=== PATIENT | female | born 1945 | race Caucasian/White ===

== ENCOUNTER 2020-02-12 18:37 | Emergency (ER) | payer MEDICARE, SELFPAY ==
--- NOTE | ~2020-02-12 | CT_ITS ---
EXAMINATION: CT lumbar spine wo con DATE: 02/12/2020 20:29 INDICATION: Low back pain. Left leg pain. TECHNIQUE: Computed tomography (CT) of the lumbar spine was performed without intravenous contrast. A utomated exposure control and iterative reconstruction technique were employed. The dose-length produ ct was 1163.61 mGy-cm. COMPARISON: None FINDINGS: There is 12 degrees levoscoliosis of lumbar spine. There is 3 mm retrolisthesis of L1 on L2 and L2 on L3, 5 mm anterolisthesis of L4 on L5, and 8 mm anterolisthesis of L5 on S1. There is mild chronic anterior wedging of T11 and T12 vertebral bodies. There is severely decreased disc height fro m T10-T11 through L2-L3, moderately decreased disc height at L3-L4, mildly decreased disc height at L 4-L5, and severely decreased disc height at L5-S1. There is interbody fusion at L5-S1. There is Baast rup disease at L3-L4 and L4-L5. The following disc levels are specifically discussed: L1-L2: The disc is bulging. There is mild bilateral facet joint osteoarthritis. There is mild bilater al neural foraminal stenosis. There is mild central canal stenosis. L2-L3: The disc is bulging. There is mild bilateral facet joint osteoarthritis. There is mild bilater al neural foraminal stenosis. There is mild central canal stenosis. L3-L4: The disc is bulging. There is severe bilateral facet joint osteoarthritis. There is mild bilat eral neural foraminal stenosis. There is mild central canal stenosis. L4-L5: The disc is bulging. There is severe bilateral facet joint osteoarthritis. There is moderate b ilateral neural foraminal stenosis. There is moderate central canal stenosis. L5-S1: There is severe bilateral facet joint osteoarthritis. There is mild bilateral neural foraminal stenosis. There is no central canal stenosis. IMPRESSION: 1. Severe lumbar spondylosis. 2. Lumbar levoscoliosis. Reviewed, dictated and finalized at location A.
[2020-02-12 18:37] VITALS: BP 143/109; PULSE 74; RESP 18; TEMP 36.7; O2SAT 100
--- NOTE | 2020-02-12 19:00 | PC.NURSE ---
Spouse at bedside upset that patient has not yet been given pain medication. Educated that patient must be seen by provider prior to administering pain medications. Made aware provider we will be in as soon as possible.
--- NOTE | 2020-02-12 19:02 | PC.NURSE ---
Provider at bedside for assessment.
--- NOTE | 2020-02-12 19:10 | ED.BACK ---
HPI - Back Pain/Injury General Chief Complaint: Extremity Problem,Nontraumatic Stated Complaint: L leg pain Time Seen by Provider: 02/12/20 18:40 Source: patient Mode of arrival: EMS Limitations: no limitations History of Present Illness HPI Narrative: This is a 74 year old female that presents to the ER for left sided low back pain. Reports history of chronic back problems. Reports she sees pain management for this. Reports the pain radiates down her left leg. No recent injury or trauma. Reports about one week ago she had spinal injections which gave her some relief the first couple of days, but pain has worsened since. Denies fever, saddle anesthesia, or bowel/bladder incontinence. Related Data Home Medications Medication Instructions Recorded Confirmed calcium carbonate 500 mg (1,250 1 tablet PO DAILY 03/17/19 03/29/19 mg)-vitamin D3 200 unit tablet melatonin 5 mg tablet 5 mg PO .QHS tablet 03/17/19 03/29/19 omega-3 fatty acids-fish oil 300 300 cap PO DAILY cap 03/17/19 03/29/19 mg-500 mg capsule omeprazole 40 mg capsule,delayed 40 mg PO DAILY 03/18/19 03/29/19 release Allergies Allergy/AdvReac Type Severity Reaction Status Date / Time Penicillins Allergy Unknown AIRWAY Verified 02/12/20 18:44 CLOSES Sulfa (Sulfonamide Allergy Unknown UNKNOWN Verified 02/12/20 18:44 Antibiotics) Review of Systems Review of Systems: Narrative: CONSTITUTIONAL: Denies fever SKIN: Denies rash MUSCULOSKELETAL: Reports back pain, joint pain, and myalgia. NEUROLOGIC: Denies numbness, or weakness. All systems reviewed & are unremarkable except as noted in HPI and below PMFSH Past Medical History Medical History (Updated 02/12/20 @ 21:44 by Lexus Beatty PA-C) Chronic low back pain with left-sided sciatica Depression Duodenal ulcer Dyslipidemia Essential (primary) hypertension GERD (gastroesophageal reflux disease) Hx of adenomatous colonic polyps Idiopathic peripheral neuropathy Neuropathy Pre-diabetes RLS (restless legs syndrome) Sciatica Surgical History Surgical History (Updated 03/29/19 @ 12:43 by Cornelia Moore APRN) Hx of colonoscopy Hx of esophagogastroduodenoscopy Hx of parotidectomy Hx of tonsillectomy Family History Family History (Updated 03/29/19 @ 12:45 by Cornelia Moore APRN) Mother Hypertension Acute myocardial infarction Grandparent Acute myocardial infarction Other Acute myocardial infarction Social History Social History (Updated 03/29/19 @ 12:45 by Cornelia Moore APRN) Smoking packs per day: 1 Smoking cigarettes per day: 20.0 Years smoked: 45 Smoking pack-years: 45.00 Smoking status: Former smoker Tobacco type: cigarettes Second hand tobacco smoke exposure: No Alcohol intake: current Drinks per week: 2 Substance use: never Substance use type: does not use Gender identity (if verbalized by the patient): Female Exam Narrative: Exam Narrative: GENERAL: Well-appearing, obese, and in no acute distress. HEAD: Normocephalic, atraumatic. EYES: EOMI. CHEST: Clear to auscultation. No respiratory distress. No wheezes rales or rhonchi HEART: Regular rate and rhythm. No murmur heard. Normal peripheral pulses. BACK: No midline spinal tenderness EXTREMITIES: Normal range of motion. No edema. Strength equal in bilateral lower extremities (5/5) SKIN: Warm, dry, no rash. NEURO: No focal deficits. Alert and oriented x3. PSYCH: Normal mood and affect Course Vital Signs Vital signs: Vital Signs Temperature 98.1 F 02/12/20 18:37 Pulse Rate 74 02/12/20 18:37 Respiratory Rate 18 02/12/20 18:37 Blood Pressure 143/109 H 02/12/20 18:37 Pulse Oximetry 100 02/12/20 18:37 Temperature 98.1 F 02/12/20 18:37 Pulse Rate 74 02/12/20 18:37 Respiratory Rate 18 02/12/20 18:37 Blood Pressure 119/78 02/12/20 19:29 Pulse Oximetry 100 02/12/20 18:37 MDM - Back Pain/Injury MDM Narrative Medical decision making narr
[2020-02-12] MEDS: diazePAM INJ (*CRX) 10 MG/2 ML SYRINGE 5 MG IV PUSH (19:19)
[2020-02-12 19:25] LABS: Basophils Percent Auto 0.4 % (0.2-1.2); Eosinophils Absolute Auto 0.2 K/mm3 (0-0.3); Eosinophils Percent Auto 1.7 % (0-4.4); Hematocrit 38.4 % (37.0-47.0); Hemoglobin 12.7 g/dL (12.0-15.0); Immature Granulocyte Absolute 0.04 K/mm3 (0.00-0.031); Immature Granulocyte Percent A 0.4 % (0-0.5); Lymphocytes Absolute Auto 3.23 K/mm3 (0.9-3.2); Lymphocytes Percent Auto 34.9 % (18.3-44.2); Mean Corpuscular HGB Conc 33.1 g/dl (32-36); Mean Corpuscular Hemoglobin 32.2 pg (26-34); Mean Corpuscular Volume 97.2 fl (80-100); Mean Platelet Volume 9.7 fl (7.4-10.4); Monocytes Absolute Auto 0.8 K/mm3 (0.1-0.6); Monocytes Percent Auto 8.1 % (2.6-8.5); Neutrophils Percent Auto 54.5 % (45.5-73.1); Platelet Count Result 252 k/mm3 (150-375); Red Blood Count 3.95 M/mm3 (4.2-5.4); Red Cell Distribution Width 12.7 % (11.5-14.5); White Blood Count 9.3 K/mm3 (4.5-10.0)
--- NOTE | 2020-02-12 19:25 | PC.NURSE ---
Called pharmacy for I tylenol. They were making it.
[2020-02-12 19:29] VITALS: BP 119/78
[2020-02-12 19:40] LABS: Anion Gap 9 mmol/L (8-16); Blood Urea Nitrogen 38 mg/dL (7-17); CRP 0.5 mg/dL (<1.0); Calcium 9.5 mg/dL (8.4-10.2); Carbon Dioxide 29 mmol/L (22-30); Chloride 99 mmol/L (98-107); Estimated CRCL calculation 49 ml/min; Estimated Glomerular Filt Rate 54; Glucose 95 mg/dL (65-105); Potassium 4.4 mmol/L (3.4-5.0); Sodium 137 mmol/L (137-145)
[2020-02-12 19:55] LABS: Erythrocyte Sedimentation Rate 50 mm/hr (0-20)
[2020-02-12] MEDS: MORPHINE SULFATE (*CRX) 4 MG/ML INJ IV PUSH (20:01)
[2020-02-12] MEDS: ONDANSETRON INJ 4 MG/2 ML VIAL IV PUSH (20:01)
--- NOTE | 2020-02-12 20:06 | PC.NURSE ---
refused CT due to pain. Made ErP aware and she ordered new meds. Pt requested I wait to call CT back until rshe has some releif from morphine
--- NOTE | 2020-02-12 20:23 | PC.NURSE ---
Pt to CT
--- NOTE | 2020-02-12 20:42 | PC.NURSE ---
Helped pt to use bedside commode. Moved around well and she states the pain was much better. Pt disposition was improved as well.
[2020-02-12] MEDS: KETOROLAC 30 MG/ML VIAL (*BKC) IV PUSH (21:46)
[2020-02-12 22:05] VITALS: BP 108/68; PULSE 58; RESP 18; O2SAT 98
[2020-02-12 22:29] VITALS: BP 111/59; PULSE 61; RESP 18; O2SAT 98
== END 2020-02-12 22:31 | disposition home or self-care (01) ==
PROVIDERS: Physician Assistant; Emergency Provider Emergency Medicine; PCP Family Medicine
DX: M54.42 Lumbago with sciatica, left side (principal); E78.5 Hyperlipidemia, unspecified; I10 Essential (primary) hypertension; K21.9 Gastro-esophageal reflux disease without esophagitis; G60.9 Hereditary and idiopathic neuropathy, unspecified; G25.81 Restless legs syndrome; Z87.891 Personal history of nicotine dependence; M47.816 Spondylosis without myelopathy or radiculopathy, lumbar region
CPT/HCPCS: 36415; 72131; 80048; 85025; 85652; 86140; 96374; 96375; 99284; J0131; J1885; J2270; J2405; J3360

== ENCOUNTER 2020-07-06 16:14 | Outpatient (CLI) | payer MEDICARE, SELFPAY | END 2020-07-06 16:15 | disposition home or self-care (01) | LOC: ANHCOVIDVC 16:14 | PROVIDERS: PCP Family Medicine | DX: Z23 Encounter for immunization (principal) | CPT/HCPCS: 0001A; 91300 ==

== ENCOUNTER 2020-07-27 16:19 | Outpatient (CLI) | payer MEDICARE, SELFPAY | END 2020-07-27 16:20 | disposition home or self-care (01) | LOC: ANHCOVIDVC 16:20 | PROVIDERS: PCP Family Medicine | DX: Z23 Encounter for immunization (principal) | CPT/HCPCS: 0002A; 91300 ==

== ENCOUNTER 2021-03-19 16:04 | Outpatient (CLI) | payer MEDICARE, SELFPAY ==
--- NOTE | ~2021-03-19 | XR_ITS ---
XR shoulder RT min 2V 03/19/2021 16:36 Indication: Right shoulder pain Procedure: 4 views right shoulder Comparison: No prior studies for comparison. Findings: There is severe polyarticular osteoarthritis of the right shoulder with superior subluxatio n of the humeral head, suspicious for rotator cuff tear. There are loose bodies superior to the acrom ioclavicular joint. No acute fracture, subluxation or dislocation. Visualized lung parenchyma is unre markable. 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 Reviewed, dictated and finalized at location A. 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
== END 2021-03-19 16:05 | disposition home or self-care (01) ==
LOC: ANHIMG 16:09
PROVIDERS: PCP Family Medicine; Visit Provider Family Medicine
DX: M19.011 Primary osteoarthritis, right shoulder (principal)
CPT/HCPCS: 73030

== ENCOUNTER 2021-08-30 00:30 | Day surgery (SDC) | payer MEDICARE, SELFPAY ==
[2021-08-23 12:51] VITALS: BMI 38.5
[2021-08-30 11:10] VITALS: BP 141/79; PULSE 77; RESP 18; TEMP 37.2; O2SAT 100
[2021-08-30] MEDS: LACTATED RINGERS 1,000 ML 150 ML IV CONT (11:12)
--- NOTE | 2021-08-30 11:20 | PM.HPGS ---
History of Present Illness History of Present Illness Consent: Risks, benefits, and alternatives have been discussed and questions answered. Patient agrees to proceed with procedure. Chief complaint: melena Narrative: Desirae José is a 75 year old female Who has been found to be markedly anemic. About 5 weeks ago she had black tarry stools for about a 2 week. She does not have a bowel movement every day because she is chronically on opioids. She has not seen any red blood her stools. She was having some nausea with that but not having abdominal pain. several years ago she had a duodenal ulcer that was healed on follow-up EGD a few months later. She has been using aspirin recently. Review of Systems Review of Systems: All systems reviewed & are unremarkable except as noted in HPI and below PMFSH Past Medical History Medical History Chronic low back pain with left-sided sciatica CKD (chronic kidney disease) stage 3, GFR 30-59 ml/min Depression Duodenal ulcer Dyslipidemia Essential (primary) hypertension GERD (gastroesophageal reflux disease) Hx of adenomatous colonic polyps Idiopathic peripheral neuropathy Neuropathy Pre-diabetes RLS (restless legs syndrome) Sciatica Surgical History Surgical History Hx of colonoscopy (~2019) Hx of esophagogastroduodenoscopy (~2019) Hx of parotidectomy (~2004) 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story Smoking packs per day: 1 Smoking cigarettes per day: 20.0 Years smoked: 2 Smoking pack-years: 2.00 Smoking status: Former smoker Tobacco type: cigarettes Second hand tobacco smoke exposure: No Alcohol intake: current Drinks per week: 2 Alcohol use details: rarely Substance use: never Substance use type: does not use Living arrangements: with family Gender identity (if verbalized by the patient): Female Spiritual care concerns: No Meds Home Medications and Allergies Home Medications Medication Instructions Recorded Confirmed Type calcium carbonate 500 mg-vitamin 1 tablet PO DAILY 03/17/19 08/30/21 History D3 5 mcg (200 unit) tablet omega-3 fatty acids-fish oil 300 300 cap PO DAILY cap 03/17/19 08/30/21 History mg-500 mg capsule hydrocodone 10 mg-acetaminophen 1 tablet PO QID PRN tablet 11/30/20 08/30/21 History 325 mg tablet topiramate 25 mg tablet 25 mg PO DAILY 03/19/21 08/30/21 History ropinirole 1 mg tablet 2 mg PO QHS #180 tablet 07/05/21 08/30/21 Rx duloxetine 60 mg capsule,delayed 60 mg PO DAILY #90 cap 08/13/21 08/30/21 Rx release lisinopril 20 1 tablet PO DAILY #90 tablet 08/13/21 08/30/21 Rx mg-hydrochlorothiazide 12.5 mg tablet magnesium 250 mg tablet 250 mg PO DAILY 08/21/21 08/30/21 History multivitamin with minerals-folic 1 tablet PO DAILY 08/21/21 08/30/21 History acid 120 mcg chewable tablet naloxegol 25 mg tablet 25 mg PO DAILY tablet 08/21/21 08/30/21 History omeprazole 40 mg capsule,delayed 40 mg PO DAILY 08/21/21 08/30/21 History release atorvastatin 40 mg tablet 40 mg PO QHS #90 tablet 08/27/21 08/30/21 Rx Allergies Allergy/AdvReac Type Severity Reaction Status Date / Time Penicillins Allergy Unknown AIRWAY Verified 08/30/21 11:08 CLOSES Sulfa (Sulfonamide Allergy Unknown UNKNOWN Verified 08/30/21 11:08 Antibiotics) Vital Signs Vital Signs - 24 hr 08/30/21 11:10 Temperature 37.2 C Pulse Rate 77 Respiratory Rate 18 Blood Pressure 141/79 H Pulse Oximetry 100 Exam Const: General: alert Orientation/consciousness: patient oriented x3 Re
--- NOTE | 2021-08-30 11:28 | WPDANESEPPF ---
Anes - Initial Pre Proc Eval Procedure: Operation Date: 08/30/21 13:00 Proposed Procedures p Esophagogastroduodenoscopy - Peter Melissa MD Date/Time: 08/30/21 11:28 Surgeon: Peter Melissa MD Pre Op Diagnosis: melena Patient Data Age: 75 Gender: F Height: 1.57 m Weight: 97.1 kg Last Vital Signs Temp 37.2 C 08/30/21 11:10 Pulse 77 08/30/21 11:10 Resp 18 08/30/21 11:10 BP 141/79 H 08/30/21 11:10 Pulse Ox 100 08/30/21 11:10 Allergies Allergy/AdvReac Type Severity Reaction Status Date / Time Penicillins Allergy Unknown AIRWAY Verified 08/30/21 11:08 CLOSES Sulfa (Sulfonamide Allergy Unknown UNKNOWN Verified 08/30/21 11:08 Antibiotics) Home Medications Medication Instructions Recorded Confirmed Type calcium carbonate 500 mg-vitamin 1 tablet PO DAILY 03/17/19 08/30/21 History D3 5 mcg (200 unit) tablet omega-3 fatty acids-fish oil 300 300 cap PO DAILY cap 03/17/19 08/30/21 History mg-500 mg capsule hydrocodone 10 mg-acetaminophen 1 tablet PO QID PRN tablet 11/30/20 08/30/21 History 325 mg tablet topiramate 25 mg tablet 25 mg PO DAILY 03/19/21 08/30/21 History ropinirole 1 mg tablet 2 mg PO QHS #180 tablet 07/05/21 08/30/21 Rx duloxetine 60 mg capsule,delayed 60 mg PO DAILY #90 cap 08/13/21 08/30/21 Rx release lisinopril 20 1 tablet PO DAILY #90 tablet 08/13/21 08/30/21 Rx mg-hydrochlorothiazide 12.5 mg tablet magnesium 250 mg tablet 250 mg PO DAILY 08/21/21 08/30/21 History multivitamin with minerals-folic 1 tablet PO DAILY 08/21/21 08/30/21 History acid 120 mcg chewable tablet naloxegol 25 mg tablet 25 mg PO DAILY tablet 08/21/21 08/30/21 History omeprazole 40 mg capsule,delayed 40 mg PO DAILY 08/21/21 08/30/21 History release atorvastatin 40 mg tablet 40 mg PO QHS #90 tablet 08/27/21 08/30/21 Rx Patient hx anesthesia problems: none Family hx anesthesia problems: none Results Review: All pre-operative results and documents have been reviewed as part of the pre-operative evaluation. [facility] Past Medical History Medical History Chronic low back pain with left-sided sciatica CKD (chronic kidney disease) stage 3, GFR 30-59 ml/min Depression Duodenal ulcer Dyslipidemia Essential (primary) hypertension GERD (gastroesophageal reflux disease) Hx of adenomatous colonic polyps Idiopathic peripheral neuropathy Neuropathy Pre-diabetes RLS (restless legs syndrome) Sciatica Surgical History Surgical History Hx of colonoscopy (~2018) Hx of esophagogastroduodenoscopy (~2018) Hx of parotidectomy (~2004) 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story Smoking packs per day: 1 Smoking cigarettes per day: 20.0 Years smoked: 2 Smoking pack-years: 2.00 Smoking status: Former smoker Tobacco type: cigarettes Second hand tobacco smoke exposure: No Alcohol intake: current Drinks per week: 2 Alcohol use details: rarely Substance use: never Substance use type: does not use Living arrangements: with family Gender identity (if verbalized by the patient): Female Spiritual care concerns: No Anes - Eval Final PreProcedure Day of Procedure 08/30/21 11:28 Patient weight: obese Heart: regular rate and rhythm Lungs: clear to auscultation Airway: Mallampati scale class II Neurological: alert and oriented Last oral intake: >/= 8 hours ASA classification: III Emergent: no Anesthetic plan: proceed Anesthesia type and monitoring: general GIVS and standard monitoring Results Review: All pre-op
[2021-08-30 11:59] VITALS: BP 115/70; PULSE 59; RESP 23; O2SAT 100
[2021-08-30 12:09] VITALS: BP 132/81; PULSE 61; RESP 16; O2SAT 100
[2021-08-30 12:19] VITALS: BP 124/72; PULSE 60; RESP 28; O2SAT 100
== END 2021-08-30 12:30 | disposition home or self-care (01) ==
PROVIDERS: PCP Family Medicine; Visit Provider Internal Medicine Gastroenterology
PROC: 0DJ08ZZ Inspection of Upper Intestinal Tract, Via Natural or Artificial Opening Endoscopic (ICD-10-PCS; CPT 43235; principal; 2021-08-30 13:00)
DX: K92.1 Melena (principal); K29.71 Gastritis, unspecified, with bleeding; K21.9 Gastro-esophageal reflux disease without esophagitis; K29.80 Duodenitis without bleeding; I12.9 Hypertensive chronic kidney disease with stage 1 through stage 4 chronic kidney disease, or unspecified chronic kidney disease; N18.30 Chronic kidney disease, stage 3 unspecified; E78.5 Hyperlipidemia, unspecified; R73.03 Prediabetes; M54.42 Lumbago with sciatica, left side; G60.9 Hereditary and idiopathic neuropathy, unspecified; G25.81 Restless legs syndrome; F32.A Depression, unspecified; Z87.11 Personal history of peptic ulcer disease; Z87.891 Personal history of nicotine dependence; Z86.010 Personal history of colon polyps; Z79.891 Long term (current) use of opiate analgesic
CPT/HCPCS: 43239; 87081; J2704; J7120

== ENCOUNTER 2021-09-11 15:48 | Outpatient (CLI) | payer MEDICARE, SELFPAY ==
--- NOTE | ~2021-09-11 | MM_ITS ---
EXAMINATION: MM screening abby BI w kerri HISTORY: Screening mammogram TECHNIQUE: Craniocaudal and mediolateral oblique 3-D tomosynthesis images were obtained and synthetic 2-D images were generated. CAD analysis was submitted and interpreted. COMPARISON: None BREAST PARENCHYMAL COMPOSITION: The breasts are almost entirely fatty. FINDINGS: There is no suspicious mass, calcification, or architectural distortion to suggest malignan cy in either breast. IMPRESSION: 1. No mammographic evidence of malignancy. 2. Recommend routine screening mammography in one year. BI-RADS Category 1: Negative Reviewed, dictated and finalized at location A.
== END 2021-09-11 15:49 | disposition home or self-care (01) ==
PROVIDERS: PCP Family Medicine; Visit Provider Family Medicine
DX: Z12.31 Encounter for screening mammogram for malignant neoplasm of breast (principal)
CPT/HCPCS: 77063; 77067

== ENCOUNTER 2021-09-21 08:57 | Outpatient (CLI) | payer MEDICARE, SELFPAY ==
--- NOTE | ~2021-09-21 | NM_ITS ---
EXAMINATION: NM thor stress w perfusion DATE: 09/21/2021 14:56 INDICATION: Other chest pain. TECHNIQUE: Rest images were obtained following intravenous administration of 9.3 mCi Tc99m tetrofosmi n (Myoview). The patient was infused intravenously with Lexiscan (regadenoson). Then, 29.6 mCi Tc99m tetrofosmin (Myoview) was administered intravenously, and stress images were obtained. Data was recon structed into short axis and horizontal and vertical long axis SPECT images. Gated SPECT images were also obtained. COMPARISON: None. FINDINGS: There is a moderate-sized, mild, reversible perfusion defect involving left ventricular ape x, apical septal segment, and apical anterior segment, consistent with ischemia. There is a small, mi ld, fixed perfusion defect involving mid inferolateral segment of left ventricle, consistent with inf arct. There is no segmental wall motion abnormality. Left ventricular ejection fraction measures 64% . IMPRESSION: 1. Moderate-sized area of mild ischemia involving left ventricular apex, apical septal segment, and a pical anterior segment. I discussed this result with Selene De La Cruz. 2. 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 3. Normal left ventricular ejection fraction measuring 64%. Reviewed, dictated and finalized at location A. IMPRESSION: 1. Moderate-sized area of mild ischemia involving left ventricular apex, apical septal segment, and apical anterior segment. I discussed this result with Christine De La Cruz. 2. Small area of mild infarct involving mid inferolateral segment of left ventr icle. 3. Normal left ventricular ejection fraction measuring 64%.
--- NOTE | 2021-09-21 09:08 | EST_ITS ---
Patient Info Name: Desirae José Age: 75 years : 1945 Gender: Female Ht: 62 in Wt: 216 lbs BSA: 2.12 m2 HR: 65 bpm BP: 121 / 79 mmHg Heart Rhythm: Sinus Rhythm Exam Date: 09/21/2021 10:08 AM Exam Location: [facility] Stress Patient Status: Outpatient Admit Date: 09/21/2021 Staff Ordering Physician: Kalpana Hardy MD Attending Provider: Kalpana Hardy MD Exercise Technologist: Joanne Ibrahim CT Exercise Physician: Lopez Conti DO Exam Type: CA stress thor w NM Study Info Indications R06.00 - Dyspnea, unspecified R07.9 - Chest pain, unspecified A regadenoson stress test was performed. Summary 1. 1. Negative lexiscan stress test for ischemic ST changes by ECG criteria. 2. 2. Stable hemodynamics throughout the test. 3. 3. Nuclear scan to follow and will be reported separately. Please correlate with it. 4. 4. Patient informed of the above results. Protocol: Lexiscan Stress ECG Details Stage: REST Duration (min): 11 min : 34 sec HR (bpm): 62 SBP (mmHg): 121 DBP (mmHg): 79 Stage: STAGE 1 Duration (min): 0 min : 59 sec HR (bpm): 77 SBP (mmHg): 121 DBP (mmHg): 79 Stage: RECOVERY Duration (min): 1 min : 0 sec HR (bpm): 76 SBP (mmHg): 121 DBP (mmHg): 79 Stage: RECOVERY Duration (min): 2 min : 0 sec HR (bpm): 75 SBP (mmHg): 110 DBP (mmHg): 88 Stage: RECOVERY Duration (min): 3 min : 0 sec HR (bpm): 70 SBP (mmHg): 108 DBP (mmHg): 83 Stage: RECOVERY Duration (min): 3 min : 3 sec HR (bpm): 70 SBP (mmHg): 108 DBP (mmHg): 83 Rest HR: 62 bpm Peak HR: 77 bpm Rest Sys BP: 121 mmHg Peak Sys BP: 110 mmHg Max Pred HR: 145 bpm % Max Pred HR: 53 % Target HR: 123 bpm Max RPP: 8,470 bpm*mmHg Termination Reason: Completed protocol Cardiac Symptoms: None Total Time: 1 min : 0 sec Rest Roberts BP: 79 mmHg Peak Roberts BP: 88 mmHg Total Dose: 0.4 mg Resting ECG Sinus rhythm, low voltage in diffuse leads, IVCD, PRWP. Stress ECG No ST changes. Arrhythmias None. Report Signatures
== END 2021-09-21 08:58 | disposition home or self-care (01) ==
PROVIDERS: PCP Family Medicine; Visit Provider Family Medicine
DX: R06.00 Dyspnea, unspecified (principal); R07.89 Other chest pain; R94.39 Abnormal result of other cardiovascular function study
CPT/HCPCS: 78452; 93017; A9502; J0280; J2785

== ENCOUNTER 2021-10-15 12:59 | Outpatient (CLI) | payer MEDICARE, SELFPAY ==
--- NOTE | ~2021-10-15 | US_ITS ---
EXAMINATION: US venous doppler [facility] DATE: 10/15/2021 14:02 INDICATION: Lower limb swelling TECHNIQUE: Grayscale ultrasound images without and with compression and Doppler ultrasound images of the bilateral lower extremity veins were obtained. COMPARISON: None. FINDINGS: The visualized portions of right common femoral vein, profunda (deep) femoral vein, femoral vein, pop liteal vein, posterior tibial veins, peroneal veins, gastrocnemius vein and greater saphenous vein ou tflow are patent. The visualized portions of left common femoral vein, profunda femoral vein, femoral vein, popliteal v ein, posterior tibial veins, peroneal veins, gastrocnemius vein and greater saphenous vein outflow ar e patent. IMPRESSION: 1. No deep venous thrombosis in either lower limb. Reviewed, dictated and finalized at location B.
== END 2021-10-15 13:00 | disposition home or self-care (01) ==
PROVIDERS: PCP Family Medicine; Visit Provider Internal Medicine Cardiovascular Disease
DX: R60.0 Localized edema (principal)
CPT/HCPCS: 93970

== ENCOUNTER 2022-01-24 11:00 | Outpatient (RCR) | payer MEDICARE, SELFPAY | END 2022-01-28 16:29 | disposition home or self-care (01) | LOC: ANHCPREHAB 11:00 | PROVIDERS: PCP Family Medicine; Visit Provider Internal Medicine Cardiovascular Disease | DX: Z95.5 Presence of coronary angioplasty implant and graft (principal) | CPT/HCPCS: 93798 ==

== ENCOUNTER 2022-05-09 12:35 | Outpatient (RCR) | payer MEDICARE, SELFPAY ==
--- NOTE | 2022-05-09 13:46 | PTOPEVAL1 ---
Assessment and note entered by Renae Otero, PT, CLT Evaluation Information Assessment Status Evaluation Diagnosis B LE lymphedema Onset October 2021 Subjective Information have had swelling in legs off/on for long time; L always bigger than R; since heart surgery in October, legs have gotten bigger and problems getting shoes on; have been wearing compression leggings and they have helped; furosemide has been increased under pain management care for back and R shoulder pain Reported Pain Level Pain Score 2/10 Self Report Additional Pain Score Comments both legs heavy and uncomfortable; chronic pain in tail bone, sciatica--into posterior legs; take opioids for it; Assessment PT Clinical Summary Desirae Anderson has the diagnosis of B LE lymphedema. She reports chronic problems with legs swelling that increased after her heart surgery this summer. Her legs are heavy and tight, and shoes no longer fit. She has been working on weight loss. 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 Skilled PT for lymphedema treatment- including multilayer compression wraps, manual lymph drainage, intermittent compression pump, education to manage her lymphedema, compression garment for her to obtain. Plan of Care Interventions Intermittent Compression,Lymphedema Compression Pump Manual Lymph Drainage,Manual Therapy,Therapeutic Exercise PT Services Indicated Yes Treatment Frequency and 3x/wk for 5 weeks Duration These treatments will address the objective and functional deficits as defined above. The patient will be advanced safely and appropriately in order for the patient to progress towards his/her prior level of function. Additional exercises will be introduced and as well as a comprehensive home exercise program upon discharge, if needed, ?to ensure carryover of functional gains achieved in the clinic. This treatment plan has been reviewed and agreement upon by the patient.
--- NOTE | 2022-05-20 13:46 | PCPTNOTE ---
pt called and canceled all appointments; I called her back, she stated she is going to pursue other options and did not want therapy at this time. Discussed with her she would need a new dr order if want to come back. She did not have any questions.
--- NOTE | 2022-05-20 13:48 | PCPTNOTE ---
PHYSICAL THERAPY DISCHARGE 05-20-22 Attending Provider: Skinny Hardy MD Patient:Desirae José Date of :1945 Mrs. José had the PT evaluation on May 09 for the diagnosis of B LE lymphedema. She called last week and canceled all of her appointments, stated she was going to pursue other options. And did not want therapy at this time. Therefore, she will be discharged from PT services. The goals were not met. Thank you for referring this patient to [facility].
== END 2022-05-20 17:06 | disposition home or self-care (01) ==
LOC: ANHPT 12:35
PROVIDERS: PCP Family Medicine; Visit Provider Family Medicine
DX: I89.0 Lymphedema, not elsewhere classified (principal)
CPT/HCPCS: 97161

== ENCOUNTER 2022-07-19 12:56 | Emergency (ER) | payer MEDICARE, SELFPAY ==
--- NOTE | ~2022-07-19 | XR_ITS ---
Left Knee Technique: AP, lateral, and oblique views were obtained. Clinical History: Pain Findings: No fracture or dislocation is seen. There is severe tricompartmental osteoarthritis, with l arge tricompartmental osteophytes and joint space narrowing. Diffuse subcutaneous soft tissue edema n oted. No joint effusion is seen. Impression: No fracture or dislocation. Severe tricompartmental osteoarthritis. Diffuse subcutaneous soft tissue edema, nonspecific. Reviewed, dictated and finalized at location [facility]. Impression: No fracture or dislocation. Severe tricompartmental osteoarthritis. Diffuse subcutaneous soft tissue edema, nonspecific.
[2022-07-19 13:06] VITALS: BP 131/61; PULSE 70; RESP 12; TEMP 36.6; O2SAT 100
--- NOTE | 2022-07-19 13:30 | ED.LOWEXIN ---
HPI - Extremity Injury (Lower) General Chief Complaint: Extremity Injury, Lower Stated Complaint: lt knee injury Source: patient Mode of arrival: ambulatory Limitations: no limitations History of Present Illness HPI Narrative: 76 y/o female presented for c/o left knee pain and left lower extremity swelling worsening after fall about 2-3 weeks ago. States she tripped on the carpet and 'was airborne' and landed on the left knee. Patient reports the swelling has increased since the fall, now from thigh to foot, and the lower leg skin feels tight. Patient reports chronic bilateral lymphedema, for which she wears compression stockings and uses sequential machine, however immediately after the injury the knee was bruised and swollen so she did not wear the compression stockings, and she has been unable to wear the stocking due to the increase in swelling. Endorses pain to the leg intermittently, the hydrocodone she takes for chronic arthritis helps. Denies numbness, tingling or weakness. Uses a cane at baseline. Hx CAD s/p PTCI (09/2021), CKD, pre DM, peripheral neuropathy. Taking antiplatelet as directed. Related Data Home Medications Medication Instructions Recorded Confirmed calcium carbonate 500 mg-vitamin 1 tablet PO DAILY 03/17/19 07/19/22 D3 5 mcg (200 unit) tablet (Calcium 500 + D) omega-3 fatty acids-fish oil 300 300 cap PO DAILY 03/17/19 07/19/22 mg-500 mg capsule (Fish Oil) hydrocodone 10 mg-acetaminophen 1 tablet PO QID PRN Pain 11/30/20 07/19/22 325 mg tablet magnesium 250 mg tablet 250 mg PO DAILY 08/21/21 07/19/22 multivitamin with minerals-folic 1 tablet PO DAILY 08/21/21 07/19/22 acid 120 mcg chewable tablet (Centrum Adult 50 Plus Fresh-Fruity) naloxegol 25 mg tablet (Movantik) 50 mg PO DAILY 08/21/21 07/19/22 topiramate 50 mg tablet 50 mg PO DAILY 10/16/21 07/19/22 acetaminophen 500 mg tablet 500 mg PO Q6H PRN Pain 12/25/21 07/19/22 aspirin 81 mg tablet 81 mg PO DAILY 12/25/21 07/19/22 coenzyme Q10 100 mg capsule (Co 200 mg PO DAILY 12/25/21 07/19/22 Q-10) docusate sodium 100 mg capsule 100 mg PO BID 12/25/21 07/19/22 (Colace) furosemide 20 mg tablet 20 mg PO DAILY 12/26/21 07/19/22 metoprolol succinate 25 mg 12.5 mg PO DAILY 12/26/21 07/19/22 tablet,extended release 24 hr sacubitril 24 mg-valsartan 26 mg 1 tablet PO BID 12/26/21 07/19/22 tablet (Entresto) ticagrelor 90 mg tablet (Brilinta) 90 mg PO Q12H 12/26/21 07/19/22 Neuropaquell 800 mg PO DAILY 04/02/22 07/19/22 Allergies Allergy/AdvReac Type Severity Reaction Status Date / Time Penicillins Allergy Unknown AIRWAY Verified 04/02/22 14:17 CLOSES Sulfa (Sulfonamide Allergy Unknown UNKNOWN Verified 04/02/22 14:17 Antibiotics) Review of Systems Review of Systems: CONSTITUTIONAL: Denies body aches, fever, chills EYES: Denies visual changes ENT: Denies rhinorrhea, congestion CARDIOVASCULAR: Denies chest pain, palpitations, or edema. RESPIRATORY: Denies cough or dyspnea. GASTROINTESTINAL: Denies abdominal pain, nausea, vomiting, or diarrhea. SKIN: Denies rash, itching, or wounds. MUSCULOSKELETAL: per HPI NEUROLOGIC: Denies headache, numbness, tingling, or weakness. All systems reviewed & are unremarkable except as noted in HPI and below PMFSH Past Medical History Medical History CAD in [place] artery Chronic low back pain with left-sided sciatica CKD (chronic kidney disease) stage 3, GFR 30-59 ml/min Depression Duodenal ulcer Dyslipidemia Essential (primary) hypertension GERD (gastroesophageal reflux disease) Hx of adenomatous colonic polyps Idiopathic peripheral neuropathy Lymphedema of both lower extremities Neuropathy Pre-diabetes RLS (restless legs syndrome) Sciatica Surgical History Surgical History Hx of colonoscopy (~2018) Hx of esophagogastroduodenoscopy (~2018) Hx of parotidectomy (~2004)
== END 2022-07-19 14:05 | disposition home or self-care (01) ==
PROVIDERS: Emergency Provider Nurse Practitioner Family; PCP Family Medicine
DX: M79.89 Other specified soft tissue disorders (principal); I12.9 Hypertensive chronic kidney disease with stage 1 through stage 4 chronic kidney disease, or unspecified chronic kidney disease; N18.30 Chronic kidney disease, stage 3 unspecified; E78.5 Hyperlipidemia, unspecified; I25.10 Atherosclerotic heart disease of native coronary artery without angina pectoris; Z79.82 Long term (current) use of aspirin; Z79.891 Long term (current) use of opiate analgesic; Z87.891 Personal history of nicotine dependence; W01.0XXA Fall on same level from slipping, tripping and stumbling without subsequent striking against object, initial encounter
CPT/HCPCS: 73564; 99213; G0463

== ENCOUNTER 2022-07-19 14:28 | Emergency (ER) | payer MEDICARE, SELFPAY ==
--- NOTE | ~2022-07-19 | US_ITS ---
Left lower extremity US venous doppler LE DATE: 07/19/2022 15:10 INDICATION: Erythema, swelling, pain of left lower extremity TECHNIQUE: Real-time and color flow imaging and Doppler analysis of the veins of the left lower extre mity COMPARISON: None FINDINGS: The left greater saphenous vein is patent. There is spontaneous and phasic flow and normal augmentation and color flow signal and normal compression of the left common femoral, femoral poplite al veins. The posterior tibial and peroneal veins are not visualized, likely due to edema. IMPRESSION: Posterior tibial and peroneal veins are not visualized, likely due to edema No evidence of deep venous thrombosis of left common femoral, femoral popliteal veins Reviewed, dictated and finalized at [facility]. Reviewed, dictated and finalized at location [facility].
[2022-07-19 14:32] VITALS: BP 132/68; PULSE 63; RESP 15; TEMP 36.4; O2SAT 100
--- NOTE | 2022-07-19 16:22 | ED.LOWEXIN ---
HPI - Extremity Injury (Lower) General Chief Complaint: Extremity Injury, Lower Stated Complaint: left leg pain and swelling-sent from Time Seen by Provider: 07/19/22 16:03 History of Present Illness HPI Narrative: Patient is a 76-year-old female with a history of chronic lymphedema here for evaluation of left lower extremity swelling x1 week. Patient states that she had a mechanical fall about a week ago landing on her left knee, since then she has had pain in the knee and swelling to the left lower extremity. Patient states that her pain has prevented her from wearing her compression stockings for her lymphedema and therefore her leg has become very swollen. She was sent from urgent care to rule out DVT. She denies any fevers, chills, nausea, vomiting, weakness, chest pain or shortness of breath. Related Data Home Medications Medication Instructions Recorded Confirmed calcium carbonate 500 mg-vitamin 1 tablet PO DAILY 03/17/19 07/19/22 D3 5 mcg (200 unit) tablet (Calcium 500 + D) omega-3 fatty acids-fish oil 300 300 cap PO DAILY 03/17/19 07/19/22 mg-500 mg capsule (Fish Oil) hydrocodone 10 mg-acetaminophen 1 tablet PO QID PRN Pain 11/30/20 07/19/22 325 mg tablet magnesium 250 mg tablet 250 mg PO DAILY 08/21/21 07/19/22 multivitamin with minerals-folic 1 tablet PO DAILY 08/21/21 07/19/22 acid 120 mcg chewable tablet (Centrum Adult 50 Plus Fresh-Fruity) naloxegol 25 mg tablet (Movantik) 50 mg PO DAILY 08/21/21 07/19/22 topiramate 50 mg tablet 50 mg PO DAILY 10/16/21 07/19/22 acetaminophen 500 mg tablet 500 mg PO Q6H PRN Pain 12/25/21 07/19/22 aspirin 81 mg tablet 81 mg PO DAILY 12/25/21 07/19/22 coenzyme Q10 100 mg capsule (Co 200 mg PO DAILY 12/25/21 07/19/22 Q-10) docusate sodium 100 mg capsule 100 mg PO BID 12/25/21 07/19/22 (Colace) furosemide 20 mg tablet 20 mg PO DAILY 12/26/21 07/19/22 metoprolol succinate 25 mg 12.5 mg PO DAILY 12/26/21 07/19/22 tablet,extended release 24 hr sacubitril 24 mg-valsartan 26 mg 1 tablet PO BID 12/26/21 07/19/22 tablet (Entresto) ticagrelor 90 mg tablet (Brilinta) 90 mg PO Q12H 12/26/21 07/19/22 Neuropaquell 800 mg PO DAILY 04/02/22 07/19/22 Allergies Allergy/AdvReac Type Severity Reaction Status Date / Time Penicillins Allergy Unknown AIRWAY Verified 04/02/22 14:17 CLOSES Sulfa (Sulfonamide Allergy Unknown UNKNOWN Verified 04/02/22 14:17 Antibiotics) Review of Systems Review of Systems: Gen.: Denies fevers or chills Eyes: Denies eye pain or visual change ENT: Denies congestion Respiratory: Denies shortness of breath or cough CV: Denies chest pain or palpitations GI: Denies abdominal pain nausea, emesis or diarrhea denies burning, urgency, frequency or hematuria Musculoskeletal: Reports left leg pain Neuro: Denies numbness, tingling, weakness or focal weakness Skin: Denies rash Except as documented, all other systems reviewed and negative [facility] Past Medical History Medical History CAD in [place] artery Chronic low back pain with left-sided sciatica CKD (chronic kidney disease) stage 3, GFR 30-59 ml/min Depression Duodenal ulcer Dyslipidemia Essential (primary) hypertension GERD (gastroesophageal reflux disease) Hx of adenomatous colonic polyps Idiopathic peripheral neuropathy Lymphedema of both lower extremities Neuropathy Pre-diabetes RLS (restless legs syndrome) Sciatica Surgical History Surgical History Hx of colonoscopy (~2018) Hx of esophagogastroduodenoscopy (~2019) Hx of parotidectomy (~2004) 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
[2022-07-19 16:33] VITALS: BP 103/71; PULSE 60; RESP 14; O2SAT 100
== END 2022-07-19 16:35 | disposition home or self-care (01) ==
PROVIDERS: Emergency Provider Physician Assistant; PCP Family Medicine
DX: M79.89 Other specified soft tissue disorders (principal); I12.9 Hypertensive chronic kidney disease with stage 1 through stage 4 chronic kidney disease, or unspecified chronic kidney disease; N18.30 Chronic kidney disease, stage 3 unspecified; G62.9 Polyneuropathy, unspecified; I25.10 Atherosclerotic heart disease of native coronary artery without angina pectoris; E78.5 Hyperlipidemia, unspecified; K21.9 Gastro-esophageal reflux disease without esophagitis; F32.A Depression, unspecified; G25.81 Restless legs syndrome; Z87.891 Personal history of nicotine dependence; Z79.891 Long term (current) use of opiate analgesic; Z79.82 Long term (current) use of aspirin; Z79.01 Long term (current) use of anticoagulants
CPT/HCPCS: 73564; 93971; 99284

== ENCOUNTER 2022-11-06 16:02 | Outpatient (CLI) | payer MEDICARE, SELFPAY ==
[2022-11-06 18:28] LABS: Alanine Aminotransferase 21 U/L (6-35); Albumin Level 4.3 g/dL (3.5-5.1); Alkaline Phosphatase 65 U/L (38-126); Anion Gap 0 mmol/L (8-16); Aspartate Amino Transferase 72 U/L (14-36); Bilirubin,Total 0.4 mg/dL (0.2-1.3); Blood Urea Nitrogen 42 mg/dL (7-17); Calcium 9.1 mg/dL (8.4-10.2); Carbon Dioxide 36 mmol/L (22-30); Chloride 98 mmol/L (98-107); Estimated Glomerular Filt Rate 54; Glucose 85 mg/dL (65-110); Potassium 4.2 mmol/L (3.4-5.0); Sodium 134 mmol/L (137-145)
[2022-11-06 18:57] LABS: Hemoglobin A1C 5.6 % (<5.7)
== END 2022-11-06 16:03 | disposition home or self-care (01) ==
LOC: ANHGOSHLAB 16:03
PROVIDERS: PCP Family Medicine; Visit Provider Family Medicine
DX: E78.5 Hyperlipidemia, unspecified (principal); I10 Essential (primary) hypertension; R73.03 Prediabetes
CPT/HCPCS: 36415; 80053; 83036

== ENCOUNTER → 2022-11-07 15:16 | Outpatient (CLI) | payer MEDICARE, SELFPAY ==
--- NOTE | ~2022-11-07 | XR_ITS ---
EXAMINATION: XR hip RT min 3V w AP pelvis DATE: 11/07/2022 15:53 INDICATION: Chronic right hip pain TECHNIQUE: Anteroposterior view of the pelvis and anteroposterior, frog leg and cross-table lateral v iews of the right hip were obtained. COMPARISON: None. FINDINGS: Alignment is normal. No fracture or suspected avascular necrosis. Mild bilateral hip and mild to mode rate bilateral sacroiliac osteoarthritis. Moderate to severe lower lumbar spondylosis. IMPRESSION: 1. Mild bilateral hip and mild to moderate bilateral sacroiliac osteoarthritis. 2. Moderate to severe lower lumbar spondylosis. Reviewed, dictated and finalized at location [facility].
== END ==
PROVIDERS: PCP Family Medicine; Visit Provider Family Medicine
DX: M16.0 Bilateral primary osteoarthritis of hip (principal); M47.896 Other spondylosis, lumbar region
CPT/HCPCS: 73502

== ENCOUNTER 2022-11-29 14:30 | Emergency (ER) | payer MEDICARE, SELFPAY ==
[2022-11-29 14:45] VITALS: BP 97/63; PULSE 63; RESP 16; TEMP 36.9; O2SAT 99
--- NOTE | 2022-11-29 14:56 | ED.BACK ---
HPI - Back Pain/Injury General Chief Complaint: Back Pain/Injury Stated Complaint: BACK PAIN Time Seen by Provider: 11/29/22 14:45 Source: patient Mode of arrival: ambulatory Limitations: no limitations History of Present Illness HPI Narrative: 76-year-old male presents with her with complaint of left-sided sciatica radiating down into her left hip, buttock down to her left ankle. Reports symptoms for approximately 3 days. Reports history of sciatica. Last flare was 1 year ago. Reports that she went to the ER at that time and was given a morphine shot. She has a prescription from her primary care physician for hydrocortisone that she has been taking 3 times a day. She is in addition taking Tylenol 3 to 4 times a day. Ambulatory with steady gait using cane. No weakness to lower extremities. No loss of bowel or bladder. In the past patient has gone to physical therapy to help her pain. She has not called her primary care physician regarding her symptoms. She came to [facility] hoping to get relief of her pain with morphine. All systems reviewed and negative except as noted above. Related Data Home Medications Medication Instructions Recorded Confirmed calcium carbonate 500 mg-vitamin 1 tablet PO DAILY 03/17/19 11/29/22 D3 5 mcg (200 unit) tablet (Calcium 500 + D) omega-3 fatty acids-fish oil 300 300 cap PO DAILY 03/17/19 11/06/22 mg-500 mg capsule (Fish Oil) hydrocodone 10 mg-acetaminophen 1 tablet PO QID PRN Pain 11/30/20 11/29/22 325 mg tablet magnesium 250 mg tablet 250 mg PO DAILY 08/21/21 11/29/22 multivitamin with minerals-folic 1 tablet PO DAILY 08/21/21 11/29/22 acid 120 mcg chewable tablet (Centrum Adult 50 Plus Fresh-Fruity) naloxegol 25 mg tablet (Movantik) 50 mg PO DAILY 08/21/21 11/29/22 topiramate 50 mg tablet 50 mg PO DAILY 10/16/21 11/29/22 acetaminophen 500 mg tablet 500 mg PO Q6H PRN Pain 12/25/21 11/29/22 aspirin 81 mg tablet 81 mg PO DAILY 12/25/21 11/29/22 docusate sodium 100 mg capsule 100 mg PO BID 12/25/21 11/29/22 (Colace) furosemide 20 mg tablet 20 mg PO DAILY 12/26/21 11/29/22 metoprolol succinate 25 mg 12.5 mg PO DAILY 12/26/21 11/29/22 tablet,extended release 24 hr sacubitril 24 mg-valsartan 26 mg 1 tablet PO BID 12/26/21 11/29/22 tablet (Entresto) ticagrelor 90 mg tablet (Brilinta) 90 mg PO Q12H 12/26/21 11/06/22 Neuropaquell 800 mg PO DAILY 04/02/22 11/29/22 Allergies Allergy/AdvReac Type Severity Reaction Status Date / Time Penicillins Allergy Unknown AIRWAY Verified 11/29/22 14:38 CLOSES Sulfa (Sulfonamide Allergy Unknown UNKNOWN Verified 11/29/22 14:38 Antibiotics) Review of Systems Review of Systems: CONSTITUTIONAL: Denies fever, chills, or sweats. EYES: Denies visual changes, redness, or discharge. ENT: Denies rhinorrhea, congestion, sore throat, or otalgia. CARDIOVASCULAR: Denies chest pain, palpitations, or edema. RESPIRATORY: Denies cough or dyspnea. GASTROINTESTINAL: Denies abdominal pain, nausea, vomiting, or diarrhea. GENITOURINARY: Denies dysuria or hematuria. SKIN: Denies rash or itching. MUSCULOSKELETAL: Reports left-sided low back pain. Denies joint pain, or myalgia. NEUROLOGIC: Denies headache, numbness, or weakness. PSYCHIATRIC: Denies anxiety or depression. All other systems reviewed are negative, except as documented in HPI. [facility] Past Medical History Medical History (Updated 11/29/22 @ 14:55 by Christina Garza NP) CAD in [place] artery Chronic low back pain with left-sided sciatica Chronic pain of left knee Chronic right hip pain CKD (chronic kidney disease) stage 3, GFR 30-59 ml/min Depression Duodenal ulcer Dyslipidemia Essential (primary) hypertension GERD (gastroesophageal reflux disease) Hx of adenomatous colonic polyps Idiopathic peripheral neuropathy Lymphedema of both lower extremities Neuropathy Pre-diabetes RLS (restless legs syndrome) Sciatica Tricompartment osteoarthritis of left knee
== END 2022-11-29 14:58 | disposition home or self-care (01) ==
PROVIDERS: Emergency Provider Nurse Practitioner Family; PCP Family Medicine
DX: M54.42 Lumbago with sciatica, left side (principal); Z87.891 Personal history of nicotine dependence; I25.10 Atherosclerotic heart disease of native coronary artery without angina pectoris; I13.10 Hypertensive heart and chronic kidney disease without heart failure, with stage 1 through stage 4 chronic kidney disease, or unspecified chronic kidney disease; N18.30 Chronic kidney disease, stage 3 unspecified; E78.5 Hyperlipidemia, unspecified; K21.9 Gastro-esophageal reflux disease without esophagitis; R73.03 Prediabetes; G25.81 Restless legs syndrome; G60.9 Hereditary and idiopathic neuropathy, unspecified; Z95.5 Presence of coronary angioplasty implant and graft
CPT/HCPCS: 99213; G0463

== ENCOUNTER 2023-01-29 15:36 | Outpatient (CLI) | payer MEDICARE, SELFPAY ==
--- NOTE | ~2023-01-29 | US_ITS ---
EXAMINATION: US venous doppler LE RT DATE: 01/29/2023 16:26 INDICATION: M79.661 - Pain in right lower leg, swelling. TECHNIQUE: Grayscale images without and with compression and Doppler images of the right lower extrem ity veins were obtained. COMPARISON: None FINDINGS: The right common femoral vein, profunda (deep) femoral vein, femoral vein, popliteal vein, peroneal v ein, posterior tibial veins, gastrocnemius vein, and greater saphenous vein are patent. IMPRESSION: Patent right lower extremity veins. No evidence of deep venous thrombosis. Reviewed, dictated and finalized at location K.
== END 2023-01-29 15:37 | disposition home or self-care (01) ==
LOC: ANHIMG 15:41
PROVIDERS: PCP Family Medicine; Visit Provider Family Medicine
DX: M79.661 Pain in right lower leg (principal); R22.41 Localized swelling, mass and lump, right lower limb
CPT/HCPCS: 93971

== ENCOUNTER 2024-01-01 13:55 | Outpatient (CLI) | payer MEDICARE, SELFPAY ==
--- NOTE | ~2024-01-01 | XR_ITS ---
XR chest 2V 01/01/2024 14:30 Indication: Dyspnea Procedure: 2 view chest Comparison: No prior studies for comparison. Findings: Heart size normal. No focal air space disease, pulmonary edema, pleural effusion or suspect ed pneumothorax. Mild enlargement of the central pulmonary arteries. There is a right shoulder arthro plasty. Impression: 1: No acute cardiopulmonary disease. Reviewed, dictated and finalized at location B. Impression: 1: No acute cardiopulmonary disease.
--- NOTE | ~2024-01-01 | CT_ITS ---
EXAMINATION: CT thoracic spine wo con DATE: 01/01/2024 14:27 INDICATION: Radiculopathy. TECHNIQUE: Computed tomography (CT) of the thoracic spine was performed without intravenous contrast. Automated exposure control and iterative reconstruction technique were employed. The dose-length pro duct was 785.99 mGy-cm. COMPARISON: None FINDINGS: There is 4 degrees dextrocurvature of thoracic spine. There is mild chronic anterior wedgin g of multiple vertebral bodies. There is interbody fusion at T7-T8 and T9-T10. There is 3 mm retrolis thesis of T12 on L1. There is decreased disc height at most levels, severe from T4-T5 through T12-L1. There is multilevel facet joint osteoarthritis, severe at a few levels. There is mild neural foramin al stenosis at a few levels bilaterally. At T8-T9, there is moderate bilateral neural foraminal steno sis. There is mild central canal stenosis at T10-T11, T11-T12, and T12-L1. IMPRESSION: 1. Severe thoracic spondylosis. Reviewed, dictated and finalized at location A.
[2024-01-01 15:01] LABS: Add Urine Microscopic? NO; Appearance Urine Clear (Clear); Bilirubin Urine Negative (Negative); Blood Urine Negative (Negative); Color Urine Yellow (Yellow); Glucose Urine UA Negative (Negative); Ketones Urine Negative (Negative); Leukocyte Esterase Ur Negative LEU/UL (Negative); Nitrate Urine Negative (Negative); Protein Urine Negative (Negative); Specific Grav Ur 1.013 (1.001-1.035); Urobilinogen Urine 0.2 mg/dL (<2.0)
--- NOTE | 2024-01-01 15:04 | ECG_ITS ---
Test Date: 2024-01-01 15:16:24 Measurements Intervals Hardy Rate: 61 P: 35 MO: 215 QRS: -51 QRSD: 128 T: 63 QT: 423 QTc: 427 Interpretive Statements SINUS RHYTHM WITH FIRST DEGREE AV BLOCK RIGHT BUNDLE BRANCH BLOCK LEFT ANTERIOR FASCICULAR BLOCK BASELINE ARTIFACT- I, II, III ABNORMAL ECG No previous ECG available for comparison Electronically Signed On 01-01-2024 15:24:08 CDT by Lopez Conti D.O.
[2024-01-01 15:23] LABS: Erythrocyte Sedimentation Rate 23 mm/hr (0-20); Partial Thromboplastin Time 36.4 Seconds (22.3-36.8); Prothrombin Time 13.7 Seconds (11.1-14.7)
[2024-01-01 15:24] LABS: Anion Gap 10 mmol/L (4-12); Blood Urea Nitrogen 31 mg/dL (7-17); CRP < 0.5 mg/dL (<1.0); Calcium 9.4 mg/dL (8.4-10.2); Carbon Dioxide 27 mmol/L (22-30); Chloride 101 mmol/L (98-107); Estimated Glomerular Filt Rate 48; Glucose 85 mg/dL (65-110); Potassium 4.5 mmol/L (3.4-5.0); Sodium 138 mmol/L (137-145)
[2024-01-01 15:25] LABS: Basophils Percent Auto 0.5 % (0.2-1.2); Eosinophils Absolute Auto 0.2 K/mm3 (0-0.3); Eosinophils Percent Auto 2.6 % (0-4.4); Hematocrit 38.7 % (37.0-47.0); Hemoglobin 12.4 g/dL (12.0-15.0); Immature Granulocyte Absolute 0.01 K/mm3 (0.00-0.031); Immature Granulocyte Percent A 0.2 % (0-0.5); Lymphocytes Absolute Auto 1.86 K/mm3 (0.9-3.2); Mean Corpuscular Hemoglobin 32.5 pg (26-34); Mean Corpuscular Volume 101.3 fl (80-100); Mean Platelet Volume 9.9 fl (7.4-10.4); Monocytes Absolute Auto 0.6 K/mm3 (0.1-0.6); Monocytes Percent Auto 8.4 % (2.6-8.5); Neutrophils Percent Auto 60.3 % (45.5-73.1); Platelet Count Result 234 k/mm3 (150-375); Red Blood Count 3.82 M/mm3 (4.2-5.4); Red Cell Distribution Width 13.2 % (11.5-14.5); White Blood Count 6.7 K/mm3 (4.5-10.0)
== END 2024-01-01 13:56 | disposition home or self-care (01) ==
LOC: ANHIMG 14:05
PROVIDERS: PCP Family Medicine; Visit Provider Anesthesiology
DX: M43.04 Spondylolysis, thoracic region (principal); I45.10 Unspecified right bundle-branch block; R94.31 Abnormal electrocardiogram [ECG] [EKG]
CPT/HCPCS: 36415; 71046; 72128; 80048; 81003; 85025; 85610; 85652; 85730; 86140; 93005

== ENCOUNTER 2024-10-21 16:03 | Outpatient (CLI) | payer MEDICARE, SELFPAY ==
--- NOTE | ~2024-10-21 | CT_ITS ---
CT brain & sinus wo con Ordering provider: Dong Hardy MD History: 78 years Female with . H02.843 - Edema of right eye, unspecified eyelid . Comparison: None. Technique: CT of the head without contrast. The dose-length product was 674.51 mGy-cm. FINDINGS: BRAIN PARENCHYMA AND CSF SPACES: Mild leukoaraiosis and diffuse cortical atrophy. Mild atheromatous d isease. No midline shift, mass effect or hemorrhage. The brain parenchyma and CSF spaces are otherwi se normal. MASTOIDS: Well aerated. BONES: The bones appear intact. SOFT TISSUES: Visualized nasopharynx is normal. Scalp hematoma is seen in the right frontal scalp ju st above the right orbit. Otherwise, Superficial soft tissues are normal. IMPRESSION: No acute intracranial findings. CT brain & sinus wo con Ordering provider: Kalpana Hardy MD History: . H02.843 - Edema of right eye, unspecified eyelid . Comparison: None. Technique: Thin slice axial CT of the facial bones was performed without contrast. Coronal and sagit kaykay reformatted images were also obtained. . Automated exposure control and iterative reconstruction technique were employed. The dose-length product was 674.51 mGy-cm. FINDINGS: PARANASAL SINUSES: Well aerated. Mild right nasal septal deviation. BONES: No facial fracture including no nasal bone fracture. ORBITS AND SUPERFICIAL SOFT TISSUES: The optic globes and orbits are normal. Right frontal scalp fuad syed with soft tissue swelling anterior to the right orbit. Fat stranding seen in the right anterior to the right maxillary sinus and zygomatic arch Otherwise, The superficial soft tissues are normal. VISUALIZED MASTOIDS: Well aerated. 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 IMPRESSION: No facial fracture. Hematoma in the right scalp with edema anterior to the right orbit and fat stranding anterior to the right maxillary sinus and zygomatic arch. Reviewed, dictated and finalized at location A. IMPRESSION: No acute intracranial findings. CT brain & sinus wo con Ordering provider: Kalpana Hardy MD History: . H02.843 - Edema of right eye, unspecified eyelid . Comparison: None. Technique: Thin slice axial CT of the facial bones was performed without contra st. Coronal and sagittal reformatted images were also obtained. . Automated e xposure control and iterative reconstruction technique were employed. The dose- length product was 674.51 mGy-cm. FINDINGS: PARANASAL SINUSES: Well aerated. Mild right nasal septal deviation. BONES: No facial fracture including no nasal bone fracture. ORBITS AND SUPERFICIAL SOFT TISSUES: The optic globes and orbits are normal. Ri ght frontal scalp hematoma with soft tissue swelling anterior to the right orbi t. Fat stranding seen in the right anterior to the right maxillary sinus and zy gomatic arch Otherwise, The superficial soft tissues are normal. VISUALIZED MASTOIDS: Well aerated. 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 IMPRESSION: No facial fracture. Hematoma in the right scalp with edema anterior to the right orbit and fat stra nding anterior to the right maxillary sinus and zygomatic arch.
== END 2024-10-21 16:04 | disposition home or self-care (01) ==
LOC: MICIMG 16:03
PROVIDERS: PCP Family Medicine; Visit Provider Family Medicine
DX: H02.843 Edema of right eye, unspecified eyelid (principal); S00.83XA Contusion of other part of head, initial encounter; X58.XXXA Exposure to other specified factors, initial encounter; Z91.81 History of falling
CPT/HCPCS: 70450; 70486

== ENCOUNTER 2025-01-14 00:32 | Day surgery (SDC) | payer MEDICARE, SELFPAY ==
[2024-12-31 10:34] VITALS: BMI 38.7
--- OUTSIDE RECORDS SUMMARY | 2025-01-14 00:34 | XMS_ITS | Encounter Summary ---
Author Organization [facility] Healthcare Address [address] [place] [address] Care Team Providers Care Sheet Metal Worker Supervisor Name Role Phone Skinny Hardy MD Primary Care Provider Kang Blackmon MD Unavailable [phone] Skinny Hardy MD Primary Care Provider Reason for Visit * Reason Onset Date Comments Pre-Surgical Call 02/22/2021 Encounter Details Date Type Department Care Team (Late st Contact Info) Description 02/22/2021 Telephone [facility] [place] [facility] [address] [facility] Advanced Medicine [address] [place] [address] Milton Sandoval MD PhD [address] [facility] [address] [email or web address] [address] [place] [address] Pre-Surgical Call Social History Tobacco Use Types Packs/Day Years Used Date Smoking Tobacco: Former Smokeless Tobacco: Never Alcohol Use Standard Drinks/Week Comments Yes 1 (1 standard drink = 0.6 oz pur e alcohol) AUDIT-C Answer Date Recorded Q1: How often do you have a drink containing alc ohol? Monthly or less 02/26/2021 Q2: How many drinks containi ng alcohol do you have on a typical day when you are drinking? 1 or 2 02/26/2021 Q3: How often do you have si x or more drinks on one occasion? 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 Pt confirmed she is not on blood thinners. documented in this encounter Plan of Treatment Not on file documented as of this encounter Goals Goal Patient Goal Type Associated Problems Recent Progress Patient-Stated? Author CCM Chronic Pain Care Plan Chronic Care Management No change(05/17 11:00 AM MOTOR CARRIER INSPECTOR) No Desirae Pearson RN Note: Problem: Chronic Pain Goals: 1. Minimize further functional decline 2. Maximize quality of life 3. Control pain Strategies: - Activity/exercise program recommendation - Conservative stepwise pain medicine strategy with multi-disciplinary approach - Recommend healthy lifestyle strategies and compensatory methods as needed documented as of this encounter Visit Diagnoses Not on filedocumented in this encounter Care Teams Sheet Metal Worker Supervisor Relationship Specialty Start Date End Date Skinny Hardy MD PCP - General Family Practice 12/08/17 06/24/23 Skinny Hardy MD [address] [place] [address] [place] [address] PCP - General Family Practice 06/25/23 Kang Blackmon MD [address] [place] [address] Surgeon Anesthesiology 01/14/20 documented as of this encounter
--- OUTSIDE RECORDS SUMMARY | 2025-01-14 00:34 | XMS_ITS | Encounter Summary ---
Author Organization [facility] Healthcare Address [address] [place] [address] Care Team Providers Care Mixer Operator Vacuum Pan Salt Name Role Phone Skinny Hardy MD Primary Care Provider Kang Blackmon MD Unavailable [phone] Skinny Hardy MD Primary Care Provider Reason for Visit * Reason Onset Date Comments Refill of medication 04/16/2021 [place] Encounter Details Date Type Department Care Team (Late st Contact Info) Description 04/16/2021 Telephone [facility] at the [place] [facility] [address] [facility] Advanced Medicine [address] [place] [address] Milton Sandoval MD PhD [address] [facility] [address] [place] [address] Refill of medication ([place]) Social History Tobacco Use Types Packs/Day Years Used Date Smoking Tobacco: Former Smokeless Tobacco: Never Alcohol Use Standard Drinks/Week Comments Yes 1 (1 standard drink = 0.6 oz pur e alcohol) AUDIT-C Answer Date Recorded Q1: How often do you have a drink containing alc ohol? Monthly or less 03/12/2021 Q2: How many drinks containi ng alcohol do you have on a typical day when you are drinking? 1 or 2 03/12/2021 Q3: How often do you have si x or more drinks on one occasion? Never 03/12/2021 Comments No Sex and Gender Information Value Date Recorded Sex Assigned at Not on file Legal Sex Female 12:59 PM ARRANGING FUNERAL DIRECTOR Gender Identity Female 04/26/2021 1:43 PM ARRANGING FUNERAL DIRECTOR Sexual Orientation Straight 04/26/2021 1: 43 PM ARRANGING FUNERAL DIRECTOR documented as of this encounter Plan of Treatment Not on file documented as of this encounter Goals Goal Patient Goal Type Associated Problems Recent Progress Patient-Stated? Author CCM Chronic Pain Care Plan Chronic Care Management No change(05/17 11:00 AM ARRANGING FUNERAL DIRECTOR) No Desirae Pearson RN Note: Problem: Chronic Pain Goals: 1. Minimize further functional decline 2. Maximize quality of life 3. Control pain Strategies: - Activity/exercise program recommendation - Conservative stepwise pain medicine strategy with multi-disciplinary approach - Recommend healthy lifestyle strategies and compensatory methods as needed documented as of this encounter Visit Diagnoses Not on filedocumented in this encounter Care Teams Mixer Operator Vacuum Pan Salt Relationship Specialty Start Date End Date Skinny Hardy MD PCP - General Family Practice 12/08/17 06/24/23 Skinny Hardy MD [address] [place] [address] [place] [address] PCP - General Family Practice 06/25/23 Kang Blackmon MD [address] [place] [address] Surgeon Anesthesiology 01/14/20 documented as of this encounter
--- OUTSIDE RECORDS SUMMARY | 2025-01-14 00:34 | XMS_ITS | Encounter Summary ---
Author Organization [facility] Healthcare Address [address] [place] [address] Care Team Providers Care Legal Administrator Name Role Phone Skinny Hardy MD Primary Care Provider Kang Blackmon MD Unavailable [phone] Skinny Hardy MD Primary Care Provider Reason for Visit * Reason Onset Date Comments Medications and PT 03/26/2021 Encounter Details Date Type Department Care Team (Late st Contact Info) Description 03/26/2021 Telephone [facility] Center at the [place] [facility] [address] [facility] Advanced Medicine [address] [place] [address] Milton Sandoval MD PhD [address] [facility] [address] [facility] [address] [place] [address] Medications and PT Social History Tobacco Use Types Packs/Day Years [...] on file Legal Sex Female 12:59 PM SOLUTIONS EXECUTIVE SECURITY Gender Identity Female 04/26/2021 1:43 PM SOLUTIONS EXECUTIVE SECURITY Sexual Orientation Straight 04/26/2021 1: 43 PM SOLUTIONS EXECUTIVE SECURITY documented as of this encounter Miscellaneous Notes * Telephone Encounter - Anderas Knowles RN - 03/26/2021 2:24 PM SOLUTIONS EXECUTIVE SECURITY Current Annotated Refill Date: 03.26.2021 Next Refill Date: 04.25.2021 Last Visit: 03.12.2021 Next Visit: n/a ?? Chronic Opioid Therapy (03/12/2021): Current analgesics: 10/325 mg percocet q6hr PRN Daily dose (MME): 40 mg Benzodiazepines: none Other Considerations: She takes the medication sparingly 2-3 times per day Plan: I encourage her to continue to wean as much as possible Urine drug screen running history: consistent and continue with therapy Pt would also like an external PT order for [facility] physical therapy in [place]. TIONS EXECUTIVE SECURITY * Telephone Encounter - Selene Martins - 03/26/2021 2:11 PM CST Patient needs refill of Hydrocodone. Patient also states that [facility] did not receive script for Amitriptyline. Please resend. Also patient wants outside referral for outside PT at [facility] Physical [facility] in [place]. TIONS EXECUTIVE SECURITY documented in this encounter Plan of Treatment Not on file documented as of this encounter Goals Goal Patient Goal Type Associated Problems Recent Progress Patient-Stated? Author CCM Chronic Pain Care Plan Chronic Care Management No change(05/17 11:00 AM SOLUTIONS EXECUTIVE SECURITY) No Desirae Pearson RN Note: Problem: Chronic Pain Goals: 1. Minimize further functional decline 2. Maximize quality of life 3. Control pain Strategies: - Activity/exercise program recommendation - Conservative stepwise pain medicine strategy with multi-disciplinary approach - Recommend healthy lifestyle strategies and compensatory methods as needed documented as of this encounter Visit Diagnoses Not on filedocumented in this encounter Care Teams Legal Administrator Relationship Specialty Start Date End Date Skinny Hardy MD PCP - General Family Practice 12/08/17 06/24/23 Skinny Hardy MD [address] [place] [address] [place] [address] PCP - General Family Practice 06/25/23 Kang Blackmon MD [address] [place] [address] Surgeon Anesthesiology 01/14/20 documented as of this encounter
--- OUTSIDE RECORDS SUMMARY | 2025-01-14 00:34 | XMS_ITS | Encounter Summary ---
Author Organization [facility] Healthcare Address [address] [place] [address] Care Team Providers Care Tube Former Operator Name Role Phone Skinny Hardy MD Primary Care Provider Kang Blackmon MD Unavailable [phone] Skinny Hardy MD Primary Care Provider Reason for Visit * Reason Onset Date Comments pre procedure call 03/08/2021 Encounter Details Date Type Department Care Team (Late st Contact Info) Description 03/08/2021 Telephone [facility] at the [place] for [facility] Medicine [address] [facility] Advanced Medicine [address] [place], [place] [id number] Milton Sandoval MD PhD [address] [facility] 61 [facility] [address] [place] [address] pre procedure call Social History Tobacco Use Types Packs/Day Years [...] on file Legal Sex Female 12:59 PM SUPERVISOR RESEARCH SHOP Gender Identity Female 04/26/2021 1:43 PM SUPERVISOR RESEARCH SHOP Sexual Orientation Straight 04/26/2021 1: 43 PM SUPERVISOR RESEARCH SHOP documented as of this encounter Plan of Treatment Not on file documented as of this encounter Goals Goal Patient Goal Type Associated Problems Recent Progress Patient-Stated? Author CCM Chronic Pain Care Plan Chronic Care Management No change(05/17 11:00 AM SUPERVISOR RESEARCH SHOP) No Desirae Pearson RN Note: Problem: Chronic Pain Goals: 1. Minimize further functional decline 2. Maximize quality of life 3. Control pain Strategies: - Activity/exercise program recommendation - Conservative stepwise pain medicine strategy with multi-disciplinary approach - Recommend healthy lifestyle strategies and compensatory methods as needed documented as of this encounter Visit Diagnoses Not on filedocumented in this encounter Care Teams Tube Former Operator Relationship Specialty Start Date End Date Skinny Hardy MD PCP - General Family Practice 12/08/17 06/24/23 Skinny Hardy MD [address] [facility] [place] [address] PCP - General Family Practice 06/25/23 Kang Blackmon MD [address] [place] [address] Surgeon Anesthesiology 01/14/20 documented as of this encounter
--- OUTSIDE RECORDS SUMMARY | 2025-01-14 00:35 | XMS_ITS | Encounter Summary ---
Author Organization [facility] Healthcare Address [address] [place] [address] Care Team Providers Care Marketing Community Liaison Name Role Phone Skinny Hardy MD Primary Care Provider Kang Blackmon MD Unavailable [phone] Skinny Hardy MD Primary Care Provider Encounter Details Date Type Department Care Team (Late st Contact Info) Description 11/11/2022 Telephone [facility] Pain Center at the [place] for Advanced Medicine [address] [facility] Advanced Medicine [address] [place], [place] [id number] Milton Sandoval MD PhD [address] [place] [address] Social History Tobacco Use Types Packs/Day Years Used Date Smoking Tobacco: Former Cigarettes 0.5 1 Smokeless Tobacco: Never Comments:Smoke for one year at age [age] years old Alcohol Use Standard Drinks/Week Comments Yes 1 (1 standard drink = 0.6 oz pur e alcohol) AUDIT-C Answer Date Recorded Q1: How often do you have a drink containing alc ohol? Monthly or less 09/25/2022 Q2: How many drinks containi ng alcohol do you have on a typical day when you are drinking? 1 or 2 09/25/2022 Q3: How often do you have si x or more drinks on one occasion? Never 09/25/2022 Comments No Sex and Gender Information Value Date Recorded Sex Assigned at Not on file Legal Sex Female 12:59 PM AIR BATTLE MANAGER Gender Identity Female 04/26/2021 1:43 PM AIR BATTLE MANAGER Sexual Orientation Straight 04/26/2021 1: 43 PM AIR BATTLE MANAGER documented as of this encounter Plan of Treatment Not on file documented as of this encounter Goals Goal Patient Goal Type Associated Problems Recent Progress Patient-Stated? Author CCM Chronic Pain Care Plan Chronic Care Management No change(05/17 11:00 AM AIR BATTLE MANAGER) No Desirae Pearson RN Note: Problem: Chronic Pain Goals: 1. Minimize further functional decline 2. Maximize quality of life 3. Control pain Strategies: - Activity/exercise program recommendation - Conservative stepwise pain medicine strategy with multi-disciplinary approach - Recommend healthy lifestyle strategies and compensatory methods as needed documented as of this encounter Visit Diagnoses Not on filedocumented in this encounter Care Teams Marketing Community Liaison Relationship Specialty Start Date End Date Skinny Hardy MD PCP - General Family Practice 12/08/17 06/24/23 Skinny Hardy MD [address] [facility] [place] [address] PCP - General Family Practice 06/25/23 Kang Blackmon MD [address] [place] [id number] Surgeon Anesthesiology 01/14/20 documented as of this encounter
--- OUTSIDE RECORDS SUMMARY | 2025-01-14 00:35 | XMS_ITS | Encounter Summary ---
Author Organization [facility] Healthcare Address [address] [place] [address] Care Team Providers Care Tire Fixer Name Role Phone Skinny Hardy MD Primary Care Provider Kang Blackmon MD Unavailable [phone] Skinny Hardy MD Primary Care Provider Reason for Visit * Reason Onset Date Comments Med Refill 10/04/2021 Encounter Details Date Type Department Care Team (Late st Contact Info) Description 10/04/2021 Telephone [facility] Pain Center at the [place] for Advanced Medicine [address] [facility] Advanced Medicine [address] [place] [address] Milton Sandoval MD PhD [address] [facility] [address] [facility] [address] [place] [address] Med Refill Social History Tobacco Use Types Packs/Day Years Used Date Smoking Tobacco: Former Cigarettes Smokeless Tobacco: Never Alcohol Use Standard Drinks/Week Comments Yes 1 (1 standard drink = 0.6 oz pur e alcohol) AUDIT-C Answer Date Recorded Q1: How often do you have a drink containing alc ohol? Monthly or less 08/31/2021 Q2: How many drinks containi ng alcohol do you have on a typical day when you are drinking? 1 or 2 08/31/2021 Q3: How often do you have si x or more drinks on one occasion? Never 08/31/2021 Comments No Sex and Gender Information Value Date Recorded Sex Assigned at Not on file Legal Sex Female 12:59 PM PRINT BINDING AND FINISHING WORKER Gender Identity Female 04/26/2021 1:43 PM PRINT BINDING AND FINISHING WORKER Sexual Orientation Straight 04/26/2021 1: 43 PM PRINT BINDING AND FINISHING WORKER documented as of this encounter Plan of Treatment Not on file documented as of this encounter Goals Goal Patient Goal Type Associated Problems Recent Progress Patient-Stated? Author CCM Chronic Pain Care Plan Chronic Care Management No change(05/17 11:00 AM PRINT BINDING AND FINISHING WORKER) No Desirae Pearson RN Note: Problem: Chronic Pain Goals: 1. Minimize further functional decline 2. Maximize quality of life 3. Control pain Strategies: - Activity/exercise program recommendation - Conservative stepwise pain medicine strategy with multi-disciplinary approach - Recommend healthy lifestyle strategies and compensatory methods as needed documented as of this encounter Visit Diagnoses Not on filedocumented in this encounter Care Teams Tire Fixer Relationship Specialty Start Date End Date Skinny Hardy MD PCP - General Family Practice 12/08/17 06/24/23 Skinny Hardy MD [address] [facility] [place] [address] PCP - General Family Practice 06/25/23 Kang Blackmon MD [address] [place] [address] Surgeon Anesthesiology 01/14/20 documented as of this encounter
--- OUTSIDE RECORDS SUMMARY | 2025-01-14 00:35 | XMS_ITS | Encounter Summary ---
Author Organization [facility] Healthcare Address [address] [place] [address] Care Team Providers Care Rose Grading Supervisor Name Role Phone Skinny Hardy MD Primary Care Provider Kang Blackmon MD Unavailable [phone] Skinny Hardy MD Primary Care Provider Encounter Details Date Type Department Care Team (Late st Contact Info) Description 09/26/2020 Telephone [facility] at the [place] for Advanced Medicine [address] [facility] Advanced Medicine [address] [place], [place] [id number] Milton Sandoval MD PhD [address] [facility] 61 [facility] [address] [place] [address] Social History Tobacco Use Types Packs/Day Years Used Date Smoking Tobacco: Former Smokeless Tobacco: Never Alcohol Use Standard Drinks/Week Comments Yes 1 (1 standard drink = 0.6 oz pur e alcohol) AUDIT-C Answer Date Recorded Q1: How often do you have a drink containing alc ohol? Never 09/12/2020 Q2: How many drinks containi ng alcohol do you have on a typical day when you are drinking? 1 or 2 09/12/2020 Q3: How often do you have six or more drinks on one occasion? Never 09/12/2020 Comments No Sex and Gender Information Value Date Recorded Sex Assigned at Not on file Legal Sex Female 12:59 PM FILLETER Gender Identity Female 04/26/2021 1:43 PM FILLETER Sexual Orientation Straight 04/26/2021 1: 43 PM FILLETER documented as of this encounter Plan of Treatment Not on file documented as of this encounter Goals Goal Patient Goal Type Associated Problems Recent Progress Patient-Stated? Author CCM Chronic Pain Care Plan Chronic Care Management No change(05/17 11:00 AM FILLETER) Desirae Silverman RN Note: Problem: Chronic Pain Goals: 1. Minimize further functional decline 2. Maximize quality of life 3. Control pain Strategies: - Activity/exercise program recommendation - Conservative stepwise pain medicine strategy with multi-disciplinary approach - Recommend healthy lifestyle strategies and compensatory methods as needed documented as of this encounter Visit Diagnoses Not on filedocumented in this encounter Care Teams Rose Grading Supervisor Relationship Specialty Start Date End Date Skinny Hardy MD PCP - General Family Practice 12/08/17 06/24/23 Skinny Hardy MD [address] [place] [address] [place] [address] PCP - General Family Practice 06/25/23 Kang Blackmon MD [address] [place] [address] Surgeon Anesthesiology 01/14/20 documented as of this encounter
--- OUTSIDE RECORDS SUMMARY | 2025-01-14 00:35 | XMS_ITS | Clinical Summary ---
Author Organization [facility] Address [address] [address] Phone Care Team Providers Care Employee Development Specialist Name Role Phone Skinny Hardy MD Primary Care Provider Allergies Active Allergy Reactions Criticality Noted Date Comments Penicillins Other (see Comments) 10/27/[address] Medications lisinopril-hydr oCHLOROthiazide (PRINZIDE, ZESTORETIC) 20-12.5 MG Tablet Take 1 Tab by mouth daily. Active DULoxetine HCl (CYMBALTA PO) Take 90 mg by mouth daily after breakfast. Active ROPINIROLE HCL PO Take by mouth. Active HYDROcodone-graciela taminophen (NORCO) 10-325 MG Tablet Take 1 Tab by mouth every 6 hours as needed. Active TRAMADOL HCL PO Take by mouth. Active MELOXICAM PO Take by mouth. Active Ascorbic Acid (VITAMIN C PO) Take by mouth. Active B Complex Vitamins (VITAMIN B COMPLEX PO) Take by mouth. Active FOLIC ACID PO Take by mouth. Active IRON PO Take by mouth. Active omeprazole (PriLOSEC) 40 MG CAPSULE DELAYED RELEASE TAKE 1 CAPSULE BY MOUTH EVERY DAY 90 Cap 3 03/07/2020 Active Social History Tobacco Use Types Packs/Day Years Used Date Smoking Tobacco: Former Cigarettes 0.5 2 Smokeless Tobacco: Never Comments:quit 50 years Alcohol Use Standard Drinks/Week Comments Yes 0 (1 standard drink = 0.6 oz pur e alcohol) AUDIT-C Answer Date Recorded Frequency of Alcohol Consumption Monthly or less 10/27/2018 Average Number of Drinks Not on file 019 Frequency of Binge Drinking Not on file 05/2018 Comments Unknown Sex and Gender Information Value Date Recorded Sex Assigned at Not on file Legal Sex Female 1:58 PM CDT Gender Identity Not on file Sexual Orientation Not on file Last Filed Vital Signs Vital Sign Reading Time Taken Comments Blood Pressure 128/78 10/27/2018 3:28 PM CDT Pulse 72 10/27/2018 3:28 PM CDT Temperature - - Respiratory Rate - - Oxygen Saturation 98% 10/27/2018 3:28 PM CDT Inhaled Oxygen Concentration - - Weight 115 kg (253 lb 9.6 oz) 10/27/2018 3:28 PM CDT Height - - Body Mass Index - - Plan of Treatment Health Maintenance Due Date Last Done Comments Hepatitis C Virus (HCV) Screening 1945 TdaP Immunization 1945 Pneumococcal Immunization (5 0+ years) (1 of 1 - PCV) 12/17/1995 Zoster Immunization (1 of 2) 12/17/1995 Respiratory Syncytial Virus (RSV) Immunization (Adult) (1 - 1-dose 75+ series) 2020 SARS-COV-2 Immunization ( - season) 2023 04/17/2021, 07/27/2020, 07/06/2020 Influenza Immunization (#1) 2024 Colonoscopy Discontinued 12/09/2018, 11/05/2018 Colorectal Cancer Screening Discontinued Cologuard Discontinued Hepatitis B Immunization Aged Out No longer eligible based on patient's age to complete this topic Human Papillomavirus (HPV) Immunization Aged Out No longer eligible based on patient's age to complete this topic Immunochemical Fecal Occult Blood Discontinued Meningococcal Immunization (ACWY) Aged Out No longer eligible based on patient's age to complete this topic Rotavirus Immunization Aged Out No lo nger eligible based on patient's age to complete this topic Procedures Procedure Name Priority Date/Time Associated Diagnosis Comments COLONOSCOPY Routine 12/09/2018 from Last 3 Months or Most Recently Relevant to Health Maintenance Results * COLONOSCOPY (12/09/2018) us Deangelo T Kllawrence DO PROCEDURE/MINOR SURGICAL ORDERA BLES Final Result from Last 3 Months or Most Recently Relevant to Health Maintenance Care Teams Employee Development Specialist Relationship Specialty Start Date End Date Skinny Hardy MD PCP - General Family Medicine 10/26/18
--- OUTSIDE RECORDS SUMMARY | 2025-01-14 00:35 | XMS_ITS | Clinical Summary ---
Author Organization [facility] Address [address] [place] [address] Phone Care Team Providers Care Steeple Jack Name Role Phone Kang Blackmon MD Unavailable [phone] Skinny Hardy MD Primary Care Provider Allergies Active Allergy Reactions Criticality Noted Date Comments Penicillins Anaphylaxis High PCN allergy form filled out Sulfa (Sulfonamide Antibiotics) Anaphylaxis High Medications ascorbic acid (VITAMIN C) 500 mg tablet,chewable Indications:sup plement Take 1 tablet/chew tab (500 mg total) by mouth every morning Active calcium carbonate-vitam in D3 (CALTRATE 600 + D) 1500 mg (600 mg elemental) -400 units per tabletIndicatio ns:Prevention of Vitamin D Deficiency Take 1 tablet by mouth every morning Active multivitamin capsuleIndicati ons:Vitamin Deficiency Prevention Take 1 capsule by mouth every morning Active DULoxetine DR (CYMBALTA) 60 mg capsuleIndicati ons:Anxiety with Depression Take 1 capsule (60 mg total) by mouth 2 (two) times a day 8 Active rOPINIRole (REQUIP) 1 mg tabletIndicatio ns:Restless Legs Syndrome Take 2 tablets (2 mg total) by mouth 2 (two) times a day 1 Active nitroglycerin (NITROSTAT) 0.[address] 1 tablet (0.3 mg total) under the tongue every 5 (five) minutes as needed 2 Active ferrous sulfate 325 mg (65 mg of elemental iron) tabletIndicatio ns:Iron Deficiency Anemia Take 1 tablet (325 mg total) by mouth daily as needed Active atorvastatin (LIPITOR) 80 mg tablet 80 MG ORALLY EVERY DAY AT BEDTIME 2 Active topiramate (TOPAMAX) 50 mg tablet TAKE 1/2 TABLET BY MOUTH NIGHTLY 45 tablet 7 3 Active Additional Information Patient not taking.Informant: Self, Reported on 02/25/2024 collagen, hydrolysate, bovine, (collagen, hydr, bovine,, bulk,) 100 % powderIndicatio ns:supplement Take 1 Scoop by mouth surveying technician before breakfast Active acetaminophen 500 mg capsuleIndicati ons:Pain Take 2 capsules (1,000 mg total) by mouth every 6 (six) hours 90 tablet 4 Active furosemide (LASIX) 20 mg tablet TAKE 1 TABLET BY MOUTH TWICE A DAY 180 tablet 4 Active Additional Information Patient taking differently:20 mg oralAs needed, Reported on 02/25/2024 aspirin 81 mg enteric coated tablet Take 1 tablet (81 mg total) by mouth daily Active empagliflozin (JARDIANCE) 10 mg tablet Take 1 tablet (10 mg total) by mouth daily 30 tablet 11 4 Active Entresto 24-26 mg tablet TAKE 1 TABLET BY MOUTH TWICE A DAY 60 tablet 11 5 Active metoprolol XL (TOPROL-XL) 25 mg extended release tablet Take 0.5 tablets (12.5 mg total) by mouth daily 45 tablet 3 5 Active Active Problems Problem Noted Date Diagnosed Date Localized edema 08/01/2023 History of cardiomyopathy 08/01/2023 Right rotator cuff tear arthropathy 07/09/2023 Preoperative cardiovascular examination 05/20/19 24 Rotator cuff tear arthropathy of right shoulder 05/08/2023 Suprascapular mononeuropathy, right 09/25/2022 Chronic pain of both knees 07/23/2022 Shoulder arthritis 06/18/2022 Cluneal neuropathy 05/04/2022 Cardiomyopathy, ischemic 11/01/2021 Chronic heart failure with preserved ejection fr action 11/01/2021 Coronary artery disease invo lving [place] coronary artery of [place] heart without angina pectoris 11/01/2021 S/P coronary artery stent placement 11/01/2021 Exertional angina 09/28/2021 Abnormal stress test 09/28/2021 Mixed hyperlipidemia 09/28/2021 Abnormal ECG 09/28/2021 Morbid (severe) obesity due to excess calories 0 09/28/2021 Chronic midline thoracic back pain 05/12/2021 Chronic right shoulder pain 05/12/2021 DDD (degenerative disc disease), lumbar 09/19/19 Chronic bilateral low back pain 09/12/2020 Hip pain 08/28/2020 Facet arthropathy, lumbosacral 08/28/2020 Spondylosis of lumbar region without myelopathy or radiculopathy 07/11/2020 Lumbar radiculopathy 07/11/2020 Sacroiliitis 07/11/2020 Chronic use of opiate for therapeutic purpose Spinal stenosis of lumbar re gion with neurogenic claudication 11/30/2019 Overview (11/30/2019): Added automatically from request for surgery [id number] Encounter for examination fo r normal comparison or control in clinical research program 11/30/2019 Overview (11/30/2019): Added automatically from request for surgery [id number] Posterior vitreous detachment, left eye 09/24/19 18 Pseudophakia of both eyes 07/02/2017 Resolved Problems Problem Noted Date Diagnosed Date Resolved Date Hypotension due to drugs 01/24/2022 Age-related nuclear cataract of left eye 09/26/2017 10/23/2017 Overview (09/26/2017): Added automatically from request for surgery [id number] Encounters Date Type Department Care Team Description 11/19/2024 Telephone [facility] [address] [place] [address] Tre Reid MD from Last 3 Months Immunizations Immunization Administration Dates Next Due Influenza, Quad, Adjuvantated, Intramuscular 09/2019 Influenza, Trivalent, High D ose, Split, Preservative Free, Intramuscular 03/23/2019 Pneumococcal Conjugate PCV 13 03/23/2019 Surgical History Surgery Date Site/Laterality Comments TONSILLECTOMY PAROTIDECTOMY 04/28/2005 - 04/27/2006 CATARACT EXTRACTION 04/28/2017 - 04/27/2018 Left CATARACT EXTRACTION INTRAOCULAR LENS INSERTION COLONOSCOPY last 2019 ESOPHAGOGASTRODUODENOSCOPY 2021 BALLOON ANGIOPLASTY, ARTERY Left Medical History Medical History Date Comments HTN (hypertension) Morbid obesity (HCC) Chronic pain Sciatica DDD (degenerative disc disease), lumbar Lumbar spinal stenosis Peripheral neuropathy Hyperlipidemia Depression RLS (restless legs syndrome) Asthma Rectal bleeding Low back pain Low back pain Buttock pain Extremity pain SOB (shortness of breath) Throat tightness Abnormal stress test Acute ische stacy changes on lexiscan stress test Urinary incontinence Chronic kidney disease Pre-diabetes Shoulder pain, right Shoulder pain, right Coccyx pain Low back pain Right shoulder pain Left knee pain Bilateral foot pain Right shoulder pain Bilateral knee pain Coccyx pain Right arm pain Bilateral buttock pain Family History Medical History Relation Name Comments Heart attack Maternal Grandfather Heart disease Maternal Grandfather Heart attack Mother Heart disease Mother Heart disease Son Anesthesia problems Neg Hx Relation Name Status Comments Father Maternal Grandfather Mother Son Alive Social History Tobacco Use Types Packs/Day Years Used Date Smoking Tobacco: Former Cigarettes 0.5 1 Smokeless Tobacco: Never Tobacco Cessation:Counseling Given: Not Answered Comments:Smoke for one year at age [age] years old Alcohol Use Standard Drinks/Week Comments Yes 1 (1 standard drink = 0.6 oz pur e alcohol) AUDIT-C Answer Date Recorded Q1: How often do you have a drink containing alc ohol? Monthly or less 07/09/2023 Q2: How many drinks containi ng alcohol do you have on a typical day when you are drinking? 1 or 2 07/09/2023 Q3: How often do you have si x or more drinks on one occasion? Never 07/09/2023 Personal Safety Answer Date Recorded Have you ever been in or are you currently in a harmful physical or emotional relationship or is someone making you feel afraid or unsafe? Denies 07/09/2023 Comments No Sex and Gender Information Value Date Recorded Sex Assigned at Not on file Legal Sex Female 12:59 PM WELFARE ELIGIBILITY INTERVIEWER Gender Identity Female 04/26/2021 1:43 PM WELFARE ELIGIBILITY INTERVIEWER Sexual Orientation Straight 04/26/2021 1: 43 PM WELFARE ELIGIBILITY INTERVIEWER Obstetrics History Last Filed Vital Signs Vital Sign Reading Time Taken Comments Blood Pressure 122/80 02/25/2024 2:13 PM CDT Pulse 62 02/25/2024 2:13 PM CDT Temperature 36.5 C (97.7 F) 07/10/2023 8:10 AM CDT Respiratory Rate 16 08/01/2023 11:26 AM CDT Oxygen Saturation 97% 02/25/2024 2:13 PM CDT Inhaled Oxygen Concentration - - Weight 95.3 kg (210 lb) 02/25/2024 2:13 PM CDT Height 157.5 cm (5' 2) 02/25/2024 2:13 PM CDT Body Mass Index 38.41 02/25/2024 2:13 PM CDT Plan of Treatment Health Maintenance Due Date Last Done Comments Depression Screening 1945 Hepatitis C Screening 1945 Osteoporosis Screening-Bone Density Scan 1945 DTaP/Tdap/Td Vaccine (1 - Tdap) 1956 Hepatitis B Screening 12/17/1963 Well Visit 65+ 2010 Zoster Vaccine (2 of 2) 04/16/2023 02/19/2023 Fall Risk Assessment 07/09/2024 07/10/2023 Covid-19 Vaccine (4 - 2024-2 6 season) 2024 04/17/2021, 07/27/2020, 07/06/2020 Influenza Vaccine (#1) 2024 , 04/12/2020, 01/02/2020, Additional history exists Pneumococcal vaccine 65+ Completed 04/12/2020, 02/27 Goals Goal Patient Goal Type Associated Problems Recent Progress Patient-Stated? Author CCM Chronic Pain Care Plan Chronic Care Management No change(05/17 11:00 AM WELFARE ELIGIBILITY INTERVIEWER) No Desirae Pearson, JAMAL Note: Problem: Chronic Pain Goals: 1. Minimize further functional decline 2. Maximize quality of life 3. Control pain Strategies: - Activity/exercise program recommendation - Conservative stepwise pain medicine strategy with multi-disciplinary approach - Recommend healthy lifestyle strategies and compensatory methods as needed Medical Devices Implanted Type Area Director [employer] Device Identifier Shelf Expiration Date Model / Serial / Lot Deangelo Surgical Acrysof Iq Natural Stableforce Acrysert 6mm 13mm 1 Piece Foldable - [id number] - [id number] Implanted:Qty: 1 on 10/06/2017 by Maciel Alvarez MD at [facility] Right: Eye [employer] 06/25/2022 [id number] 0 5 / [id number] / [employer] Resolute Crawford 3.5mm 2.1-2.7fr 26mm 140cm Rapid Exchange [id number] - [id number] Implanted:Qty: 1 on 10/19/2021 by Tre Reid MD at [facility] [employer] 05/29/2024 MARTY [id number] / / [id number] [employer] Resolute Crawford 4mm 2.1-2.7fr 12mm 140cm Rapid Exchange Radiopaque [id number] - [id number] Implanted:Qty: 1 on 10/19/2021 by Tre Reid MD at [facility] [employer] 11/08/2023 MARTY [id number] / / [id number] Access Closure Inc Mynx Control 6-7fr 2 Mode Balloon Catheter Sealant Lock Syringe [id number] - [id number] Implanted:Qty: 1 on 09/06/2022 by Tre Reid MD at [facility] [employer] 02/26/2024 [id number] / / [id number] Dial[employer] Aequalis 4.5mm 38mm Lock Multidirectional Self Tap Shoulder Screw Latex Free [id number] - [id number] Implanted:Qty: 1 on 07/09/2023 by Enrique Russell MD at [facility] Right: Shoulder [employer] [id number] / / [employer] Insert Perform 10 Deg Ret [id number] - [id number] - [id number] Implanted:Qty: 1 on 07/09/2023 by Enrique Russell MD at [facility] Right: Shoulder [employer] 07/12/2027 [id number] / [id number] / [employer] Stem Perform Sz 2 Plus Humeral Long Dwx2pl - [id number] - [id number] Implanted:Qty: 1 on 07/09/2023 by Enrique Russell MD at [facility] Right: Shoulder [employer] [id number] / [id number] / [employer] Aequalis 25mm Shoulder Long Post Baseplate Glenoid Morejon [id number] - [id number] - [id number] Implanted:Qty: 1 on 07/09/2023 by Enrique Russell MD at [facility] Right: Shoulder [employer] 11/07/2027 [id number] / [id number] / [employer] Aequalis 36mm Reverse Center Shoulder Sphere Glenoid Cocr 25mm [id number] - [id number] - [id number] Implanted:Qty: 1 on 07/09/2023 by Enrique Russell MD at [facility] Right: Shoulder [employer] 08/16/2026 [id number] / [id number] / [employer] Aequalis Reversed 4.5mm 23mm Compression Glenoid Screw Baseplate [id number] - [id number] Implanted:Qty: 1 on 07/09/2023 by Enrique Russell MD at [facility] Right: Shoulder [employer] [id number] / / [employer] Aequalis Reversed 4.5mm 38mm Compression Glenoid Screw Baseplate [id number] - [id number] Implanted:Qty: 1 on 07/09/2023 by Enrique Russell MD at [facility] Right: Shoulder [employer] [id number] / / [employer] Aequalis 4.5mm 35mm Lock Multidirectional Self Tap Shoulder Screw Latex Free [id number] - [id number] Implanted:Qty: 1 on 07/09/2023 by Enrique Russell MD at [facility] Right: Shoulder [employer] [id number] / / Insurance J CARLOS [facility]TRA [facility] Advance Directives For more information, please contact: [phone] * Full Code (Latest Code Status on File) Date Activated Date Inactivated Comments 07/09/2023 1:19 PM 07/10/2023 6:33 PM * Full Code Date Activated Date Inactivated Comments 09/25/2017 2:43 PM 10/06/2017 7:09 AM Care Teams Steeple Jack Relationship Specialty Start Date End Date Skinny Hardy MD [address] [place] [address] PCP - General Family Practice 06/25/23 Kang Blackmon MD [address] [place] [address] Surgeon Anesthesiology 01/14/20
[2025-01-14 11:18] VITALS: BP 127/84; PULSE 56; RESP 18; TEMP 36.3; O2SAT 100
--- NOTE | 2025-01-14 11:19 | WPDANESEPPF ---
Anes - Initial Pre Proc Eval Procedure: Operation Date: 01/11/25 02:30 Proposed Procedures p Screening Colonoscopy - Fabrice Napier MD Operation Date: 01/14/25 12:30 Proposed Procedures p Screening Colonoscopy - Fabrice Napier MD Date/Time: 01/14/25 11:19 Surgeon: Fabrice Napier MD Pre Op Diagnosis: Personal history of colon polyps, unspecified Patient Data Age: 79 Gender: F Height: 1.55 m Weight: 93 kg Allergies Allergy/AdvReac Type Severity Reaction Status Date / Time Penicillins Allergy Unknown AIRWAY Verified 01/14/25 11:17 CLOSES Sulfa (Sulfonamide Allergy Unknown UNKNOWN Verified 01/14/25 11:17 Antibiotics) Home Medications ?Medication ?Instructions ?Recorded ?Confirmed ?Type multivitamin with minerals-folic 1 tablet PO DAILY 08/21/21 01/14/25 History acid 120 mcg chewable tablet (Centrum Adult 50 Plus Fresh-Fruity) aspirin 81 mg tablet 81 mg PO DAILY 12/25/21 01/14/25 History metoprolol succinate 25 mg 12.5 mg PO DAILY 12/26/21 01/14/25 History tablet,extended release 24 hr sacubitril 24 mg-valsartan 26 mg 1 tablet PO BID 12/26/21 01/14/25 History tablet (Entresto) Neuropaquell 800 mg PO DAILY 04/02/22 01/14/25 History ropinirole 1 mg tablet 2 mg (2 x 1 mg) PO BID PRN Pain 08/05/24 12/31/24 Rx #360 tabs acetaminophen 500 mg tablet 1,000 mg PO TID PRN Pain 11/01/24 12/31/24 History atorvastatin 80 mg tablet 80 mg PO QHS 11/01/24 01/14/25 History empagliflozin 10 mg tablet 10 mg PO DAILY 11/01/24 01/14/25 History (Jardiance) meloxicam 15 mg tablet 15 mg PO DAILY #90 tabs 11/01/24 01/14/25 Rx omeprazole 20 mg capsule,delayed 20 mg PO DAILY #90 caps 11/01/24 01/14/25 Rx release duloxetine 60 mg capsule,delayed 60 mg PO BID #180 caps 11/02/24 01/14/25 Rx release Compression Wrap and Lymphedema #1 ea 12/14/24 12/31/24 Rx pump Patient hx anesthesia problems: none Family hx anesthesia problems: none Results Review: All pre-operative results and documents have been reviewed as part of the pre-operative evaluation. [facility] Past Medical History Medical History Chronic venous insufficiency of lower extremity Heart failure with preserved ejection fraction Chronic right hip pain Chronic pain of left knee Tricompartment osteoarthritis of left knee Lymphedema of both lower extremities CAD in [place] artery CKD (chronic kidney disease) stage 3, GFR 30-59 ml/min GERD (gastroesophageal reflux disease) Hx of adenomatous colonic polyps RLS (restless legs syndrome) Duodenal ulcer (~11/2018) Chronic low back pain with left-sided sciatica Idiopathic peripheral neuropathy Essential (primary) hypertension Dyslipidemia Pre-diabetes Depression Sciatica Neuropathy Surgical History Surgical History S/P insertion of spinal cord stimulator (~2023) History of right shoulder replacement (~06/2023) History of coronary angioplasty (~08/2022) History of coronary artery stent placement (~09/2021) 2 stents Hx of tonsillectomy (~1951) Hx of parotidectomy (~2004) 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 Hx of colonoscopy (~2018) Hx of esophagogastroduodenoscopy (~2018) Family History Family History Mother Hypertension Acute myocardial infarction Grandparent Acute myocardial infarction Other Acute myocardial infarction Social History Social History Smoking packs per day: 0.5 Smoking cigarettes per day: 10.0 Years smoked: 1 Smoking pack-years: 0.50 Smoking status: Never smoker Tobacco type: cigarettes Second hand tobacco smoke exposure: No Smoking end date: 04/28/70 Alcohol intake: current Drinks per week: 2 Alcohol use details: rarely Substance use: current Substance use type: does not use Lack of Transportation: No Lack of Food: Never True Current Housing: I Have Housing Concerned About Future Housing: No Difficulty Paying Gas/Electric Bills: No Difficulty Paying for Meds: No Currently Unemployed: No Education: Master's Degree or Higher Difficulty w/ Childcare or Family Care: No Living arrangements: with family Additional living arrangements comments: Gender identity (if verbalized by the patient): Female Spiritual care concerns: No Anes - Eval Final PreProcedure Day of Procedure 01/14/25 11:19 Patient weight: obese Heart: regular rate and rhythm Lungs: clear to auscultation Airway: Mallampati scale class II Neurological: alert and oriented Last oral intake: >/= 8 hours ASA classification: III Emergent: no Anesthetic plan: proceed Anesthesia type and monitoring: general GIVS and standard monitoring Results Review: All pre-operative results and documents have been reviewed as part of the pre-operative evaluation. Informed Consent: The patient's anesthetic plan and its attendant risks and benefits were discussed with the patient/family/POA. Questions were solicited and answers provided to the satisfaction of the patient/family/POA.
[2025-01-14] MEDS: LACTATED RINGERS 1,000 ML 150 ML IV CONT (11:35)
--- NOTE | 2025-01-14 12:10 | PM.HPGS ---
History of Present Illness History of Present Illness Consent: Risks, benefits, and alternatives have been discussed and questions answered. Patient agrees to proceed with procedure. Chief complaint: Personal history of colon polyps, unspecified Narrative: Desirae José is a 79 year old female here for screening colonoscopy, last one about 7 years ago Review of Systems Review of Systems: All systems reviewed & are unremarkable except as noted in HPI and below PMFSH Past Medical History Medical History (Updated 01/14/25 @ 12:11 by Fabrice Napier MD) Colon cancer screening Chronic venous insufficiency of lower extremity Heart failure with preserved ejection fraction Chronic right hip pain Chronic pain of left knee Tricompartment osteoarthritis of left knee Lymphedema of both lower extremities CAD in [place] artery CKD (chronic kidney disease) stage 3, GFR 30-59 ml/min GERD (gastroesophageal reflux disease) Hx of adenomatous colonic polyps RLS (restless legs syndrome) Duodenal ulcer (~11/2018) Chronic low back pain with left-sided sciatica Idiopathic peripheral neuropathy Essential (primary) hypertension Dyslipidemia Pre-diabetes Depression Sciatica Neuropathy Surgical History Surgical History S/P insertion of spinal cord stimulator (~2023) History of right shoulder replacement (~06/2023) History of coronary angioplasty (~08/2022) History of coronary artery stent placement (~09/2021) 2 stents Hx of tonsillectomy (~1951) Hx of parotidectomy (~2004) 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 Hx of colonoscopy (~2018) Hx of esophagogastroduodenoscopy (~2018) Family History Family History Mother Hypertension Acute myocardial infarction Grandparent Acute myocardial infarction Other Acute myocardial infarction Social History Social History Smoking packs per day: 0.5 Smoking cigarettes per day: 10.0 Years smoked: 1 Smoking pack-years: 0.50 Smoking status: Never smoker Tobacco type: cigarettes Second hand tobacco smoke exposure: No Smoking end date: 04/28/70 Alcohol intake: current Drinks per week: 2 Alcohol use details: rarely Substance use: current Substance use type: does not use Lack of Transportation: No Lack of Food: Never True Current Housing: I Have Housing Concerned About Future Housing: No Difficulty Paying Gas/Electric Bills: No Difficulty Paying for Meds: No Currently Unemployed: No Education: Master's Degree or Higher Difficulty w/ Childcare or Family Care: No Living arrangements: with family Additional living arrangements comments: Gender identity (if verbalized by the patient): Female Spiritual care concerns: No Meds Home Medications and Allergies Home Medications ?Medication ?Instructions ?Recorded ?Confirmed ?Type multivitamin with minerals-folic 1 tablet PO DAILY 08/21/21 01/14/25 History acid 120 mcg chewable tablet (Centrum Adult 50 Plus Fresh-Fruity) aspirin 81 mg tablet 81 mg PO DAILY 12/25/21 01/14/25 History metoprolol succinate 25 mg 12.5 mg PO DAILY 12/26/21 01/14/25 History tablet,extended release 24 hr sacubitril 24 mg-valsartan 26 mg 1 tablet PO BID 12/26/21 01/14/25 History tablet (Entresto) Neuropaquell 800 mg PO DAILY 04/02/22 01/14/25 History ropinirole 1 mg tablet 2 mg (2 x 1 mg) PO BID PRN Pain 08/05/24 12/31/24 Rx #360 tabs acetaminophen 500 mg tablet 1,000 mg PO TID PRN Pain 11/01/24 12/31/24 History atorvastatin 80 mg tablet 80 mg PO QHS 11/01/24 01/14/25 History empagliflozin 10 mg tablet 10 mg PO DAILY 11/01/24 01/14/25 History (Jardiance) meloxicam 15 mg tablet 15 mg PO DAILY #90 tabs 11/01/24 01/14/25 Rx omeprazole 20 mg capsule,delayed 20 mg PO DAILY #90 caps 11/01/24 01/14/25 Rx release duloxetine 60 mg capsule,delayed 60 mg PO BID #180 caps 11/02/24 01/14/25 Rx release Compression Wrap and Lymphedema #1 ea 12/14/24 12/31/24 Rx pump Allergies Allergy/AdvReac Type Severity Reaction Status Date / Time Penicillins Allergy Unknown AIRWAY Verified 01/14/25 11:17 CLOSES Sulfa (Sulfonamide Allergy Unknown UNKNOWN Verified 01/14/25 11:17 Antibiotics) Vital Signs Vital Signs - 24 hr 01/14/25 11:18 Temperature 97.4 F L Pulse Rate 56 L Respiratory Rate 18 Blood Pressure 127/84 Pulse Oximetry 100 Oxygen Delivery Room Air Exam Const: General: comfortable and no acute distress HENMT: Face/Nose/Sinus: Normal nares present Eyes: General: appearance normal, both eyes and all related structures Neck: Neck: no JVD Resp: Auscultation: clear to auscultation bilaterally Cardio: Rate: regular rate Rhythm: regular rhythm GI: Inspection: non-distended GI Palp: Yes Soft to palpation Skin: General skin exam: normal color Neuro: Speech: normal speech Extrem: General: normal to inspection Psych: Mental Status: mental status grossly normal Assessment and Plan Assessment and plan (1) Colon cancer screening: Code(s): Z12.11 - Encounter for screening for malignant neoplasm of colon Status: Acute Assessment and Plan: colonoscopy
--- NOTE | 2025-01-14 12:21 | SUR.OPER ---
Patient's heart rate running 20s-40s. Fox Black CRNA & Dr. Madison spoke with patient. Plan of care discussed. Would like patient to see supervisor dyer before having this procedure. Colonoscopy cancelled.
[2025-01-14 12:35] VITALS: BP 117/66; PULSE 47; RESP 16; O2SAT 99
--- NOTE | 2025-01-14 12:56 | SUR.PHASEII ---
Patient and spouse verbalize understanding of needing to follow up with primary doctor and inspector open die as an outpatient as soon as possible. Patient denies any symptoms and vital signs stable- okay to discharge patient to home per Dr Madison. Instructed patient to go to ER if symptoms occurr.
== END 2025-01-14 12:54 | disposition home or self-care (01) ==
PROVIDERS: PCP Family Medicine; Referring Provider Family Medicine; Visit Provider Internal Medicine Gastroenterology
PROC: 0DJD8ZZ Inspection of Lower Intestinal Tract, Via Natural or Artificial Opening Endoscopic (ICD-10-PCS; CPT 45378; principal; 2025-01-14 12:30)
DX: Z12.11 Encounter for screening for malignant neoplasm of colon (principal); R00.1 Bradycardia, unspecified; Z53.09 Procedure and treatment not carried out because of other contraindication; Z86.0100 Personal history of colon polyps, unspecified
CPT/HCPCS: 99213; G0463; J7120

== ENCOUNTER 2025-02-16 02:47 | Day surgery (SDC) | payer MEDICARE, SELFPAY ==
--- OUTSIDE RECORDS SUMMARY | 2024-04-02 06:00 | XMS_ITS ---
Author Organization [facility] Address [address] [place] [id number] Care Team Providers Care Manager Document Control Name Role Phone Skinny Hardy MD Primary Care Provider Unavailable Kevin Galeano Unavailable [phone] REASON FOR VISIT FOLLOW UP - SCS REPROGRAM ([place] AWARE) Encounters Encounter Location Date Provider Diagnosis [facility] [address] [place] [address] [place] [address] 04/02/2024 Kevin Galeano PLAN OF TREATMENT No Information History and Physical Notes * HPI (History of Present Illness) Category Sub-Category Detail Notes Category Not es Pain Management Radiographic Imaging An MRI lumbar spine done on 06/30/20 demonstrates DDD and bilateral facet arthropathy from L1-2 through L5-S1. At L2-3 there is a posterior disc bulge and in combination with facet and ligament hypertrophy there is mild to moderate central canal and bilateral foraminal stenosis. At L3-4 there is a central disc bulge and in combination with facet and ligament hypertrophy this causes moderate central canal and moderate bilateral foraminal stenosis. At L4-5 there is a grade 1 anterolisthesis. In combination with facet and ligament hypertrophy this causes severe central canal and bilateral foraminal stenosis. At L5-S1 there is moderate central canal and severe bilateral foraminal stenosis. An x-ray of the right hip done on 11/07/22 demonstrates mild bilateral hip and moderate bilateral sacroiliac osteoarthritis Assessment and Follow-up: Follow-up Plan documen abram:: Yes MIPS Quality 2020: MIPS Documented:: Compliant
--- OUTSIDE RECORDS SUMMARY | 2024-04-02 06:00 | XMS_ITS ---
Author Organization [facility] Address [address] [place] [address] Bernie Dacosta [place] [address] Care Team Providers Care Solar Sales Ambassador Name Role Phone Skinny Hardy MD Primary Care Provider Unavailable Kevin Galeano Unavailable [phone] ALLERGIES Allergen (clinical drug ingredient) Drug/Non Drug Allergy documented on EMR Reaction Allergy Type Onset Date Status Penicillin anaphylaxis Drug Allergy Acti ve Substance with sulfonamide structure and antibacterial mechanism of action (substance) Sulfa Antibiotics anaphylaxis Drug Allergy Active REASON FOR VISIT Left > Right Low Back Pain, Left > Right Lower Extremity Pain MEDICATIONS Medication SIG (Take, Route, Frequency, Duration) Notes Start Date End Date Status rOPINIRole HCl 1 MG TAKE 2 TABLETS (2MG) BY MOUTH TWICE DAILY NEEDED FOR PAIN WITH RESTLESS LEGS Oral for 90 Active Chlorhexidine Gluconate 4 % as directed Externally prior to surgery for 2 days Active Furosemide 20 MG TAKE 1 TABLET BY MARINO TH TWICE A DAY Oral for 90 Active Metoprolol Succinate ER 25 MG TAKE 1/2 TABLET BY MOUTH DAILY Oral for 90 Active Doxycycline Hyclate 100 MG 1 tablet Oral ly twice a day for 2 days Active Aspirin 81 MG 1 tablet Orally Once a day for 30 day(s) Active DULoxetine HCl 60 MG TAKE 1 CAPSULE BY M OUTH TWICE A DAY Oral for 90 Active Entresto 24-26 MG TAKE 1 TABLET BY MARINO TH TWICE A DAY Oral for 30 Active Acetaminophen 500 MG 1 capsule as needed Orally every 6 hrs Active Atorvastatin Calcium 80 MG TAKE 1 TABLET BY MOUTH EVERYDAY AT BEDTIME Oral for 90 Active traMADol HCl 50 MG 1-2 tablets as neede d Orally every 6 hrs prn severe postoperative pain for 5 days 03/03/2024 Active SOCIAL HISTORY Tobacco Use: Social History Observation Description Date Details (start date - stop date) Former Smoker NA - NA Sex Assigned At : Social History Observation Description Sex Assigned At Unknown Tobacco Use/Smoking Question Answer Notes Are you a former smoker How long has it been since you last smoked? > 10 years Section Notes: The patient is . She is a former smoker. She denies alcohol or illicit drug abuse. VITAL SIGNS Blood pressure systolic 144 mm Hg 04/02/20 Blood pressure diastolic 85 mm Hg 024 Heart Rate 61 /min 04/02/2024 Respiratory Rate 18 /min 04/02/2024 Height 5 ft 2 in in 04/02/2024 Weight 190 lbs 04/02/2024 BMI 34.75 kg/m2 04/02/2024 Post procedure vs=Discharged home ambulatory, in no acute distress. Encounters Encounter Location Date Provider Diagnosis [facility] [address] [place] [id number] 04/02/2024 Kevin Galeano Sacroiliitis, not elsewhere classified M46.1 ASSESSMENTS Encounter Date Diagnosis Assessment Notes Treatment Notes Treatment Clinical Notes Section Notes 04/02/2024 Sacroiliitis, not elsewhere classified (ICD-10 - M46.1) PLAN OF TREATMENT Next Appt Details Follow Up: HAS 04/23/24 F/U SCHEDULED, Reason: Procedure Notes * Category Sub-Category Detail Notes Sacroiliac Joint Injection w ith Arthrogram under Fluoroscopy Location Bilateral Anesthesia Local without IV sed ation Operative Technique After the risks, bob efits, alternative treatments and potential complications related to the procedure were discussed and informed consent was obtained, the patient was placed in the prone position on the fluoroscopy table. Standard ASA monitors were applied. The lower back and buttocks were prepped and draped in the usual sterile fashion with chlorhexidine 2%/IPA 70%. The left, followed by the right, sacroiliac joint was identified under live x-ray. An AP view was obtained superimposing the inferior aspect of the anterior and posterior sacroiliac joint. A 23 gauge 3.5 inch spinal needle was inserted under fluoroscopic guidance towards the inferior aspect of the sacroiliac joint until periosteum was contacted. The subcutaneous structures were anesthetized with 3 mL of 1% Preservative-Free lidocaine during needle placement. The needle tip was advanced into the inferior most aspect of the sacroiliac joint. A lateral view was taken to ensure correct placement within the sacroiliac joint. An AP view was taken and after negative aspiration for blood, air and CSF, 2 mL of Omnipaque 240 contrast dye was injected into each joint under live fluoroscopy for an arthrogram demonstrating normal cephalad spread within the sacroiliac joint (except in cases of contrast allergy). No intravascular or perineural spread noted. There were no abnormalities in articular contour noted on the arthrogram. A solution of 10 mg of Preservative-Free Dexamethasone (10 mg/mL), plus 2 mL of 0.25% PF bupivacaine was mixed and after negative aspiration 1.5 mL of this solution was slowly injected into each (left followed by right) joint space. The needle was removed, the skin was cleaned and band-aids were placed over the puncture site. The patient tolerated the procedure well, was able to ambulate without difficulty and was monitored for 20 minutes. Patient reports an 80% reduction in typical pain immediatey postprocedure. The patient remained hemodynamically and neurologically stable. No apparent complications were observed. Postoperative instructions were reviewed with the patient. The patient was then discharged home in good condition with a driver medic. X-ray time: 19 seconds Progress Notes * Examination Category Sub-Category Detail Notes Category Not es Examination/ Pre-Anesthesia Assessment General: The patient is alert and oriented X 3 in moderate distress secondary to pain HEENT: Normocephalic, atrau matic. PERRL. The oropharynx is clear Neck: There is full range of motion of the cervical spine Heart: Regular rate and rhy thm Chest: Clear to auscultatio n bilaterally Abdomen: Soft, obese and maykel gn with normal bowel sounds throughout Musculoskeletal and Extremities: There i s tenderness to palpation over the bilateral L2-3 through L5-S1 facet joints. Extension and lateral rotation of the lumbar spine reproduces the patient's typical axial low back pain. Domo's, [place]'s and [place]ens[place]'s are positive bilaterally. There is tenderness to palpation over the bilateral sacroiliac joints and greater trochanters. There is tenderness to palpation over the bilateral lumbar paraspinal muscles. There is mild tenderness palpation over the ischial tuberosity bilaterally Neurological: There is positive st raight leg raising bilaterally. There are no focal strength deficits in the bilateral upper and lower extremities Skin: Clean, dry, intact Psychiatric: Mood and affect are normal History and Physical Notes * HPI (History [...] and Follow-up: Follow-up Plan documen abram:: Yes [facility] Quality 2020: MIPS Documented:: Compliant
--- OUTSIDE RECORDS SUMMARY | 2024-04-23 05:15 | XMS_ITS ---
Author Organization [facility] Address [address] [place] [address] [place] [address] Care Team Providers Care Leather Roller Name Role Phone Skinny Hardy MD Primary Care Provider Unavailable Kevin Galeano Unavailable [phone] ALLERGIES Allergen (clinical drug ingredient) Drug/Non Drug Allergy documented on EMR Reaction Allergy Type Onset Date Status Penicillin anaphylaxis Drug Allergy Acti ve Substance with sulfonamide structure and antibacterial mechanism of action (substance) Sulfa Antibiotics anaphylaxis Drug Allergy Active REASON FOR VISIT FOLLOW UP MEDICATIONS Medication SIG (Take, Route, Frequency, Duration) Notes Start Date End Date Status Chlorhexidine Gluconate 4 % as directed Externally prior to surgery for 2 days Active Doxycycline Hyclate 100 MG 1 tablet Oral ly twice a day for 2 days Active traMADol HCl 50 MG 1-2 tablets as neede d Orally every 6 hrs prn severe postoperative pain for 5 days 03/03/2024 Active Metoprolol Succinate ER 25 MG TAKE 1/2 TABLET BY MOUTH DAILY Oral for 90 Active rOPINIRole HCl 1 MG TAKE 2 TABLETS (2MG) BY MOUTH TWICE DAILY NEEDED FOR PAIN WITH RESTLESS LEGS Oral for 90 Active Entresto 24-26 MG TAKE 1 TABLET BY MARINO TH TWICE A DAY Oral for 30 Active Furosemide 20 MG TAKE 1 TABLET BY MARINO TH TWICE A DAY Oral for 90 Active Acetaminophen 500 MG 1 capsule as needed Orally every 6 hrs Active Atorvastatin Calcium 80 MG TAKE 1 TABLET BY MOUTH EVERYDAY AT BEDTIME Oral for 90 Active DULoxetine HCl 60 MG TAKE 1 CAPSULE BY M OUTH TWICE A DAY Oral for 90 Active Aspirin 81 MG 1 tablet Orally Once a day for 30 day(s) Active SOCIAL HISTORY Tobacco Use: Social History [...] She denies alcohol or illicit drug abuse. Encounters Encounter Location Date Provider Diagnosis [facility] [address] [facility] [place] [address] 04/23/2024 Kevin Galeano Sacroiliitis, not elsewhere classified M46.1 ; Radiculopathy, lumbar region M54.16 ; Lumbar radiculopathy M54.16 ; Spinal stenosis, lumbar region with neurogenic claudication M48.062 ; Osseous and subluxation stenosis of intervertebral foramina of lumbar region M99.63 ; Spondylolisthesis, lumbar region M43.16 ; Other intervertebral disc degeneration, lumbar region M51.36 ; Spondylosis without myelopathy or radiculopathy, lumbar region M47.816 ; Spondylosis without myelopathy or radiculopathy, lumbosacral region M47.817 ; jail (current) use of aspirin Z79.82 ; Chronic pain syndrome G89.4 ; Morbid (severe) obesity due to excess calories E66.01 ; jail (current) use of anticoagulants Z79.01 and Drug induced constipation K59.03 ASSESSMENTS Encounter Date Diagnosis Assessment Notes Treatment Notes Treatment Clinical Notes Section Notes 04/23/2024 Sacroiliitis, not elsewhere classified (ICD-10 - M46.1) 04/23/2024 Radiculopathy, lumbar region (ICD-10 - M54.16) 04/23/2024 Lumbar radiculopathy (ICD-10 - M54.16) 04/23/2024 Spinal stenosis, lumbar region with neurogenic claudication (ICD-10 - M48.062) 04/23/2024 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.63) 04/23/2024 Spondylolisthesis, lumbar region (ICD-10 - M43.16) 04/23/2024 Other intervertebral disc degeneration, lumbar region (ICD-10 - M51.36) 04/23/2024 Spondylosis without myelopathy or radiculopathy, lumbar region (ICD-10 - M47.816) 04/23/2024 Spondylosis without myelopathy or radiculopathy, lumbosacral region (ICD-10 - M47.817) 04/23/2024 terminal operations supervisor (current) use of aspirin (ICD-10 - Z79.82) 04/23/2024 Chronic pain syndrome (ICD-10 - G89.4) 04/23/2024 Morbid (severe) obesity due to excess calories (ICD-10 - E66.01) 04/23/2024 terminal operations supervisor (current) use of anticoagulants (ICD-10 - Z79.01) 04/23/2024 Drug induced constipation (ICD-10 - K59.03) PLAN OF TREATMENT No Information Progress Notes * Examination Category Sub-Category Detail [...] patient's typical axial low back pain. Domo's, [place]'s and Gaenslen's are positive bilaterally. There is [...] upper and lower extremities Skin: Clean, dry, intact. Postoperative midline lumbar spine and right buttock incisions are well approximated with wound glue and are healing nicely without signs or symptoms of dehiscence, bleeding or infection Psychiatric: Mood and affect are normal History [...] and Follow-up: Follow-up Plan documen abram:: Yes [facility] Quality 2020: MIPS Documented:: Compliant
--- OUTSIDE RECORDS SUMMARY | 2024-05-07 06:15 | XMS_ITS ---
Author Organization [facility] Address [address] [place] [address] [place] [address] Care Team Providers Care Passenger Representative Name Role Phone Skinny Hardy MD Primary Care Provider Unavailable Kevin Galeano Unavailable [phone] ALLERGIES Allergen (clinical drug ingredient) Drug/Non Drug [...] WITH RESTLESS LEGS Oral for 90 Active Metoprolol Succinate ER 25 MG TAKE 1/2 TABLET BY MOUTH DAILY Oral for 90 Active Acetaminophen 500 MG [...] Date Provider Diagnosis [facility] [address] [facility] [place] [address] 05/07/2024 Kevin Galeano Sacroiliitis, not elsewhere classified M46.1 [...] myelopathy or radiculopathy, lumbosacral region M47.817 ; rodent exterminator (current) use of aspirin Z79.82 ; Chronic pain syndrome G89.4 ; Morbid (severe) obesity due to excess calories E66.01 ; rodent exterminator (current) use of anticoagulants Z79.01 and Drug induced constipation K59.03 ASSESSMENTS Encounter Date Diagnosis Assessment Notes Treatment Notes Treatment Clinical Notes Section Notes 05/07/2024 Sacroiliitis, not elsewhere classified (ICD-10 - M46.1) 05/07/2024 Radiculopathy, lumbar region (ICD-10 - M54.16) 05/07/2024 Lumbar radiculopathy (ICD-10 - M54.16) 05/07/2024 Spinal stenosis, lumbar region with neurogenic claudication (ICD-10 - M48.062) 05/07/2024 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.63) 05/07/2024 Spondylolisthesis, lumbar region (ICD-10 - M43.16) 05/07/2024 Other intervertebral disc degeneration, lumbar region (ICD-10 - M51.36) 05/07/2024 Spondylosis without myelopathy or radiculopathy, lumbar region (ICD-10 - M47.816) 05/07/2024 Spondylosis without myelopathy or radiculopathy, lumbosacral region (ICD-10 - M47.817) 05/07/2024 rodent exterminator (current) use of aspirin (ICD-10 - Z79.82) 05/07/2024 Chronic pain syndrome (ICD-10 - G89.4) 05/07/2024 Morbid (severe) obesity due to excess calories (ICD-10 - E66.01) 05/07/2024 jail (current) use of anticoagulants (ICD-10 - Z79.01) 05/07/2024 Drug induced constipation (ICD-10 - K59.03) PLAN [...] patient's typical axial low back pain. Domo's, [place]'s and Gaenslen's are positive bilaterally. There is [...] and Follow-up: Follow-up Plan documen abram:: Yes [facility] Quality 2020: [facility] Documented:: Compliant
--- OUTSIDE RECORDS SUMMARY | 2024-05-17 06:00 | XMS_ITS ---
Author Organization [facility] Address [address] [place] [address] [place] [address] Care Team Providers Care Housekeeping And Laundry Team Leader Name Role Phone Skinny Hardy MD Primary Care Provider Unavailable Kevin Galeano Unavailable [phone] ALLERGIES Allergen (clinical drug ingredient) Drug/Non Drug Allergy documented on EMR Reaction Allergy Type Onset Date Status Penicillin anaphylaxis Drug Allergy Acti ve Substance with sulfonamide structure and antibacterial mechanism of action (substance) Sulfa Antibiotics anaphylaxis Drug Allergy Active REASON FOR VISIT Follow Up, Right > Left Low Back Pain, Right = Left Lower Extremity Pain MEDICATIONS Medication SIG (Take, [...] BY MOUTH DAILY Oral for 90 Active DULoxetine HCl 60 MG TAKE 1 CAPSULE BY M OUTH TWICE A DAY Oral for 90 Active Aspirin 81 MG 1 tablet Orally Once a day for 30 day(s) Active Acetaminophen 500 MG 1 capsule as needed Orally every 6 hrs Active Atorvastatin Calcium 80 MG TAKE 1 TABLET BY MOUTH EVERYDAY AT BEDTIME Oral for 90 Active SOCIAL HISTORY Tobacco Use: Social History [...] drug abuse. VITAL SIGNS Blood pressure systolic 138 mm Hg 05/17/19 25 Blood pressure diastolic 84 mm Hg 025 Heart Rate 70 /min 05/17/2024 Respiratory Rate 18 /min 05/17/2024 Height 5 ft 2 in in 05/17/2024 Weight 190 lbs 05/17/2024 BMI 34.75 kg/m2 05/17/2024 Encounters Encounter Location Date Provider Diagnosis [facility] [address] [place] [address] [place] [address] 05/17/2024 Kevin Galeano Sacroiliitis, not elsewhere classified M46.1 [...] myelopathy or radiculopathy, lumbosacral region M47.817 ; isotope hydrologist (current) use of aspirin Z79.82 ; Chronic pain syndrome G89.4 ; Morbid (severe) obesity due to excess calories E66.01 ; custodial (current) use of anticoagulants Z79.01 and Drug induced constipation K59.03 ASSESSMENTS Encounter Date Diagnosis Assessment Notes Treatment Notes Treatment Clinical Notes Section Notes 05/17/2024 Sacroiliitis, not elsewhere classified (ICD-10 - M46.1) schedule a bilateral sacroiliac joint injection. The risks of this procedure including pain, bleeding, infection, insomnia, hyperglycemia, hair loss, muscle atrophy, skin depigmentation, weight gain, fluid retention, adrenal suppression, immunosuppressio n, osteoporosis resulting in fractures, avascular necrosis of the hip, cataracts, bleeding gastric ulcer, worsening pain and failure to relieve pain were discussed and the patient is agreeable to proceeding at this time. 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) 05/17/2024 Spondylosis without myelopathy or radiculopathy, lumbar region (ICD-10 - M47.816) 05/17/2024 Spondylosis without myelopathy or radiculopathy, lumbosacral region (ICD-10 - M47.817) 05/17/2024 isotope hydrologist (current) use of aspirin (ICD-10 - Z79.82) 05/17/2024 Chronic pain syndrome (ICD-10 - G89.4) 05/17/2024 Morbid (severe) obesity due to excess calories (ICD-10 - E66.01) 05/17/2024 isotope hydrologist (current) use of anticoagulants (ICD-10 - Z79.01) 05/17/2024 Drug induced constipation (ICD-10 - K59.03) 05/17/2024 Other The above-named patient was evaluated in conjunction with Dr. Galeano. I have discussed and reviewed all of the pertinent history, physical examination findings and diagnostic imaging results with him. As a result of our discussion, Dr. Galeano has determined the above assessment and directed the treatment plan. This note was dictated using voice recognition software and therefore inadvertent errors may have occurred. This note was dictated by NIKKI Self. Total Time Spent with Patient and Medical Decision Makin minutes PLAN OF TREATMENT Treatment Notes Assessment Notes Sacroiliitis, not elsewhere classified s chedule a bilateral sacroiliac joint injection. The risks of this procedure including pain, bleeding, infection, insomnia, hyperglycemia, hair loss, muscle atrophy, skin depigmentation, weight gain, fluid retention, adrenal suppression, immunosuppression, osteoporosis resulting in fractures, avascular necrosis of the hip, cataracts, bleeding gastric ulcer, worsening pain and failure to relieve pain were discussed and the patient is agreeable to proceeding at this time. Other The above-named patient was evaluated in conjunction with Dr. Galeano. I have discussed and reviewed all of the pertinent history, physical examination findings and diagnostic imaging results with him. As a result of our discussion, Dr. Galeano has determined the above assessment and directed the treatment plan. This note was dictated using voice recognition software and therefore inadvertent errors may have occurred. This note was dictated by NIKKI Self. Total Time Spent with Patient and Medical Decision Makin minutes Next Appt Details Follow Up: bilateral SIJ berny roid injection, Reason: Progress Notes * Examination Category Sub-Category Detail [...] patient's typical axial low back pain. Domo's, [place]'s and Gaenslen's are positive bilaterally. There is [...]
--- OUTSIDE RECORDS SUMMARY | 2024-07-16 05:00 | XMS_ITS ---
Author Organization [facility] Address [address] [place] [phone] Care Team Providers Care Military Pay Technician Name Role Phone Skinny Hardy MD Primary Care Provider Unavailable Kevin Galeano Unavailable [phone] ALLERGIES Allergen (clinical drug ingredient) Drug/Non Drug Allergy documented on EMR Reaction Allergy Type Onset Date Status Penicillin anaphylaxis Drug Allergy Acti ve Substance with sulfonamide structure and antibacterial mechanism of action (substance) Sulfa Antibiotics anaphylaxis Drug Allergy Active REASON FOR VISIT BILAT SACROILIAC JOINT INJECTION MEDICATIONS Medication SIG (Take, Route, Frequency, Duration) Notes Start Date End Date Status Metoprolol Succinate ER 25 MG TAKE 1/2 TABLET BY MOUTH DAILY Oral for 90 Active Atorvastatin Calcium 80 MG TAKE 1 TABLET BY MOUTH EVERYDAY AT BEDTIME Oral for 90 Active Entresto 24-26 MG TAKE 1 TABLET BY MARINO TH TWICE A DAY Oral for 30 Active DULoxetine HCl 60 MG TAKE 1 CAPSULE BY M OUTH TWICE A DAY Oral for 90 Active Furosemide 20 MG TAKE 1 TABLET BY MARINO TH TWICE A DAY Oral for 90 Active rOPINIRole HCl 1 MG TAKE 2 TABLETS (2MG) BY MOUTH TWICE DAILY NEEDED FOR PAIN WITH RESTLESS LEGS Oral for 90 Active Aspirin 81 MG 1 tablet Orally Once a day for 30 day(s) Active Acetaminophen 500 MG 1 capsule as needed Orally every 6 hrs Active Encounters Encounter Location Date Provider Diagnosis [facility] [address] [facility] [address] 07/16/2024 Kevin Galeano Sacroiliitis, not elsewhere classified M46.1 ASSESSMENTS Encounter Date Diagnosis Assessment Notes Treatment Notes Treatment Clinical Notes Section Notes 07/16/2024 Sacroiliitis, not elsewhere classified (ICD-10 - M46.1) PLAN OF TREATMENT No Information Procedure Notes * Category Sub-Category Detail Notes [...] difficulty and was monitored for 20 minutes. The patient remained hemodynamically and neurologically stable. No apparent complications were observed. Postoperative instructions were reviewed with the patient. The patient was then discharged home in good condition with a regional flatbed truck driver. X-ray time: 8 seconds Progress Notes * Examination Category Sub-Category [...] patient's typical axial low back pain. Domo's, [place]'s and Gaenslen's are positive bilaterally. There is [...]
--- OUTSIDE RECORDS SUMMARY | 2024-07-23 05:00 | XMS_ITS ---
Author Organization [facility] Address [address] [place] [address] [place] [address] Care Team Providers Care Mud Grinder Name Role Phone Skinny Hardy MD Primary Care Provider Unavailable Kevin Galeano Unavailable [phone] ALLERGIES Allergen (clinical drug ingredient) Drug/Non Drug Allergy documented on EMR Reaction Allergy Type Onset Date Status Penicillin anaphylaxis Drug Allergy Acti ve Substance with sulfonamide structure and antibacterial mechanism of action (substance) Sulfa Antibiotics anaphylaxis Drug Allergy Active REASON FOR VISIT Left > Right Low Back Pain MEDICATIONS Medication SIG (Take, Route, Frequency, Duration) Notes Start Date End Date Status Aspirin 81 MG 1 tablet Orally Once a day for 30 day(s) Active Metoprolol Succinate ER 25 MG TAKE 1/2 TABLET BY MOUTH DAILY Oral for 90 Active rOPINIRole HCl 1 MG TAKE 2 TABLETS (2MG) BY MOUTH TWICE DAILY NEEDED FOR PAIN WITH RESTLESS LEGS Oral for 90 Active Atorvastatin Calcium 80 MG TAKE 1 TABLET BY MOUTH EVERYDAY AT BEDTIME Oral for 90 Active Acetaminophen 500 MG 1 capsule as needed Orally every 6 hrs Active Entresto 24-26 MG TAKE 1 TABLET BY MARINO TH TWICE A DAY Oral for 30 Active Furosemide 20 MG TAKE 1 TABLET BY MARINO TH TWICE A DAY Oral for 90 Active DULoxetine HCl 60 MG TAKE 1 CAPSULE BY M OUTH TWICE A DAY Oral for 90 Active VITAL SIGNS Blood pressure systolic 141 mm Hg 07/24/19 25 Blood pressure diastolic 80 mm Hg 025 Heart Rate 81 /min 07/23/2024 Respiratory Rate 18 /min 07/23/2024 Height 5 ft 2 in in 07/23/2024 Weight 190 lbs 07/23/2024 BMI 34.75 kg/m2 07/23/2024 Encounters Encounter Location Date Provider Diagnosis [facility] [address] [facility] [place] [address] [place] [address] 07/23/2024 Kevin Galeano Sacroiliitis, not elsewhere classified M46.1 ASSESSMENTS Encounter Date Diagnosis Assessment Notes Treatment Notes Treatment Clinical Notes Section Notes 07/23/2024 Sacroiliitis, not elsewhere classified (ICD-10 - M46.1) PLAN OF TREATMENT Next Appt Details Follow Up: HAS F/U ON 5 SCHEDULED, Reason: Procedure Notes * Category Sub-Category [...] was monitored for 20 minutes. Patient reports a 90% reduction in typical pain immediately postprocedure. The patient remained hemodynamically and neurologically stable. No apparent complications were observed. Postoperative instructions were reviewed with the patient. The patient was then discharged home in good condition with a dray driver. X-ray time: 10 seconds Progress Notes * Examination Category Sub-Category [...] patient's typical axial low back pain. Domo's, [place]'s and Gaenslen's are positive bilaterally. There is [...] and Follow-up: Follow-up Plan documen abram:: Yes [facility] Quality 2020: MIPS Documented:: Compliant
--- OUTSIDE RECORDS SUMMARY | 2024-08-06 04:15 | XMS_ITS ---
Author Organization [facility] Address [address] [place] [address] [place] [address] Care Team Providers Care Barrel Raiser Name Role Phone Skinny Hardy MD Primary Care Provider Unavailable Kevin Galeano Unavailable [phone] ALLERGIES Allergen (clinical drug ingredient) Drug/Non Drug Allergy documented on EMR Reaction Allergy Type Onset Date Status Penicillin anaphylaxis Drug Allergy Acti ve Substance with sulfonamide structure and antibacterial mechanism of action (substance) Sulfa Antibiotics anaphylaxis Drug Allergy Active REASON FOR VISIT follow up MEDICATIONS Medication SIG (Take, Route, Frequency, Duration) Notes Start Date End Date Status Furosemide 20 MG TAKE 1 TABLET BY [...] TWICE A DAY Oral for 30 Active rOPINIRole HCl 1 MG TAKE 2 TABLETS (2MG) BY MOUTH TWICE DAILY NEEDED FOR PAIN WITH RESTLESS LEGS Oral for 90 Active Jardiance 10 MG TAKE 1 TABLET BY MARINO TH EVERY DAY Oral for 30 Active Aspirin 81 MG 1 tablet Orally Once a day for 30 day(s) Active Acetaminophen 500 MG 1 capsule as needed Orally every 6 hrs Active SOCIAL HISTORY Tobacco Use: Social History [...] Date Provider Diagnosis [facility] [address] [facility] [address] [place] [address] 08/06/2024 Kevin Galeano Sacroiliitis, not elsewhere classified M46.1 [...] myelopathy or radiculopathy, lumbosacral region M47.817 ; 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 ; Chronic pain syndrome G89.4 ; Morbid (severe) obesity due to excess calories E66.01 ; MCFP (current) use of anticoagulants Z79.01 and Drug induced constipation K59.03 ASSESSMENTS Encounter Date Diagnosis Assessment Notes Treatment Notes Treatment Clinical Notes Section Notes 08/06/2024 Sacroiliitis, not elsewhere classified (ICD-10 - M46.1) 08/06/2024 Radiculopathy, lumbar region (ICD-10 - M54.16) 08/06/2024 Lumbar radiculopathy (ICD-10 - M54.16) 08/06/2024 Spinal stenosis, lumbar region with neurogenic claudication (ICD-10 - M48.062) 08/06/2024 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.63) 08/06/2024 Spondylolisthesis, lumbar region (ICD-10 - M43.16) 08/06/2024 Other intervertebral disc degeneration, 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 Domo's, [place]'s and Gaenslen's are positive bilaterally. There is [...] and Follow-up: Follow-up Plan documen abram:: Yes [facility] Quality 2020: MIPS Documented:: Compliant
--- OUTSIDE RECORDS SUMMARY | 2024-08-13 06:15 | XMS_ITS ---
Author Organization [facility] Address [address] [place] [address] [place] [address] Care Team Providers Care Setter [employer]aging [employer]ines Name Role Phone Skinny Hardy MD Primary Care Provider Unavailable Kevin Galeano Unavailable [phone] ALLERGIES Allergen (clinical drug ingredient) Drug/Non Drug Allergy documented on EMR Reaction Allergy Type Onset Date Status Penicillin anaphylaxis Drug Allergy Acti ve Substance with sulfonamide structure and antibacterial mechanism of action (substance) Sulfa Antibiotics anaphylaxis Drug Allergy Active REASON FOR VISIT Follow Up, Right = Left Low Back Pain, Right = Left Lower Extremity Pain MEDICATIONS Medication SIG (Take, Route, Frequency, Duration) Notes Start Date End Date Status Jardiance 10 MG TAKE 1 TABLET BY MARINO TH EVERY DAY Oral for 30 Active rOPINIRole HCl 1 MG TAKE 2 TABLETS (2MG) BY MOUTH TWICE DAILY NEEDED FOR PAIN WITH RESTLESS LEGS Oral for 90 Active Metoprolol Succinate ER 25 MG TAKE 1/2 TABLET BY MOUTH DAILY Oral for 90 Active Furosemide 20 MG TAKE 1 TABLET BY MARINO TH TWICE A DAY Oral for 90 Active Entresto 24-26 MG TAKE 1 TABLET BY MARINO TH TWICE A DAY Oral for 30 Active DULoxetine HCl 60 MG TAKE 1 CAPSULE BY M OUTH TWICE A DAY Oral for 90 Active Atorvastatin Calcium 80 MG TAKE 1 TABLET BY MOUTH EVERYDAY AT BEDTIME Oral for 90 Active Acetaminophen 500 MG 1 capsule as needed Orally every 6 hrs Active Aspirin 81 MG 1 tablet Orally [...] drug abuse. VITAL SIGNS Blood pressure systolic 126 mm Hg 08/14/19 25 Blood pressure diastolic 82 mm Hg 025 Heart Rate 72 /min 08/13/2024 Respiratory Rate 16 /min 08/13/2024 Height 5 ft 2 in in 08/13/2024 Weight 188 lbs 08/13/2024 BMI 34.38 kg/m2 08/13/2024 Encounters Encounter Location Date Provider Diagnosis [facility] [address] [place] [id number] 08/13/2024 Kevin Galeano Sacroiliitis, not elsewhere classified M46.1 ; Radiculopathy, lumbosacral region M54.17 ; Radiculopathy, lumbar region M54.16 ; Lumbar radiculopathy M54.16 ; Spinal stenosis, lumbar region with neurogenic claudication M48.062 ; Osseous and subluxation stenosis of intervertebral foramina of lumbar region M99.63 ; Spondylolisthesis, lumbar region M43.16 ; Other intervertebral disc degeneration, lumbar region M51.36 ; Spondylosis without myelopathy or radiculopathy, lumbar region M47.816 ; Spondylosis without myelopathy or radiculopathy, lumbosacral region M47.817 ; half-way (current) use of aspirin Z79.82 ; Chronic pain syndrome G89.4 ; Morbid (severe) obesity due to excess calories E66.01 ; 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 The risks of this procedure including pain, bleeding, infection, spinal headache, persistent spinal fluid leak, epidural hematoma, nerve damage, spinal cord injury, paralysis, total spinal anesthesia resulting in cardiopulmonary arrest/, respiratory distress requiring intubation, insomnia, hyperglycemia, hair loss, muscle atrophy, skin depigmentation, weight gain, fluid retention, adrenal suppression, immunosuppression, osteoporosis resulting in fractures, avascular necrosis of the hip, cataracts, bleeding gastric ulcer, worsening pain and failure to relieve pain were discussed and the patient is agreeable to proceeding at this time. 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 I made the patient aware that they will be at an increased risk for a thromboembolic event during this time and they are willing to accept this risk. The patient was instructed to notify their primary care physician and/or fire protection fabricator to obtain clearance prior to discontinuing this medication. 08/13/2024 Drug induced constipation (ICD-10 - K59.03) 08/13/2024 Other The above-named patient was evaluated in [...] PLAN OF TREATMENT Treatment Notes Assessment Notes Radiculopathy, lumbosacral region [place] a bilateral L5-S1 transforaminal epidural steroid injection. The risks of this procedure including pain, bleeding, infection, spinal headache, persistent spinal fluid leak, epidural hematoma, nerve damage, spinal cord injury, paralysis, total spinal anesthesia resulting in cardiopulmonary arrest/, respiratory distress requiring intubation, insomnia, hyperglycemia, hair loss, muscle atrophy, skin depigmentation, weight gain, fluid retention, adrenal suppression, immunosuppression, osteoporosis resulting in fractures, avascular necrosis of the hip, cataracts, bleeding gastric ulcer, worsening pain and failure to relieve pain were discussed and the patient is agreeable to proceeding at this time. half-way (current) use of anticoagulant s The patient was instructed to discontinue aspirin for 6 days prior to the procedure. I made the patient aware that they will be at an increased risk for a thromboembolic event during this time and they are willing to accept this risk. The patient was instructed to notify their primary care physician and/or fire protection fabricator to obtain clearance prior to discontinuing this medication. Other The above-named patient was evaluated in [...] minutes Next Appt Details Follow Up: bilateral L5-S1 T FE, Reason: Progress Notes * Examination Category Sub-Category [...] patient's typical axial low back pain. Domo's, [place]'s and Gaenslen's are positive bilaterally. There is [...] sacroiliac osteoarthritis Assessment and Follow-up: Follow-up Plan docroby abram:: Yes [facility] Quality 2020: MIPS Documented:: Compliant
--- OUTSIDE RECORDS SUMMARY | 2024-09-03 04:45 | XMS_ITS ---
Author Organization [facility] Address [address] [place] [phone] Care Team Providers Care Rolloff Driver Name Role Phone Skinny Hardy MD Primary Care Provider Unavailable Kevin Galeano Unavailable [phone] ALLERGIES Allergen (clinical drug ingredient) Drug/Non Drug Allergy documented on EMR Reaction Allergy Type Onset Date Status Penicillin anaphylaxis Drug Allergy Acti ve Substance with sulfonamide structure and antibacterial mechanism of action (substance) Sulfa Antibiotics anaphylaxis Drug Allergy Active REASON FOR VISIT BILAT L5-S1 TFE (HOLD ASA FOR 6 DAYS) MEDICATIONS Medication SIG (Take, Route, Frequency, Duration) Notes Start Date End Date Status Atorvastatin Calcium 80 MG TAKE 1 TABLET BY MOUTH EVERYDAY AT BEDTIME Oral for 90 Active Acetaminophen 500 MG 1 capsule as needed Orally every 6 hrs Active Aspirin 81 MG 1 tablet Orally Once a day for 30 day(s) Active Jardiance 10 MG TAKE 1 TABLET BY MARINO TH EVERY DAY Oral for 30 Active rOPINIRole HCl 1 MG TAKE 2 TABLETS (2MG) BY MOUTH TWICE DAILY NEEDED FOR PAIN WITH RESTLESS LEGS Oral for 90 Active Furosemide 20 MG [...] BY MOUTH DAILY Oral for 90 Active Encounters Encounter Location Date Provider Diagnosis [facility] [address] [facility] [place] [address] [place] [address] 09/03/2024 Kevin Galeano Radiculopathy, lumbar region M54.16 ASSESSMENTS Encounter Date Diagnosis Assessment Notes Treatment Notes Treatment Clinical Notes Section Notes 09/03/2024 Radiculopathy, lumbar region (ICD-10 - M54.16) PLAN OF TREATMENT No Information Procedure Notes * Category Sub-Category Detail Notes Transforaminal Epidural Steroid Injection Locati on Bilateral Levels L5-S1 Anesthesia Local without IV sed ation Operative Technique After the risks, bob efits, alternative treatment options and potential complications related to the procedure were discussed, informed consent was obtained. The specific risks of this procedure including pain, bleeding, [...] is agreeable to proceeding at this time. The patient was placed in the prone position on the fluoroscopy table and standard ASA monitors were applied. The back was prepped and draped in the usual sterile fashion with chlorhexidine 2%/IPA 70%. The c-arm was obliqued and tilted to identify the left L5-S1 neural foramen and a 23 gauge 3.5 inch spinal needle was inserted under fluoroscopic guidance towards the junction of the inferior endplate and superior articular process until the superior articular process was contacted. A lateral view was taken and the needle tip was advanced into the posterior aspect of the neuroforamen. The subcutaneous structures were anesthetized with 3 mL of 1% Preservative-Free lidocaine during needle placement. An AP view was taken and after negative aspiration for blood, air or CSF, 2 mLs of Omnipaque 240 contrast dye was injected under live fluoroscopy for an epidurogram showing good spread within the epidural space and along the selected nerve root (except in cases of contrast allergy). No intravascular or intrathecal spread was noted. A solution of 10 mg of Preservative-Free Dexamethasone (10 mg/mL), plus 3 mL of 0.25% Preservative-Free bupivacaine was mixed and after negative aspiration 2 mL of this solution was slowly injected into the epidural space. The c-arm was obliqued and tilted to identify the right L5-S1 neural foramen and a 23 gauge 3.5 inch spinal needle was inserted under fluoroscopic guidance towards the junction of the inferior endplate and superior articular process until the superior articular process was contacted. A lateral view was taken and the needle tip was advanced into the posterior aspect of the neuroforamen. The subcutaneous structures were anesthetized with 3 mL of 1% Preservative-Free lidocaine during needle placement. An AP view was taken and after negative aspiration for blood, air or CSF, 2 mLs of Omnipaque 240 contrast dye was injected under live fluoroscopy for an epidurogram showing good spread within the epidural space and along the selected nerve root (except in cases of contrast allergy). No intravascular or intrathecal spread was noted. From the solution of 10 mg of Preservative-Free Dexamethasone (10 mg/mL), plus 3 mL of 0.25% Preservative-Free bupivacaine, 2 mL of this solution was slowly injected into the epidural space. The needles were removed, the skin was cleaned and band-aids were placed over the puncture sites. The patient tolerated the procedure well, was able to ambulate without difficulty and was monitored for 20 minutes. Patient reports a 90% reduction in typical pain immediately postprocedure. The patient remained hemodynamically and neurologically stable. No apparent complications were observed. Postoperative instructions were reviewed with the patient. 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 X-ray time: 25 seconds Progress Notes * Examination Category Sub-Category [...] patient's typical axial low back pain. Domo's, [place]'s and Gaenslen's are positive bilaterally. There is [...] sacroiliac osteoarthritis Assessment and Follow-up: Follow-up Plan documemarcos abram:: Yes [facility] Quality 2020: MIPS Documented:: Compliant
[2025-02-15 14:58] VITALS: BMI 40.1
[2025-02-16] VITALS (16 sets, daily range): BP systolic 95–153; BP diastolic 64–89; PULSE 60–79; RESP 14–19; TEMP 36.1–36.9; O2SAT 95–100; BMI 39.9
--- NOTE | ~2025-02-16 | XR_ITS ---
EXAMINATION: XR chest 2V, 02/17/2025 9:52 CDT HISTORY: 24 hours post pacemaker insertion COMPARISON: No comparisons available. Technique: 2 views obtained. Findings: The lungs are clear, no effusion. No pneumothorax. Heart is normal size. Mediastinal and hilar contours are within normal limits. Bony thorax no acute abnormality. Left pacemaker. Impression: No pneumothorax Reviewed, dictated and finalized at location P. Impression: No pneumothorax
--- NOTE | ~2025-02-16 | XR_ITS ---
Examination: XR chest 1V portable Clinical History: pacemaker insertion Comparison: X-rays 01/01/2024 Technique: Portable AP Findings: Left pacemaker. Spinal stimulator leads Heart size normal. Lungs clear. No pneumothorax. Small chronic linear scar left midlung. No acute bony abnormality. IMPRESSION: 1. No acute cardiopulmonary findings given portable technique. Reviewed, dictated and finalized at location R.
--- OUTSIDE RECORDS SUMMARY | 2025-02-16 02:50 | XMS_ITS | Clinical Summary ---
Author Organization [facility] Address [address] [address] Phone Care Team Providers Care Business Support Manager Name Role Phone Skinny Hardy MD Primary [...] (Adult) (1 - 1-dose 75+ series) 2020 Influenza Immunization (#1) 2024 SARS-COV-2 Immunization (2024- season) 2024 04/17/2021, 07/27/2020, 07/06/2020 Colonoscopy Discontinued 12/09/2018, 11/05/2018 Colorectal Cancer Screening [...] Recently Relevant to Health Maintenance Care Teams Business Support Manager Relationship Specialty Start Date End Date Skinny Hardy MD PCP - General Family Medicine 10/26/18
--- OUTSIDE RECORDS SUMMARY | 2025-02-16 02:50 | XMS_ITS | Encounter Summary ---
Author Organization [facility] Healthcare Address [address] [place] [address] Care Team Providers Care Journeyman Press Operator Name Role Phone Skinny Hardy MD Primary Care Provider Kang Blackmon MD Unavailable [phone] Skinny Hardy MD Primary Care Provider Reason for Visit * Reason Onset Date Comments Pre-Surgical Call 02/22/2021 Encounter Details Date Type Department Care Team (Late st Contact Info) Description 02/22/2021 Telephone [facility] at the [place] [facility] [address] [facility] Advanced [address] [place] [address] Milton Sandoval MD PhD [address] [facility] [address] [facility] [address] [place] [address] Pre-Surgical Call Social History Tobacco Use Types [...] on file Legal Sex Female 12:59 PM OTHER SPORTS OFFICIAL Gender Identity Female 04/26/2021 1:43 PM OTHER SPORTS OFFICIAL Sexual Orientation Straight 04/26/2021 1: 43 PM OTHER SPORTS OFFICIAL documented as of this encounter Miscellaneous Notes [...] Chronic Care Management No change(05/17 11:00 AM OTHER SPORTS OFFICIAL) No Desirae Pearson RN Note: Problem: Chronic Pain Goals: 1. Minimize further functional decline 2. Maximize quality of life 3. Control pain Strategies: - Activity/exercise program recommendation - Conservative stepwise pain medicine strategy with multi-disciplinary approach - Recommend healthy lifestyle strategies and compensatory methods as needed documented as of this encounter Visit Diagnoses Not on filedocumented in this encounter Care Teams Journeyman Press Operator Relationship Specialty Start Date End Date Skinny Hardy MD PCP - General Family Practice 12/08/17 06/24/23 Skinny Hardy MD [address] [place] [address] [place] [address] PCP - General Family Practice 06/25/23 Kang Blackmon MD [address] [address] Surgeon Anesthesiology 01/14/20 documented as of this encounter
--- OUTSIDE RECORDS SUMMARY | 2025-02-16 02:50 | XMS_ITS | Encounter Summary ---
Author Organization [facility] Healthcare Address [address] [place] [address] Care Team Providers Care Alcoholism Worker Name Role Phone Skinny Hardy MD Primary Care Provider Kang Blackmon MD Unavailable [phone] Skinny Hardy MD Primary Care Provider Reason for Visit * Reason Onset Date Comments Prior Auth 03/01/2021 Movantik 25mg Encounter Details Date Type Department Care Team (Late st Contact Info) Description 03/01/2021 Telephone [facility] [place] [facility] [address] [facility] Advanced Medicine [address] [place], [place] [id number] Milton Sandoval MD PhD [address] [facility] [address] [facility] [address] [place] [address] Prior Auth (Movantik 25mg) Social History Tobacco Use Types Packs/Day Years [...] on file Legal Sex Female 12:59 PM CRAB STEAMER Gender Identity Female 04/26/2021 1:43 PM CRAB STEAMER Sexual Orientation Straight 04/26/2021 1: 43 PM CRAB STEAMER documented as of this encounter Plan of Treatment Not on file documented as of this encounter Goals Goal Patient Goal Type Associated Problems Recent Progress Patient-Stated? Author CCM Chronic Pain Care Plan Chronic Care Management No change(05/17 11:00 AM CRAB STEAMER) No Desirae Pearson RN Note: Problem: Chronic Pain Goals: 1. Minimize further functional decline 2. Maximize quality of life 3. Control pain Strategies: - Activity/exercise program recommendation - Conservative stepwise pain medicine strategy with multi-disciplinary approach - Recommend healthy lifestyle strategies and compensatory methods as needed documented as of this encounter Visit Diagnoses Not on filedocumented in this encounter Care Teams Alcoholism Worker Relationship Specialty Start Date End Date Skinny Hardy MD PCP - General Family Practice 12/08/17 06/24/23 Skinny Hardy MD [address] [place] [address] [place] [address] PCP - General Family Practice 06/25/23 Kang Blackmon MD [address] [place] [address] Surgeon Anesthesiology 01/14/20 documented as of this encounter
--- OUTSIDE RECORDS SUMMARY | 2025-02-16 02:50 | XMS_ITS | Encounter Summary ---
Author Organization [facility] Healthcare Address [address] [place] [address] Care Team Providers Care Muck Operator Name Role Phone Skinny Hardy MD Primary Care Provider Kang Blackmon MD Unavailable [phone] Skinny Hardy MD Primary Care Provider Reason for Visit * Reason Onset Date Comments Refill of medication 04/16/2021 [place] Encounter Details Date Type Department Care Team (Late st Contact Info) Description 04/16/2021 Telephone [facility] at the [place] [facility] [address] [facility] Advanced Medicine [address] [place] [address] Milton Sandoval MD PhD [address] [facility] [address] [facility] [address] [place] [address] Refill of medication ([place]) Social History Tobacco Use Types Packs/Day Years [...] on file Legal Sex Female 12:59 PM CHEF CONCIERGE Gender Identity Female 04/26/2021 1:43 PM CHEF CONCIERGE Sexual Orientation Straight 04/26/2021 1: 43 PM CHEF CONCIERGE documented as of this encounter Plan of Treatment Not on file documented as of this encounter Goals Goal Patient Goal Type Associated Problems Recent Progress Patient-Stated? Author CCM Chronic Pain Care Plan Chronic Care Management No change(05/17 11:00 AM CHEF CONCIERGE) No Desirae Pearson RN Note: Problem: Chronic Pain Goals: 1. Minimize further functional decline 2. Maximize quality of life 3. Control pain Strategies: - Activity/exercise program recommendation - Conservative stepwise pain medicine strategy with multi-disciplinary approach - Recommend healthy lifestyle strategies and compensatory methods as needed documented as of this encounter Visit Diagnoses Not on filedocumented in this encounter Care Teams Muck Operator Relationship Specialty Start Date End Date Skinny Hardy MD PCP - General Family Practice 12/08/17 06/24/23 Skinny Hardy MD [address] [place] [address] [place] [address] PCP - General Family Practice 06/25/23 Kang Blackmon MD [address] [place] [address] Surgeon Anesthesiology 01/14/20 documented as of this encounter
--- OUTSIDE RECORDS SUMMARY | 2025-02-16 02:50 | XMS_ITS | Encounter Summary ---
Author Organization [facility] Healthcare Address [address] [place] [address] Care Team Providers Care Air Export Coordinator Name Role Phone Skinny Hardy MD Primary Care Provider Kang Blackmon MD Unavailable [phone] Skinny Hardy MD Primary Care Provider Reason for Visit * Reason Onset Date Comments pre procedure call 03/08/2021 Encounter Details Date Type Department Care Team (Late st Contact Info) Description 03/08/2021 Telephone [facility] at the [place] [facility] [address] [facility] Advanced Medicine [address] [place], [place] [id number] Milton Sandoval MD PhD [address] [facility] [address] [facility] [address] [place] [address] pre procedure call Social History Tobacco Use [...] on file Legal Sex Female 12:59 PM CLINIC NURSE Gender Identity Female 04/26/2021 1:43 PM CLINIC NURSE Sexual Orientation Straight 04/26/2021 1: 43 PM CLINIC NURSE documented as of this encounter Plan of Treatment Not on file documented as of this encounter Goals Goal Patient Goal Type Associated Problems Recent Progress Patient-Stated? Author CCM Chronic Pain Care Plan Chronic Care Management No change(05/17 11:00 AM CLINIC NURSE) No Desirae Pearson RN Note: Problem: Chronic Pain Goals: 1. Minimize further functional decline 2. Maximize quality of life 3. Control pain Strategies: - Activity/exercise program recommendation - Conservative stepwise pain medicine strategy with multi-disciplinary approach - Recommend healthy lifestyle strategies and compensatory methods as needed documented as of this encounter Visit Diagnoses Not on filedocumented in this encounter Care Teams Air Export Coordinator Relationship Specialty Start Date End Date Skinny Hardy MD PCP - General Family Practice 12/08/17 06/24/23 Skinny Hardy MD [address] [facility] [place] [address] PCP - General Family Practice 06/25/23 Kang Blackmon MD [address] [place] [address] Surgeon Anesthesiology 01/14/20 documented as of this encounter
--- OUTSIDE RECORDS SUMMARY | 2025-02-16 02:50 | XMS_ITS | Encounter Summary ---
Author Organization [facility] Healthcare Address [address] [place] [address] Care Team Providers Care Cloth Piecer Name Role Phone Skinny Hardy MD Primary Care Provider Kang Blackmon MD Unavailable [phone] Skinny Hardy MD Primary Care Provider Reason for Visit * Reason Onset Date Comments Medications and PT 03/26/2021 Encounter Details Date Type Department Care Team (Late st Contact Info) Description 03/26/2021 Telephone [facility] Pain Center at the [place] [facility] [address] [facility] Advanced Medicine [address] [place] [address] Milton Sandoval MD PhD [address] [facility] [address] [facility] [address] [place] [address] Medications and PT Social History Tobacco Use [...] on file Legal Sex Female 12:59 PM STICKER MACHINE OPERATOR Gender Identity Female 04/26/2021 1:43 PM STICKER MACHINE OPERATOR Sexual Orientation Straight 04/26/2021 1: 43 PM STICKER MACHINE OPERATOR documented as of this encounter Miscellaneous Notes * Telephone Encounter - Andreas Knowles RN - 03/26/2021 2:24 PM STICKER MACHINE OPERATOR Current Annotated Refill Date: 03.26.2021 Next Refill [...] also like an external PT order for [facility] physical therapy in [place]. KER MACHINE OPERATOR * Telephone Encounter - Selene Martins - 03/26/2021 2:11 PM CST Patient needs refill of Hydrocodone. Patient also states that [facility] did not receive script for Amitriptyline. Please resend. Also patient wants outside referral for outside PT at [facility] Physical [facility] in [place]. KER MACHINE OPERATOR documented in this encounter Plan of Treatment Not on file documented as of this encounter Goals Goal Patient Goal Type Associated Problems Recent Progress Patient-Stated? Author CCM Chronic Pain Care Plan Chronic Care Management No change(05/17 11:00 AM STICKER MACHINE OPERATOR) No Desirae Pearson RN Note: Problem: Chronic Pain Goals: 1. Minimize further functional decline 2. Maximize quality of life 3. Control pain Strategies: - Activity/exercise program recommendation - Conservative stepwise pain medicine strategy with multi-disciplinary approach - Recommend healthy lifestyle strategies and compensatory methods as needed documented as of this encounter Visit Diagnoses Not on filedocumented in this encounter Care Teams Cloth Piecer Relationship Specialty Start Date End Date Skinny Hardy MD PCP - General Family Practice 12/08/17 06/24/23 Skinny Hardy MD [address] [place] [address] [place] [address] PCP - General Family Practice 06/25/23 Kang Blackmon MD [address] [place] [address] Surgeon Anesthesiology 01/14/20 documented as of this encounter
--- OUTSIDE RECORDS SUMMARY | 2025-02-16 02:50 | XMS_ITS | Encounter Summary ---
Author Organization [facility] Healthcare Address [address] [place] [address] Care Team Providers Care Criminalist Technician Name Role Phone Skinny Hardy MD Primary Care Provider Kang Blackmon MD Unavailable [phone] Skinny Hardy MD Primary Care Provider Reason for Visit * Reason Onset Date Comments Med Refill 10/04/2021 Encounter Details Date Type Department Care Team (Late st Contact Info) Description 10/04/2021 Telephone [facility] at the [place] [facility] [address] [facility] Advanced Medicine [address] [place] [address] Milton Sandoval MD PhD [address] [facility] [address] [facility] [address] [place] [address] Med Refill Social History Tobacco Use Types [...] on file Legal Sex Female 12:59 PM OCC MED PHYSICIAN Gender Identity Female 04/26/2021 1:43 PM OCC MED PHYSICIAN Sexual Orientation Straight 04/26/2021 1: 43 PM OCC MED PHYSICIAN documented as of this encounter Plan of Treatment Not on file documented as of this encounter Goals Goal Patient Goal Type Associated Problems Recent Progress Patient-Stated? Author CCM Chronic Pain Care Plan Chronic Care Management No change(05/17 11:00 AM OCC MED PHYSICIAN) No Desirae Pearson RN Note: Problem: Chronic Pain Goals: 1. Minimize further functional decline 2. Maximize quality of life 3. Control pain Strategies: - Activity/exercise program recommendation - Conservative stepwise pain medicine strategy with multi-disciplinary approach - Recommend healthy lifestyle strategies and compensatory methods as needed documented as of this encounter Visit Diagnoses Not on filedocumented in this encounter Care Teams Criminalist Technician Relationship Specialty Start Date End Date Skinny Hardy MD PCP - General Family Practice 12/08/17 06/24/23 Skinny Hardy MD [address] [facility] [place] [address] PCP - General Family Practice 06/25/23 Kang Blackmon MD [address] [place] [address] Surgeon Anesthesiology 01/14/20 documented as of this encounter
--- OUTSIDE RECORDS SUMMARY | 2025-02-16 02:51 | XMS_ITS | Clinical Summary ---
Author Organization [facility] Address [address] [place] [address] Phone Care Team Providers Care Dry Kiln Worker Name Role Phone Kang Blackmon MD Unavailable [phone] Skinny Hardy MD Primary Care Provider Allergies Active Allergy Reactions Criticality Noted Date Comments Penicillins Anaphylaxis High PCN allergy form filled out Sulfa (Sulfonamide Antibiotics) Anaphylaxis High Medications ascorbic acid (VITAMIN C) 500 mg tablet,chewabl eIndications:s upplement Take 1 tablet/chew tab (500 mg total) by mouth every morning Active calcium carbonate-humera min D3 (CALTRATE 600 + D) 1500 mg (600 mg elemental) -400 units per tabletIndicati ons:Prevention of Vitamin D Deficiency Take 1 tablet by mouth every morning Active multivitamin capsuleIndicat ions:Vitamin Deficiency Prevention Take 1 capsule by mouth every morning Active DULoxetine DR (CYMBALTA) 60 mg capsuleIndicat ions:Anxiety with Depression Take 1 capsule (60 mg total) by mouth 2 (two) times a day 8 Active rOPINIRole (REQUIP) 1 mg tabletIndicati ons:Restless Legs Syndrome Take 2 tablets (2 mg total) by mouth 2 (two) times a day 1 Active nitroglycerin (NITROSTAT) 0.[address] 1 tablet (0.3 mg total) under the tongue every 5 (five) minutes as needed 2 Active ferrous sulfate 325 mg (65 mg of elemental iron) tabletIndicati ons:Iron Deficiency Anemia Take 1 tablet (325 mg total) by mouth daily as needed Active atorvastatin (LIPITOR) 80 mg tablet 80 MG ORALLY EVERY DAY AT BEDTIME 2 Active collagen, hydrolysate, bovine, (collagen, hydr, bovine,, bulk,) 100 % powderIndicati ons:supplement Take 1 Scoop by mouth milling 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 before breakfast Active acetaminophen 500 mg capsuleIndicat ions:Pain Take 2 capsules (1,000 mg total) by mouth every 6 (six) hours 90 tablet 4 Active furosemide (LASIX) 20 mg tablet TAKE 1 TABLET BY MOUTH TWICE A DAY 180 tablet 4 Active Additional Information Patient taking differently:20 mg oralAs needed, Reported on 02/10/2025 aspirin 81 mg enteric coated tablet Take 1 tablet (81 mg total) by mouth daily Active empagliflozin (JARDIANCE) 10 mg tablet Take 1 tablet (10 mg total) by mouth daily 30 tablet 11 4 Active Entresto 24-26 mg tablet TAKE 1 TABLET BY MOUTH TWICE A DAY 60 tablet 11 5 Active topiramate (TOPAMAX) 50 mg tablet TAKE 1/2 TABLET BY MOUTH NIGHTLY 45 tablet 7 3 025 Discontinu ed(No longer taking - Do not display on AVS) metoprolol XL (TOPROL-XL) 25 mg extended release tablet Take 0.5 tablets (12.5 mg total) by mouth daily 45 tablet 3 5 025 Discontinu ed(Alterna te therapy) Active Problems Problem Noted Date Diagnosed Date Localized edema 08/01/2023 History of cardiomyopathy 08/01/2023 Right rotator cuff tear arthropathy 07/09/2023 Preoperative cardiovascular examination 05/20/19 Rotator cuff tear arthropathy of right shoulder 05/08/2023 Suprascapular mononeuropathy, right 09/25/2022 Chronic pain of both knees 07/23/2022 Shoulder arthritis 06/18/2022 Cluneal neuropathy 05/04/2022 Cardiomyopathy, ischemic 11/01/2021 Chronic heart failure with preserved ejection fr action 11/01/2021 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 11/01/2021 S/P coronary [...] (11/30/2019): Added automatically from request for surgery [id number] Encounter for examination fo r normal comparison or control in clinical research program 11/30/2019 Overview (11/30/2019): Added automatically from request for surgery [id number] Posterior vitreous detachment, left eye 09/24/19 18 Pseudophakia of both eyes 07/02/2017 Resolved Problems Problem Noted Date Diagnosed Date Resolved Date Hypotension due to drugs 01/24/2022 Age-related nuclear cataract of left eye 09/26/2017 10/23/2017 Overview (09/26/2017): Added automatically from request for surgery [id number] Encounters Date Type Department Care Team Description 02/10/2025 8:30 AM CDT Office Visit [facility] Cardiology [address] [facility] [address] [place] [phone] Mahin Pepper MD S/P coronary artery stent placement (Primary Dx); Coronary artery disease involving hoopa coronary artery of hoopa heart without angina pectoris; History of cardiomyopathy 02/10/2025 Orders Only [facility] Medical [facility] Cardiology [address] [facility] [address] [place], [place] [phone] Tre Reid MD Bradycardia (Primary Dx); PSVT (paroxysmal supraventricular tachycardia); SSS (sick sinus syndrome) ([facility]); Cardiac pacemaker 02/10/2025 Telephone [place] [address] [place] [phone] Mahin Pepper MD Prior Auth 02/03/2025 Telephone [place] [address] [place] [phone] Florecita Momin NP 02/03/2025 Results Follow-Up [place] [address] [place] [phone] Florecita Momin NP 48 HR Holter Monitor 01/28/2025 3:00 PM CDT Office Visit [place] [address] [place] [phone] Florecita Momin NP Bradycardia (Primary Dx); Coronary artery disease involving hoopa coronary artery of hoopa heart without angina pectoris 01/28/2025 2:45 PM CDT Ancillary Procedure [place] [address] [place] [phone] 11/19/2024 Telephone [place] [address] [place] [phone] Tre Reid MD from Last 3 Months Immunizations Immunization Administration Dates Next Due Influenza, Quad, Adjuvantated, Intramuscular 09/2019 Influenza, Trivalent, High D ose, Split, Preservative Free, Intramuscular 03/23/2019 Pneumococcal Conjugate PCV 13 03/23/2019 Surgical History Surgery Date Site/Laterality Comments TONSILLECTOMY PAROTIDECTOMY 04/28/2005 - 04/27/2006 CATARACT EXTRACTION 04/28/2017 - 04/27/2018 Left CATARACT EXTRACTION INTRAOCULAR LENS INSERTION COLONOSCOPY last 2018 ESOPHAGOGASTRODUODENOSCOPY 2021 BALLOON ANGIOPLASTY, ARTERY Left Medical [...] on file Legal Sex Female 12:59 PM FINISHED CLOTH CHECKER Gender Identity Female 04/26/2021 1:43 PM FINISHED CLOTH CHECKER Sexual Orientation Straight 04/26/2021 1: 43 PM FINISHED CLOTH CHECKER Obstetrics History Last Filed Vital Signs Vital Sign Reading Time Taken Comments Blood Pressure 150/70 02/10/2025 8:32 AM CDT Pulse 68 02/10/2025 8:32 AM CDT Temperature 36.5 C (97.7 F) 07/10/2023 8:10 AM CDT Respiratory Rate 16 08/01/2023 11:26 AM CDT Oxygen Saturation 98% 02/10/2025 8:32 AM CDT Inhaled Oxygen Concentration - - Weight 95.3 kg (210 lb 3.2 oz) 02/10/2025 8:32 A M CDT Height 157.5 cm (5' 2) 02/10/2025 8:32 AM CDT Body Mass Index 38.45 02/10/2025 8:32 AM CDT Plan of Treatment Health Maintenance Due Date Last Done Comments Depression Screening 1945 Hepatitis C Screening 1945 Osteoporosis Screening-Bone Density Scan 1945 Hepatitis B Screening 12/17/1963 Well Visit 65+ 2010 Fall Risk Assessment 07/09/2024 07/10/2023 Covid-19 Vaccine (2024-2 6 season) 2024 04/17/2021, 07/27/2020, 07/06/2020 Influenza Vaccine (#1) 2024 , 04/12/2020, 01/02/2020, Additional history exists DTaP/Tdap/Td Vaccine (3 - Td or Tdap) 06/18/2033 06/18/2023, 04/08/2023 Pneumococcal vaccine 65+ Completed 04/12/2020, 02/27 Zoster Vaccine Completed 06/18/2023, 02/19/2023 Goals Goal Patient Goal Type Associated Problems Recent Progress Patient-Stated? Author CCM Chronic Pain Care Plan Chronic Care Management No change(05/17 11:00 AM FINISHED CLOTH CHECKER) Desirae Silverman RN Note: Problem: Chronic Pain Goals: 1. Minimize further functional decline 2. Maximize quality of life 3. Control pain Strategies: - Activity/exercise program recommendation - Conservative stepwise pain medicine strategy with multi-disciplinary approach - Recommend healthy lifestyle strategies and compensatory methods as needed Medical Devices Implanted Type Area Dormitory Keeper Device Identifier Shelf Expiration Date Model / Serial / Lot Deangelo [employer] Acrysof Iq Natural Stableforce Acrysert 6mm 13mm 1 Piece Foldable - [id number] - [id number] Implanted:Qty: 1 on 10/06/2017 by Maciel Alvarez MD at [facility] Right: Eye [employer] 06/25/2022 [id number].[id number] 0 5 / [id number] [facility] / [employer] Resolute [place] 3.5mm 2.1-2.7fr 26mm 140cm Rapid Exchange [id number] - [id number] Implanted:Qty: 1 on 10/19/2021 by Tre Reid MD at [facility] [employer] 05/29/2024 MARTY [id number] / / [id number] [employer] Resolute [place] 4mm 2.1-2.7fr 12mm 140cm Rapid Exchange Radiopaque [id number] - [id number] Implanted:Qty: 1 on 10/19/2021 by Tre Reid MD at [facility] [employer] 11/08/2023 MARTY [id number] / / [id number] [employer]osure Inc Mynx Control 6-7fr 2 Mode Balloon Catheter Sealant Lock Syringe [id number] - [id number] Implanted:Qty: 1 on 09/06/2022 by Tre Reid MD at [facility] [employer] 02/26/2024 [id number] / / [id number] [employer] Aequalis 4.5mm 38mm Lock Multidirectional Self Tap Shoulder Screw Latex Free [id number] - [id number] Implanted:Qty: 1 on 07/09/2023 by Enrique Russell MD at [facility] Right: Shoulder [employer] [id number] / / [employer] Insert Perform 10 Deg Ret [id number] - [id number] - [id number] Implanted:Qty: 1 on 07/09/2023 by Enrique Russell MD at [facility] Right: Shoulder [employer] 07/12/2027 [id number] / [id number] / [employer] Stem Perform Sz 2 Plus Humeral Long Dwx2pl - [id number] - [id number] Implanted:Qty: 1 on 07/09/2023 by Enrique Russell MD at [facility] Right: Shoulder [employer] [id number] / [id number] / [employer] Aequalis 25mm Shoulder Long Post Baseplate Glenoid Morejon [id number] - [id number] - [id number] Implanted:Qty: 1 on 07/09/2023 by Enrique Russell MD at [facility] Right: Shoulder [employer] 11/07/2027 [id number] / [id number] / [employer] Aequalis 36mm Reverse Center Shoulder Sphere Glenoid Cocr 25mm Ixo991 - [id number] - [id number] Implanted:Qty: 1 on 07/09/2023 by Enrique Russell MD at [facility] Right: Shoulder [employer] 08/16/2026 [id number] / [id number] / [employer] Aequalis Reversed 4.5mm 23mm Compression Glenoid Screw Baseplate [id number] - [id number] Implanted:Qty: 1 on 07/09/2023 by Enrique Russell MD at [facility] Right: Shoulder [employer] [id number] / / [employer] Aequalis Reversed 4.5mm 38mm Compression Glenoid Screw Baseplate [id number] - [id number] Implanted:Qty: 1 on 07/09/2023 by Enrique Russell MD at [facility] Right: Shoulder [employer] [id number] / / [employer] Aequalis 4.5mm 35mm Lock Multidirectional Self Tap Shoulder Screw Latex Free [id number] - [id number] Implanted:Qty: 1 on 07/09/2023 by Enrique Russell MD at [facility] Right: Shoulder [employer] [id number] / / Procedures Procedure Name Priority Date/Time Associated Diagnosis Comments HOLTER MONITOR 48 HR Routine 02/01/2025 1:38 PM CDT Bradycardia ELECTROCARDIOGRAM REPORT Routine 025 3:03 PM CDT Bradycardia from Last 3 Months Results * 48 HR Holter Monitor (02/01/2025 1:38 PM CDT) Anatomical Region Laterality Modality Electrocardiogra phy Narrative 02/03/2025 1:01 PM CDT AMBULATORY PLANT CHANGER REPORT Patient Name: Desirae José Date of : 1945 Requesting Physician: Dr. Franklin Hernandez Date of interpretation: 02/03/25 Type of monitor : 48 hour Holter monitor Date of the study/Enrollment period: 01/28/2025 through 01/30/2025 Indication: Bradycardia Quality of the study: Good Interpretation: Total of 1 day 23 hours and 43 minutes of diagnostic time Sinus rhythm heart rate variability between 24 and 132 beats per minute with an average heart rate of 50 beats per minute. Five pauses are noted with the longest pause being for 4.5 seconds at 1:28 a.m. on 01/30/2025 Low frequency ventricular ectopy totaling 616 beats which consisted of 614 isolated PVCs and 1 ventricular couplet Frequent supraventricular ectopy totaling 23,250 beats which 17% ectopic burden. This did consisted of 1 run of PSVT at a rate of 132 beats per minute which lasted for 13.6 seconds. Two episodes of lightheadedness were noted. First episode of lightheadedness was associated with sinus bradycardia heart rate of 51 beats per minute. Second episode was marked sinus bradycardia with heart rate of 34 beats per minute. Minimum heart rate of 24 beats per minute occurred at 7:55 a.m. on 01/29/2025 A junctional escape rhythm was also noted with a heart rate of 33 beats per minute. Conclusions: Underlying sinus rhythm/sinus bradycardia with average heart rate of 50 beats per minute Symptomatic sinus bradycardia with symptoms of lightheadedness correlated to heart rates of 34 and 51 beats per minute respectively 5 pauses of greater than 3 seconds with longest pause being 4.5 seconds Junctional escape rhythm was also seen with heart rate around 30 beats per minute Frequent supraventricular ectopy (17% burden) and infrequent ventricular ectopy (less than 1% burden) Voice recognition software was used to complete this document, therefore, customer greeter variances may occur. Ge Tidwell MD, [facility] 02/03/25 Procedure Note Ge Tidwell MD - 02/03/2025 AMBULATORY PLANT CHANGER REPORT Patient Name: Desirae José Date of : 1945 Requesting Physician: Dr. Franklin Hernandez Date of interpretation: 02/03/25 Type of monitor : 48 hour Holter monitor Date of the study/Enrollment period: 01/28/2025 through 01/30/2025 Indication: Bradycardia Quality of the study: Good Interpretation: Total of 1 day 23 hours and 43 minutes of diagnostic time Sinus rhythm heart rate variability between 24 and 132 beats per minutewith an average heart rate of 50 beats per minute. Five pauses are noted with the longest pause being for 4.5 seconds at 1:28a.m. on 01/30/2025 Low frequency ventricular ectopy totaling 616 beats which consisted of 614isolated PVCs and 1 ventricular couplet Frequent supraventricular ectopy totaling 23,250 beats which 17% ectopicburden. This did consisted of 1 run of PSVT at a rate of 132 beats perminute which lasted for 13.6 seconds. Two episodes of lightheadedness were noted. First episode oflightheadedness was associated with sinus bradycardia heart rate of 51beats per minute. Second episode was marked sinus bradycardia with heartrate of 34 beats per minute. Minimum heart rate of 24 beats per minute occurred at 7:55 a.m. on01/29/2025 A junctional escape rhythm was also noted with a heart rate of 33 beatsper minute. Conclusions: Underlying sinus rhythm/sinus bradycardia with average heart rate of 50beats per minute Symptomatic sinus bradycardia with symptoms of lightheadedness correlatedto heart rates of 34 and 51 beats per minute respectively 5 pauses of greater than 3 seconds with longest pause being 4.5 seconds Junctional escape rhythm was also seen with heart rate around 30 beats perminute Frequent supraventricular ectopy (17% burden) and infrequent ventricularectopy (less than 1% burden) Voice recognition software was used to complete this document, therefore,customer greeter variances may occur. Ge Tidwell MD, [facility] 02/03/25 Florecita Momin NP [facility] Final Result * Electrocardiogram Report (01/28/2025 3:03 PM CDT) Florecita Momin NP ECG ORDERABLES Final Res ult from Last 3 Months Insurance [facility] Advance Directives For more information, please contact: [phone] * Full Code (Latest Code Status on File) Date Activated Date Inactivated Comments 07/09/2023 1:19 PM 07/10/2023 6:33 PM * Full Code Date Activated Date Inactivated Comments 09/25/2017 2:43 PM 10/06/2017 7:09 AM Care Teams Dry Kiln Worker Relationship Specialty Start Date End Date Skinny Hardy MD [facility] [facility] [place] [address] PCP - General Family Practice 06/25/23 Kang Blackmon MD [address] [place] [address] Surgeon Anesthesiology 01/14/20
--- OUTSIDE RECORDS SUMMARY | 2025-02-16 02:51 | XMS_ITS | Encounter Summary ---
Author Organization [facility] Healthcare Address [address] [place] [address] Care Team Providers Care Recycling Assistant Name Role Phone Kang Blackmon MD Unavailable [phone] Skinny Hardy MD Primary Care Provider Encounter Details Date Type Department Care Team (Late st Contact Info) Description 02/03/2025 Results Follow-Up [facility] Medical Group Cardiology [address] [facility] [address] [place] [phone] Florecita Momin NP [address] [facility] [address] [place] [address] 48 HR Holter Monitor Social History Tobacco Use Types Packs/Day Years [...] on file Legal Sex Female 12:59 PM NURSING EXECUTIVE Gender Identity Female 04/26/2021 1:43 PM NURSING EXECUTIVE Sexual Orientation Straight 04/26/2021 1: 43 PM NURSING EXECUTIVE documented as of this encounter Plan of Treatment Not on file documented as of this encounter Goals Goal Patient Goal Type Associated Problems Recent Progress Patient-Stated? Author CCM Chronic Pain Care Plan Chronic Care Management No change(05/17 11:00 AM NURSING EXECUTIVE) No Desirae Pearson RN Note: Problem: Chronic Pain Goals: 1. Minimize further functional decline 2. Maximize quality of life 3. Control pain Strategies: - Activity/exercise program recommendation - Conservative stepwise pain medicine strategy with multi-disciplinary approach - Recommend healthy lifestyle strategies and compensatory methods as needed documented as of this encounter Visit Diagnoses Not on filedocumented in this encounter Care Teams Recycling Assistant Relationship Specialty Start Date End Date Skinny Hardy MD [address] [facility] [place] [address] PCP - General Family Practice 06/25/23 Kang Blackmon MD [address] [place] [address] Surgeon Anesthesiology 01/14/20 documented as of this encounter
--- OUTSIDE RECORDS SUMMARY | 2025-02-16 02:51 | XMS_ITS | Encounter Summary ---
Author Organization [facility] Healthcare Address [address] [place] [address] Care Team Providers Care Auto Wrecker Name Role Phone Skinny Hardy MD Primary Care Provider Kang Blackmon MD Unavailable [phone] Skinny Hardy MD Primary Care Provider Encounter Details Date Type Department Care Team (Late st Contact Info) Description 09/26/2020 Telephone [facility] [place] [facility] [address] [facility] [address] [place], [place] [phone] Milton Sandoval MD PhD [address] [facility] [address] [facility] [address] [place] [address] Social History Tobacco Use Types Packs/Day Years [...] on file Legal Sex Female 12:59 PM BRAND MARKETING MANAGER Gender Identity Female 04/26/2021 1:43 PM BRAND MARKETING MANAGER Sexual Orientation Straight 04/26/2021 1: 43 PM BRAND MARKETING MANAGER documented as of this encounter Plan of Treatment Not on file documented as of this encounter Goals Goal Patient Goal Type Associated Problems Recent Progress Patient-Stated? Author CCM Chronic Pain Care Plan Chronic Care Management No change(05/17 11:00 AM BRAND MARKETING MANAGER) Desirae Silverman RN Note: Problem: Chronic Pain Goals: 1. Minimize further functional decline 2. Maximize quality of life 3. Control pain Strategies: - Activity/exercise program recommendation - Conservative stepwise pain medicine strategy with multi-disciplinary approach - Recommend healthy lifestyle strategies and compensatory methods as needed documented as of this encounter Visit Diagnoses Not on filedocumented in this encounter Care Teams Auto Wrecker Relationship Specialty Start Date End Date Skinny Hardy MD PCP - General Family Practice 12/08/17 06/24/23 Skinny Hardy MD [address] [place] [address] [place] [address] PCP - General Family Practice 06/25/23 Kang Blackmon MD [address] [place] [address] Surgeon Anesthesiology 01/14/20 documented as of this encounter
--- OUTSIDE RECORDS SUMMARY | 2025-02-16 02:51 | XMS_ITS | Patient Health Record ---
Author Organization [facility] Address [address] [place] [address] PATTI Gama [id number] Care Team Providers Care Right Of Way Supervisor Name Role Phone Hayley HUTSON, Skinny Primary Care Provider Unavailable Kevin Galeano Unavailable [phone] ALLERGIES Allergen (clinical drug ingredient) Drug/Non Drug Allergy documented on EMR Reaction Allergy Type Onset Date Status Penicillin anaphylaxis Drug Allergy Acti ve Substance with sulfonamide structure and antibacterial mechanism of action (substance) Sulfa Antibiotics anaphylaxis Drug Allergy Active REASON FOR REFERRAL No Information MEDICATIONS Medication SIG (Take, Route, Frequency, Duration) [...] BY MOUTH DAILY Oral for 90 Active PROBLEMS Problem Type ICD Code Onset Dates Problem Status W/U Status Risk SNOMED Code Notes Problem Morbid (severe) obesity due to excess calories (E66.01) Active confirmed Morbid obesity (disorder) (910548643) Problem Fear of injections and transfusions (F40.231) Active confirmed Fear of medical treatment (050234023) Problem Chronic pain syndrome (G89.4) Active confirmed Chronic rj n syndrome (686715918) Problem Spondylolisthesis , lumbar region (M43.16) Active confirmed Acquired spondylolisthesis (726455108) Problem Sacroiliitis, not elsewhere classified (M46.1) Active confirmed Solitary sacroiliitis (733791296) Problem Spondylosis without myelopathy or radiculopathy, lumbar region (M47.816) Active confirmed Lumbosacral spondylosis without myelopathy (43988363) Problem Spondylosis without myelopathy or radiculopathy, lumbosacral region (M47.817) Active confirmed Lumbosacral spondylosis without myelopathy (disorder) (25790967) Problem Other intervertebral disc degeneration, 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 confirmed Degeneration of lumbar intervertebral disc (86105396) Problem Radiculopathy, lumbar region (M54.16) Active confirmed Lumbar radiculopathy (321714908) L4/5 Problem Radiculopathy, lumbosacral region (M54.17) Active confirmed Lumbosacral radiculopathy (2624470) Problem Osseous and subluxation stenosis of intervertebral foramina of lumbar region (M99.63) Active confirmed Spinal stenosis of lumbar region (44632032) Problem nursing home (current) use of anticoagulants (Z79.01) Active confirmed Long-term curre nt use of anticoagulant (442750301) Problem nursing home (current) use of aspirin (Z79.82) Active confirmed Long-term c urrent use of antiplatelet drug (913347697018365) Problem Spinal stenosis, lumbar region with neurogenic claudication (M48.062) Active confirmed Neurogenic claudication (899534075) Problem Lumbar radiculopathy (M54.16) Active confirmed Lumbar radiculopathy (265944579) VITAL SIGNS Heart Rate 72 /min 08/13/2024 Temperature 96.4 degrees Fahrenheit 03/10/2024 Respiratory Rate 16 /min 08/13/2024 Oximetry 97 % 03/03/2024 Blood pressure diastolic 82 mm Hg 08/13/2024 Height 5 ft 2 in in 08/13/2024 Blood pressure systolic 126 mm Hg 08/13/2024 Weight 188 lbs 08/13/2024 BMI 34.38 kg/m2 08/13/2024 Encounters Encounter Location Date Provider Diagnosis [facility] [address] [place] [phone] 02/18/2024 Kevin Stkodak Lumbar radiculopathy M54.16 ; Spinal stenosis, lumbar region with neurogenic claudication M48.062 ; Osseous and subluxation stenosis of intervertebral foramina of lumbar region M99.63 ; Spondylolisthesis, lumbar region M43.16 ; Other intervertebral disc degeneration, lumbar region M51.36 ; Spondylosis without myelopathy or radiculopathy, lumbar region M47.816 ; Spondylosis without myelopathy or radiculopathy, lumbosacral region M47.817 ; Sacroiliitis, not elsewhere classified M46.1 ; intermediate accountant (current) use of aspirin Z79.82 ; Chronic pain syndrome G89.4 ; Morbid (severe) obesity due to excess calories E66.01 ; nursing home (current) use of anticoagulants Z79.01 ; Drug induced constipation K59.03 and Fear of injections and transfusions F40.231 [facility] [address] [place] [phone] 02/24/2024 Kevin Galeano [facility] [address] [place] [phone] 03/03/2024 Kevin Stkodak Lumbar radiculopathy M54.16 ; Radiculopathy, lumbosacral region M54.17 and Chronic pain syndrome G89.4 [facility] [address] [place] [phone] 03/04/2024 Kevin Stynkia [facility] [address] [place] [phone] 03/10/2024 Kevin Styndaltonick Lumbar radiculopathy M54.16 ; Spinal stenosis, lumbar region with neurogenic claudication M48.062 ; Osseous and subluxation stenosis of intervertebral foramina of lumbar region M99.63 ; Spondylolisthesis, lumbar region M43.16 ; Other intervertebral disc degeneration, lumbar region M51.36 ; Spondylosis without myelopathy or radiculopathy, lumbar region M47.816 ; Spondylosis without myelopathy or radiculopathy, lumbosacral region M47.817 ; Sacroiliitis, not elsewhere classified M46.1 ; intermediate accountant (current) use of aspirin Z79.82 ; Chronic pain syndrome G89.4 ; Morbid (severe) obesity due to excess calories E66.01 ; intermediate accountant (current) use of anticoagulants Z79.01 ; Drug induced constipation K59.03 and Radiculopathy, lumbar region M54.16 [facility] [address] [place] [phone] 03/19/2024 Kevin Stkodak Lumbar radiculopathy M54.16 ; Sacroiliitis, not elsewhere classified M46.1 ; Spinal stenosis, lumbar region with neurogenic claudication M48.062 ; Osseous and subluxation stenosis of intervertebral foramina of lumbar region M99.63 ; Spondylolisthesis, lumbar region M43.16 ; Other intervertebral disc degeneration, lumbar region M51.36 ; Spondylosis without myelopathy or radiculopathy, lumbar region M47.816 ; Spondylosis without myelopathy or radiculopathy, lumbosacral region M47.817 ; nursing home (current) use of aspirin Z79.82 ; Chronic pain syndrome G89.4 ; Morbid (severe) obesity due to excess calories E66.01 ; intermediate accountant (current) use of anticoagulants Z79.01 ; Drug induced constipation K59.03 and Radiculopathy, lumbar region M54.16 [facility] [address] [place] [phone] 03/24/2024 Kevin Galeano Sacroiliitis, not elsewhere classified M46.1 [...] myelopathy or radiculopathy, lumbosacral region M47.817 ; intermediate accountant (current) use of aspirin Z79.82 ; Chronic pain syndrome G89.4 ; Morbid (severe) obesity due to excess calories E66.01 ; intermediate accountant (current) use of anticoagulants Z79.01 and Drug induced constipation K59.03 [facility] [address] [facility] [place] [address] 03/29/2024 Kevin Stynowick Sacroiliitis, not elsewhere classified M46.1 [facility] [address] [facility] [place] [address] 04/02/2024 Kevin Stynowick [facility] [address] [facility] [place] [address] 04/02/2024 Kevin Stynowick Sacroiliitis, not elsewhere classified M46.1 [facility] [address] [place] [address] 04/23/2024 Kevin Stynowick Sacroiliitis, not elsewhere classified M46.1 ; Radiculopathy, [...] myelopathy or radiculopathy, lumbosacral region M47.817 ; intermediate accountant (current) use of aspirin Z79.82 ; Chronic pain syndrome G89.4 ; Morbid (severe) obesity due to excess calories E66.01 ; nursing home (current) use of anticoagulants Z79.01 and Drug induced constipation K59.03 [facility] [address] [facility] [place] [address] 05/07/2024 Kevin Stynowick Sacroiliitis, not elsewhere classified M46.1 ; Radiculopathy, [...] myelopathy or radiculopathy, lumbosacral region M47.817 ; intermediate accountant (current) use of aspirin Z79.82 ; Chronic pain syndrome G89.4 ; Morbid (severe) obesity due to excess calories E66.01 ; nursing home (current) use of anticoagulants Z79.01 and Drug induced constipation K59.03 [facility] [address] [place] [address] 05/17/2024 Kevin Stynowick Sacroiliitis, not elsewhere classified M46.1 ; Radiculopathy, [...] myelopathy or radiculopathy, lumbosacral region M47.817 ; nursing home (current) use of aspirin Z79.82 ; Chronic pain syndrome G89.4 ; Morbid (severe) obesity due to excess calories E66.01 ; intermediate accountant (current) use of anticoagulants Z79.01 and Drug induced constipation K59.03 [facility] [address] [place] [address] 07/16/2024 Kevin Stynowick Sacroiliitis, not elsewhere classified M46.1 [facility] [address] [place] [phone] 07/23/2024 Kevin Stynowick Sacroiliitis, not elsewhere classified M46.1 [facility] [address] [place] [phone] 08/06/2024 Kevin Stynowick Sacroiliitis, not elsewhere classified M46.1 ; Radiculopathy, [...] myelopathy or radiculopathy, lumbosacral region M47.817 ; nursing home (current) use of aspirin Z79.82 ; Chronic pain syndrome G89.4 ; Morbid (severe) obesity due to excess calories E66.01 ; nursing home (current) use of anticoagulants Z79.01 and Drug induced constipation K59.03 [facility] [address] [place] [phone] 08/13/2024 Kevin Stynowick Sacroiliitis, not elsewhere classified M46.1 ; Radiculopathy, [...] myelopathy or radiculopathy, lumbosacral region M47.817 ; nursing home (current) use of aspirin Z79.82 ; Chronic pain syndrome G89.4 ; Morbid (severe) obesity due to excess calories E66.01 ; nursing home (current) use of anticoagulants Z79.01 and Drug induced constipation K59.03 [facility] [address] [place] [phone] 09/03/2024 Kevin Stynowick Radiculopathy, lumba r region M54.16 ASSESSMENTS Encounter Date Diagnosis Assessment Notes Treatment Notes Treatment Clinical Notes Section Notes 09/03/2024 Radiculopathy, lumbar region (ICD-10 - M54.16) 08/13/2024 Radiculopathy, lumbosacral region (ICD-10 - M54.17) [...] agreeable to proceeding at this time. 08/13/2024 Sacroiliitis, not elsewhere classified (ICD-10 - M46.1) 08/06/2024 Sacroiliitis, not elsewhere classified (ICD-10 - M46.1) 07/23/2024 Sacroiliitis, not elsewhere classified (ICD-10 - M46.1) 07/16/2024 Sacroiliitis, not elsewhere classified (ICD-10 - M46.1) 05/17/2024 Radiculopathy, lumbar region (ICD-10 - M54.16) 05/17/2024 Sacroiliitis, not elsewhere classified (ICD-10 - [...] is agreeable to proceeding at this time. 05/07/2024 Sacroiliitis, not elsewhere classified (ICD-10 - M46.1) 04/23/2024 Sacroiliitis, not elsewhere classified (ICD-10 - M46.1) 04/02/2024 Sacroiliitis, not elsewhere classified (ICD-10 - M46.1) 03/29/2024 Sacroiliitis, not elsewhere classified (ICD-10 - M46.1) 03/24/2024 Radiculopathy, lumbar region (ICD-10 - M54.16) 03/24/2024 Sacroiliitis, not elsewhere classified (ICD-10 - M46.1) The patient is scheduled for a bilateral sacroiliac joint injection.next week. The risks of this procedure including pain, bleeding, infection, insomnia, hyperglycemia, hair loss, muscle atrophy, skin depigmentation, weight gain, fluid retention, adrenal suppression, immunosuppression, osteoporosis resulting in fractures, avascular necrosis of the hip, cataracts, bleeding gastric ulcer, worsening pain and failure to relieve pain were discussed and the patient is agreeable to proceeding at this time. 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 Physical therapy order for low back and lower extremity pain placed at today's visit. Patient given copy of the order 03/19/2024 Lumbar radiculopathy (ICD-10 - M54.16) 03/19/2024 Sacroiliitis, not elsewhere classified (ICD-10 - M46.1) [...] is agreeable to proceeding at this time. 03/10/2024 Lumbar radiculopathy (ICD-10 - M54.16) The patient was instructed to continue avoiding submerging in the water, however she is advised to continue daily showers. Additionally, the patient was educated to contact the office in case of fever, bleeding or significant drainage from postoperative incisions. She verbalizes good understanding of that. She currently denies a need for any injections or interventions at this time. She would like to return to the office in 1 week for follow-up and reevaluation of her pain at that time. 03/10/2024 Spinal stenosis, lumbar region with neurogenic claudication (ICD-10 - M48.062) 03/03/2024 Lumbar radiculopathy (ICD-10 - M54.16) 03/03/2024 Radiculopathy, lumbosacral region (ICD-10 - M54.17) 02/18/2024 Lumbar radiculopathy (ICD-10 - M54.16) Injection sites are clean, dry and intact. Both spinal cord stimulator leads were removed without resistance and were completely intact. Neosporin ointment and Band-Aids were applied at the injection sites Schedule a permanent spinal cord stimulator implantation. The risks of this procedure including pain, bleeding, infection, epidural hematoma, spinal headache, persistent spinal fluid leak, nerve damage, spinal cord injury, paralysis, worsening pain and failure to relieve pain were discussed and the patient is agreeable to proceeding at this time. The inherent risks of anesthesia including airway obstruction resulting in cardiopulmonary arrest and were also discussed and the patient is agreeable to proceeding at this time 02/18/2024 Spinal stenosis, lumbar region with neurogenic claudication (ICD-10 - M48.062) 03/19/2024 Spinal stenosis, lumbar region with neurogenic claudication (ICD-10 - M48.062) 08/13/2024 Radiculopathy, lumbar region (ICD-10 - M54.16) 03/24/2024 Lumbar radiculopathy (ICD-10 - M54.16) 03/10/2024 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.63) 04/23/2024 Radiculopathy, lumbar region (ICD-10 - M54.16) 03/03/2024 Chronic pain syndrome (ICD-10 - G89.4) 02/18/2024 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.63) 08/06/2024 Radiculopathy, lumbar region (ICD-10 - M54.16) 05/07/2024 Radiculopathy, lumbar region (ICD-10 - M54.16) 05/17/2024 Lumbar radiculopathy (ICD-10 - M54.16) 03/19/2024 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.63) 03/24/2024 Spinal stenosis, lumbar region with neurogenic claudication (ICD-10 - M48.062) 03/10/2024 Spondylolisthesis, lumbar region (ICD-10 - M43.16) 04/23/2024 Lumbar radiculopathy (ICD-10 - M54.16) 02/18/2024 Spondylolisthesis, lumbar region (ICD-10 - M43.16) 05/07/2024 Lumbar radiculopathy (ICD-10 - M54.16) 05/17/2024 Spinal stenosis, lumbar region with neurogenic claudication (ICD-10 - M48.062) 08/13/2024 Lumbar radiculopathy (ICD-10 - M54.16) 08/06/2024 Lumbar radiculopathy (ICD-10 - M54.16) 05/17/2024 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.63) 05/07/2024 Spinal stenosis, lumbar region with neurogenic claudication (ICD-10 - M48.062) 08/13/2024 Spinal stenosis, lumbar region with neurogenic claudication (ICD-10 - M48.062) 03/19/2024 Spondylolisthesis, lumbar region (ICD-10 - M43.16) 03/24/2024 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.63) 02/18/2024 Other intervertebral disc degeneration, lumbar region (ICD-10 - M51.36) 04/23/2024 Spinal stenosis, lumbar region with neurogenic claudication (ICD-10 - M48.062) 08/06/2024 Spinal stenosis, lumbar region with neurogenic claudication (ICD-10 - M48.062) 03/10/2024 Other intervertebral disc degeneration, lumbar region (ICD-10 - M51.36) 03/24/2024 Spondylolisthesis, lumbar region (ICD-10 - M43.16) 03/19/2024 Other intervertebral disc degeneration, lumbar region (ICD-10 - M51.36) 05/17/2024 Spondylolisthesis, lumbar region (ICD-10 - M43.16) 05/07/2024 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.63) 02/18/2024 Spondylosis without myelopathy or radiculopathy, lumbar region (ICD-10 - M47.816) 08/06/2024 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.63) 04/23/2024 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.63) 08/13/2024 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.63) 03/10/2024 Spondylosis without myelopathy or radiculopathy, lumbar region (ICD-10 - M47.816) 03/24/2024 Other intervertebral disc degeneration, lumbar region (ICD-10 - M51.36) 03/19/2024 Spondylosis without myelopathy or radiculopathy, lumbar region (ICD-10 - M47.816) 04/23/2024 Spondylolisthesis, lumbar region (ICD-10 - M43.16) 03/10/2024 Spondylosis without myelopathy or radiculopathy, lumbosacral region (ICD-10 - M47.817) 08/13/2024 Spondylolisthesis, lumbar region (ICD-10 - M43.16) 05/07/2024 Spondylolisthesis, lumbar region (ICD-10 - M43.16) 02/18/2024 Spondylosis without myelopathy or radiculopathy, lumbosacral region (ICD-10 - M47.817) 08/06/2024 Spondylolisthesis, lumbar region (ICD-10 - M43.16) 05/17/2024 Other intervertebral disc degeneration, lumbar region (ICD-10 - M51.36) 04/23/2024 Other intervertebral disc degeneration, lumbar region (ICD-10 - M51.36) 08/13/2024 Other intervertebral disc degeneration, lumbar region (ICD-10 - M51.36) 05/07/2024 Other intervertebral disc degeneration, lumbar region (ICD-10 - M51.36) 08/06/2024 Other intervertebral disc degeneration, lumbar region (ICD-10 - M51.36) 03/24/2024 Spondylosis without myelopathy or radiculopathy, lumbar region (ICD-10 - M47.816) 05/17/2024 Spondylosis without myelopathy or radiculopathy, lumbar region (ICD-10 - M47.816) 03/19/2024 Spondylosis without myelopathy or radiculopathy, lumbosacral region (ICD-10 - M47.817) 02/18/2024 Sacroiliitis, not elsewhere classified (ICD-10 - M46.1) 03/10/2024 Sacroiliitis, not elsewhere classified (ICD-10 - M46.1) 03/19/2024 intermediate accountant (current) use of aspirin (ICD-10 - Z79.82) 03/24/2024 Spondylosis without myelopathy or radiculopathy, lumbosacral region (ICD-10 - M47.817) 05/17/2024 Spondylosis without myelopathy or radiculopathy, lumbosacral region (ICD-10 - M47.817) 08/06/2024 Spondylosis without myelopathy or radiculopathy, lumbar region (ICD-10 - M47.816) 03/10/2024 intermediate accountant (current) use of aspirin (ICD-10 - Z79.82) 08/13/2024 Spondylosis without myelopathy or radiculopathy, lumbar region (ICD-10 - M47.816) 04/23/2024 Spondylosis without myelopathy or radiculopathy, lumbar region (ICD-10 - M47.816) 05/07/2024 Spondylosis without myelopathy or radiculopathy, lumbar region (ICD-10 - M47.816) 02/18/2024 nursing home (current) use of aspirin (ICD-10 - Z79.82) 05/17/2024 nursing home (current) use of aspirin (ICD-10 - Z79.82) 08/06/2024 Spondylosis without myelopathy or radiculopathy, lumbosacral region (ICD-10 - M47.817) 02/18/2024 Chronic pain syndrome (ICD-10 - G89.4) The patient was given a handout explaining the preoperative bathing instructions 05/07/2024 Spondylosis without myelopathy or radiculopathy, lumbosacral region (ICD-10 - M47.817) 03/10/2024 Chronic pain syndrome (ICD-10 - G89.4) 04/23/2024 Spondylosis without myelopathy or radiculopathy, lumbosacral region (ICD-10 - M47.817) 08/13/2024 Spondylosis without myelopathy or radiculopathy, lumbosacral region (ICD-10 - M47.817) 03/24/2024 intermediate accountant (current) use of aspirin (ICD-10 - Z79.82) 03/19/2024 Chronic pain syndrome (ICD-10 - G89.4) 04/23/2024 intermediate accountant (current) use of aspirin (ICD-10 - Z79.82) 08/06/2024 nursing home (current) use of aspirin (ICD-10 - Z79.82) 03/10/2024 Morbid (severe) obesity due to excess calories (ICD-10 - E66.01) 05/07/2024 nursing home (current) use of aspirin (ICD-10 - Z79.82) 03/19/2024 Morbid (severe) obesity due to excess calories (ICD-10 - E66.01) 02/18/2024 Morbid (severe) obesity due to excess calories (ICD-10 - E66.01) 05/17/2024 Chronic pain syndrome (ICD-10 - G89.4) 08/13/2024 nursing home (current) use of aspirin (ICD-10 - Z79.82) 03/24/2024 Chronic pain syndrome (ICD-10 - G89.4) 08/13/2024 Chronic pain syndrome (ICD-10 - G89.4) 08/06/2024 Chronic pain syndrome (ICD-10 - G89.4) 05/17/2024 Morbid (severe) obesity due to excess calories (ICD-10 - E66.01) 02/18/2024 nursing home (current) use of anticoagulants (ICD-10 - Z79.01) The patient was instructed to discontinue aspirin for 6 days prior to the procedure. I made the patient aware that she will be at an increased risk for a thromboembolic event during this time and she is willing to accept this risk. The patient was instructed to notify her primary care physician and/or butcher assistant to obtain clearance prior to discontinuing this medication. 05/07/2024 Chronic pain syndrome (ICD-10 - G89.4) 04/23/2024 Chronic pain syndrome (ICD-10 - G89.4) 03/10/2024 nursing home (current) use of anticoagulants (ICD-10 - Z79.01) 03/19/2024 intermediate accountant (current) use of anticoagulants (ICD-10 - Z79.01) 03/24/2024 Morbid (severe) obesity due to excess calories (ICD-10 - E66.01) 05/17/2024 intermediate accountant (current) use of anticoagulants (ICD-10 - Z79.01) 08/06/2024 Morbid (severe) obesity due to excess calories (ICD-10 - E66.01) 05/07/2024 Morbid (severe) obesity due to excess calories (ICD-10 - E66.01) 02/18/2024 Drug induced constipation (ICD-10 - K59.03) 08/13/2024 Morbid (severe) obesity due to excess calories (ICD-10 - E66.01) 04/23/2024 Morbid (severe) obesity due to excess calories (ICD-10 - E66.01) 03/10/2024 Drug induced constipation (ICD-10 - K59.03) 03/24/2024 nursing home (current) use of anticoagulants (ICD-10 - Z79.01) 03/19/2024 Drug induced constipation (ICD-10 - K59.03) 05/17/2024 Drug induced constipation (ICD-10 - K59.03) 05/07/2024 intermediate accountant (current) use of anticoagulants (ICD-10 - Z79.01) 02/18/2024 Fear of injections and transfusions (ICD-10 - F40.231) Due to a severe fear of needles and injections, the patient is insisting on IV Sedation with this procedure. The patient was advised she may drink clear liquids up until 2 hours prior to the procedure, but was instructed not to eat for 8 hours prior to the procedure. The inherent risks of anesthesia up to and including airway obstruction potentially resulting in cardiac arrest and were also discussed and the patient is agreeable to proceeding at this time. 08/06/2024 intermediate accountant (current) use of anticoagulants (ICD-10 - Z79.01) 04/23/2024 intermediate accountant (current) use of anticoagulants (ICD-10 - Z79.01) 03/10/2024 Radiculopathy, lumbar region (ICD-10 - M54.16) L4/5 The patient's SCS was interrogated reprogrammed in the office today with improved axial low back and bilateral lower extremity neuropathic pain coverage with good paresthesia overlap 03/24/2024 Drug induced constipation (ICD-10 - K59.03) 08/13/2024 intermediate accountant (current) use of anticoagulants (ICD-10 - Z79.01) The patient was instructed to discontinue aspirin for 6 days prior to the procedure. I made the patient aware that they will be at an increased risk for a thromboembolic event during this time and they are willing to accept this risk. The patient was instructed to notify their primary care physician and/or butcher assistant to obtain clearance prior to discontinuing this medication. 03/19/2024 Radiculopathy, lumbar region (ICD-10 - M54.16) L4/5 05/07/2024 Drug induced constipation (ICD-10 - K59.03) 08/06/2024 Drug induced constipation (ICD-10 - K59.03) 04/23/2024 Drug induced constipation (ICD-10 - K59.03) 08/13/2024 Drug induced constipation (ICD-10 - K59.03) 02/18/2024 Other The patient was instructed to take this medication following their permanent spinal cord stimulator implant to prevent infection. The above-named patient was evaluated in conjunction [...] Time Spent with Patient and Medical Decision Makinm minutes 03/03/2024 Other The patient voiced understanding of the treatment plan and all questions were addressed. Obtain informed consent: Spinal Cord Stimulator Implantation under fluoroscopy. Monitor pulse, blood pressure and SaO2 before, after and as needed during procedure. Verify if the patient is currently taking blood thinner. Verify patients is not currently on antibiotics for infection The patient may not drive home CARE PLAN: Knowledge deficit: Will verbalize understanding of the proposed procedure, including risk of electrical burn, complications and benefits of the procedure? Will the patient exhibit understanding of the discharge instructions? Safety: The potential for injury related to surgery was assessed; Fire risk score determined, test completed if applicable. Risk for injury related to wrong patient, site, procedure. TIME OUT for safety of patient and includes patient name, , procedure site, side, level, allergies, blood thinners, antibiotics, surgical counts, consents correct and signed etc. Risk for infection: Implements aseptic technique, protects from cross-contaminatio n, performs skin preparations. Pain/Discomfort: Patient verbalizes acceptable level of pain relief prior to discharge and the ability to engage in desired activity. I HAVE REVIEWED THE PATIENT'S MEDICATION LIST AND HAVE RECONCILED THE ABOVE MEDICATIONS. PATIENT GOALS AND SAFETY CONCERNS HAVE BEEN ADDRESSED. RN initials _JW 03/10/2024 Other The above-named patient was evaluated in [...] with Patient and Medical Decision Makin minutes 03/19/2024 Other The above-named patient was evaluated in [...] with Patient and Medical Decision Makin minutes 03/24/2024 Other The above-named patient was evaluated in [...] with Patient and Medical Decision Makin minutes 05/17/2024 Other The above-named patient was evaluated [...] with Patient and Medical Decision Makin minutes 08/13/2024 Other The above-named patient was evaluated [...] Medical Decision Makin minutes PLAN OF TREATMENT No Information Insurance Providers Payer Name Payer Address Payer Phone Subscriber Number Group Number Insured Name Patient Relationship to Insured Coverage Start Date Coverage End Date [employer] [address] [place] [phone] [id number] VALENTINA SIDDIQUI Self - patient is the insured MEDICAL (GENERAL) HISTORY Medical History History ICD Code CAD Chronic kidney disease stage 3 Depression Duodenal ulcer Hypertension GERD Restless leg syndrome Cardiomyopathy Surgical History Surgery Date(Month/Year) Parotidectomy 2004 Coronary artery stent 09/2021 Right Shoulder Replacement 06/2023
--- OUTSIDE RECORDS SUMMARY | 2025-02-16 02:51 | XMS_ITS | Encounter Summary ---
Author Organization [facility] Healthcare Address [address] [place] [address] Care Team Providers Care Assistant Paralegal Name Role Phone Skinny Hardy MD Primary Care Provider Kang Blackmon MD Unavailable [phone] Skinny Hardy MD Primary Care Provider Encounter Details Date Type Department Care Team (Late st Contact Info) Description 11/11/2022 Telephone Research [facility] [address] [facility] [address] [place], [place] [id number] Milton Sandoval MD PhD [address] [place] [address] Social History Tobacco Use Types Packs/Day Years [...] on file Legal Sex Female 12:59 PM 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 Author CCM Chronic Pain Care Plan Chronic Care Management No change(05/17 11:00 AM SAP BI DEVELOPER) No Desirae Pearson RN Note: Problem: Chronic Pain Goals: 1. Minimize further functional decline 2. Maximize quality of life 3. Control pain Strategies: - Activity/exercise program recommendation - Conservative stepwise pain medicine strategy with multi-disciplinary approach - Recommend healthy lifestyle strategies and compensatory methods as needed documented as of this encounter Visit Diagnoses Not on filedocumented in this encounter Care Teams Assistant Paralegal Relationship Specialty Start Date End Date Skinny Hardy MD PCP - General Family Practice 12/08/17 06/24/23 Skinny Hardy MD [address] [address] PCP - General Family Practice 06/25/23 Kang Blackmon MD [address] [place] [address] Surgeon Anesthesiology 01/14/20 documented as of this encounter
[2025-02-16 07:42] LABS: Hematocrit 41.3 % (37.0-47.0); Hemoglobin 13.2 g/dL (12.0-15.0); Immature Granulocyte Percent A 0.4 % (0-0.5); Lymphocytes Absolute Auto 1.94 K/mm3 (0.9-3.2); Mean Corpuscular HGB Conc 32.0 g/dl (32-36); Mean Corpuscular Hemoglobin 31.9 pg (26-34); Mean Corpuscular Volume 99.8 fl (80-100); Nucleated Red Blood Cells Absolute Auto 0.000 K/mm3 (0.0-0.012); Nucleated Red Blood Cells Perc 0.0 % (0.0-0.2); Platelet Count Result 216 k/mm3 (150-375); Red Blood Count 4.14 M/mm3 (4.2-5.4); White Blood Count 8.1 K/mm3 (4.5-10.0)
[2025-02-16 08:00] LABS: Anion Gap 9 mmol/L (4-12); Blood Urea Nitrogen 50 mg/dL (7-17); Calcium 9.2 mg/dL (8.4-10.2); Carbon Dioxide 26 mmol/L (22-30); Chloride 99 mmol/L (98-107); Estimated CRCL calculation 31 ml/min; Estimated Glomerular Filt Rate 39; Glucose 98 mg/dL (65-110); Potassium 4.6 mmol/L (3.4-5.0); Sodium 134 mmol/L (137-145)
--- NOTE | 2025-02-16 08:30 | WPDMODSED ---
Moderate Sedation Note-Pt Data Patient Data Diagnosis: Sick sinus syndrome, tachy-moses syndrome Present Complaint: No complaints Procedure to be performed/Plan: Pacemaker implantation Allergies Allergy/AdvReac Type Severity Reaction Status Date / Time Penicillins Allergy Unknown AIRWAY Verified 02/15/25 14:39 CLOSES Sulfa (Sulfonamide Allergy Unknown UNKNOWN Verified 02/15/25 14:39 Antibiotics) Home Medications ?Medication ?Instructions ?Recorded ?Confirmed ?Type multivitamin with minerals-folic 1 tablet PO DAILY 08/21/21 02/16/25 History acid 120 mcg chewable tablet (Centrum Adult 50 Plus Fresh-Fruity) aspirin 81 mg tablet 81 mg PO DAILY 12/25/21 02/16/25 History sacubitril 24 mg-valsartan 26 mg 1 tablet PO BID 12/26/21 02/16/25 History tablet (Entresto) Neuropaquell 800 mg PO DAILY 04/02/22 02/16/25 History acetaminophen 500 mg tablet 1,000 mg PO TID PRN Pain 11/01/24 02/15/25 History empagliflozin 10 mg tablet 10 mg PO DAILY 11/01/24 02/15/25 History (Jardiance) omeprazole 20 mg capsule,delayed 20 mg PO DAILY #90 caps 11/01/24 02/16/25 Rx release duloxetine 60 mg capsule,delayed 60 mg PO BID #180 caps 11/02/24 02/16/25 Rx release Compression Wrap and Lymphedema #1 ea 12/14/24 12/31/24 Rx pump atorvastatin 80 mg tablet 80 mg PO QHS #90 tabs 01/25/25 02/16/25 Rx ropinirole 1 mg tablet 2 mg (2 x 1 mg) PO BID PRN Pain 01/31/25 02/16/25 Rx #360 tabs meloxicam 15 mg tablet 15 mg PO HS 02/15/25 02/16/25 History Sedation/Anesthesia: No previous sedation/anesthesia problems (including family history). [facility] Past Medical History Medical History (Updated 01/14/25 @ 12:11 by Fabrice Napier MD) Colon cancer screening Chronic venous insufficiency of lower extremity Heart failure with preserved ejection fraction Chronic right hip pain Chronic pain of left knee Tricompartment osteoarthritis of left knee Lymphedema of both lower extremities CAD in [place] artery CKD (chronic kidney disease) stage 3, GFR 30-59 ml/min GERD (gastroesophageal reflux disease) Hx of adenomatous colonic polyps RLS (restless legs syndrome) Duodenal ulcer (~11/2018) Chronic low back pain with left-sided sciatica Idiopathic peripheral neuropathy Essential (primary) hypertension Dyslipidemia Pre-diabetes Depression Sciatica Neuropathy Surgical History Surgical History S/P insertion of spinal cord stimulator (~2023) History of right shoulder replacement (~06/2023) History of coronary angioplasty (~08/2022) History of coronary artery stent placement (~09/2021) 2 stents Hx of tonsillectomy (~1951) Hx of parotidectomy (~2004) 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 Hx of colonoscopy (~2018) Hx of esophagogastroduodenoscopy (~2018) Family History Family History Mother Hypertension Acute myocardial infarction Grandparent Acute myocardial infarction Other Acute myocardial infarction Social History Social History Smoking packs per day: 0.5 Smoking cigarettes per day: 10.0 Years smoked: 1 Smoking pack-years: 0.50 Smoking status: Never smoker Tobacco type: cigarettes Second hand tobacco smoke exposure: No Smoking end date: 04/28/70 Alcohol intake: current Drinks per week: 2 Alcohol use details: rarely Substance use: current Substance use type: does not use Lack of Transportation: No Lack of Food: Never True Current Housing: I Have Housing Concerned About Future Housing: No Difficulty Paying Gas/Electric Bills: No Difficulty Paying for Meds: No Currently Unemployed: No Education: Master's Degree or Higher Difficulty w/ Childcare or Family Care: No Living arrangements: with family Additional living arrangements comments: Gender identity (if verbalized by the patient): Female Spiritual care concerns: No Mod Sed Physical Exam Physical Exam Pre Procedural Exam: Normal: Neck, Throat, Airway, Lungs, Heart Size, Heart Rate, Heart Rhythm, Neuro Exam and Extremities and Variation: Appearance (Pleasant obese elderly lady) Hours since solid foods: 12 Hours since liquid intake: 12 Mallampati Classification: class II Internal Medicine - PN: Obj Da Vital Signs Vital Signs: Vital Signs - 24 hr 02/16/25 07:26 Temperature 36.1 C L Pulse Rate 62 Respiratory Rate 15 Blood Pressure 95/65 L Pulse Oximetry 98 Oxygen Delivery Room Air Labs 02/16/25 07:34 02/16/25 07:34 Labs: Laboratory Results - last 24 hr 02/16/25 07:34 WBC 8.1 RBC 4.14 L Hgb 13.2 Hct 41.3 MCV 99.8 MCH 31.9 MCHC 32.0 RDW 12.8 Plt Count 216 MPV 10.0 Immature Gran % (Auto) 0.4 Neut % (Auto) 64.0 Lymph % (Auto) 23.9 York % (Auto) 9.8 H Eos % (Auto) 1.5 Baso % (Auto) 0.4 Lymph # (Auto) 1.94 York # (Auto) 0.8 H Eos # (Auto) 0.1 Baso # (Auto) 0.0 Abs Immat Gran (auto) 0.03 Absolute Neuts (auto) 5.2 Absolute Nucleated RBC 0.000 Nucleated RBC % 0.0 Sodium 134 L Potassium 4.6 Chloride 99 Carbon Dioxide 26 Anion Gap 9 BUN 50 H D Creatinine 1.32 H Estim Creat Clear Calc 31 Estimated GFR 39 L Glucose 98 Calcium 9.2 ASA Classification/Sedation ASA Classification/Sedation ASA Class: II Emergent: No Risks: Risks, benefits and alternatives explained and patient/family accepted plan for sedation. Patient re-evaluated immediately prior to sedation.
--- NOTE | 2025-02-16 09:44 | ECG_ITS ---
Test Date: 2025-02-16 10:26:19 Measurements Intervals [place] Rate: 69 P: 214 IL: 273 QRS: -58 QRSD: 122 T: 30 QT: 426 QTc: 459 Interpretive Statements ELECTRONIC ATRIAL PACEMAKER INCOMPLETE RIGHT BUNDLE BRANCH BLOCK POOR R WAVE PROGRESSION BORDERLINE ECG Compared to ECG 01/01/2024 15:16:24 Sinus rhythm no longer present Electronically Signed On 02-16-2025 10:35:27 CDT by Lopez Conti D.O.
--- NOTE | 2025-02-16 09:46 | WPDCARDPROC ---
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 For treatment of this pacemaker implantation has been recommended and scheduled for this morning Procedure Procedure performed:: Implantation of permanent dual-chamber pacemaker Sedation/Medication given:: Fentanyl 50 mg Versed 2 mg Case start time 8:59 a.m. Case end time 9:40 a.m. Access site:: Left subclavian vein Estimated blood loss:: 20 cc Procedure note:: Patient was brought to the cardiac catheterization lab in the postabsorptive state where the left anterior chest wall was prepped and draped in the normal sterile fashion. Anesthesia was and infiltrated with 20 cc of lidocaine inferior to the clavicle. An incision was then made from the midclavicular line to the deltopectoral groove about 1 in below the clavicle. Electrocautery was used to provide cutaneous hemostasis. Sharp and blunt dissection was used to separate the subcutaneous tissue down to the level of the prepectoral fascia. Blunt dissection was then used to create a pocket inferior to the incision. The pocket was then packed with antibiotic soaked 4 x 4. Following this attention was turned to venous access. Using 2 separate punctures using the modified Seldinger technique the 6 Lithuanian pacemaker SafeSheath introducers were placed into the subclavian vein in these sheaths were used to advance the leads detailed below into the venous circulation into the position of the right atrium. Following this the sheaths were peeled away leaving the leads in the venous circulation. The attention was then turned to positioning the ventricular lead. The straight stylet was removed and a 3 cc syringe was used to fashion a J-tip stylet on the lead it was then used to steer through the tricuspid valve into the PA position. The straight stylet was placed into the lead was then withdrawn and advanced into the right ventricular apical position. Appropriate pacing and sensing performance was demonstrated after deployment of the fixation screw. A 10 volts stimulation showed no evidence of extracardiac stimulation. Attention was then turned to positioning the atrial lead. The straight stylet was removed and a preformed atrial J stylet was placed into the lead. This was then maneuvered into the right atrial appendage. There was little movement of the lead as the patient was in junctional rhythm at the time of the implant. After fixation screw was deployed the lead tip was fixed into position. Once again appropriate pacing and sensing performance was demonstrated using the analyzer. And again at 10 volts stimulation showed no evidence of extracardiac stimulation. After this the leads were secured to the base of the pocket using the suture sleeves and 2-0 silk ties. The retained sponge was removed from the pocket which was then irrigated with Ancef infused saline. The pacemaker generator was then connected to the lead using the torque wrench and the entire assembly was placed into the newly created pocket. This was then closed in layers using 3-0 Vicryl in interrupted fashion for the subcutaneous tissue and 4-0 Vicryl in a subcuticular fashion for the skin. Wound was dressed with an Aquacel dressing. Postop chest x-ray analgesics and antibiotics were ordered. Procedure was well tolerated and uncomplicated. Findings:: The patient received a Biotronik dual-chamber pacemaker model Amvia Edge [id number]. Serial number [id number]. The device is programmed in the DDD/CLS mode lower rate limit is 60 upper rate limit 130 . The atrial lead is a Biotronik screw-in bipolar lead model Solia S [id number]. Serial number [id number]. The P-waves are sensed at 4.6 mV the threshold is 0.7 volts at 0 milliseconds impedance 488 Ohms The ventricular lead is a Biotronik screw-in bipolar lead model Solia S [id number]. Serial number [id number]. R-waves are sensed at 6.9 mV the threshold is 0 point 6 volts at 0.4 milliseconds impedance 684 Ohms Conclusion:: Successful uncomplicated implantation of permanent Biotronik dual-chamber pacing system for treatment of sick sinus syndrome in this lady who also has SVT. Mahin Pepper MD [facility]
--- NOTE | 2025-02-16 10:25 | SUR.PHASEII ---
Shoulder immobilizer applied to left arm at this time.
[2025-02-16] MEDS: SODIUM CHLORIDE 0.9% IV 1,000 ML 50 ML IV CONT (10:52)
--- NOTE | 2025-02-16 14:01 | ADMGEN ---
This patient, Desirae José, was admitted to IMU Room 212-01. Patient/family oriented to hospital policies and general routines including ID bracelet, bed and alarms, visiting hours, pain management, procedures, bathroom and other care routines, personal items, smoking policy, room service/diet, and visiting hours. Information on how to activate the Rapid Response Team has been discussed. Patient/Family are encouraged to report perceived risks to care and to ask questions if they do not understand what they are told or what they should do.
--- NOTE | 2025-02-16 16:33 | PC.NURSE ---
Pt received from [facility] post pacemaker placement
[2025-02-16] MEDS: ceFAZolin 1 GM in SODIUM CHLORIDE 0.9% IV 50 ML 100 ML IVPB (18:17)
[2025-02-16] MEDS: DULoxetine HCL 60 MG CAPSULE.DR PO (18:18)
[2025-02-16] MEDS: SACUBITRIL/VALSARTAN 24-26 MG TABLET 1 TAB PO (18:18)
[2025-02-16] MEDS: MELOXICAM 7.5 MG TABLET 15 MG PO (20:41)
[2025-02-16] MEDS: ATORVASTATIN 40 MG TABLET 80 MG PO (20:41)
[2025-02-17] VITALS (9 sets, daily range): BP systolic 110–137; BP diastolic 70–102; PULSE 63–80; RESP 15–18; TEMP 36.6–37; O2SAT 96–97
[2025-02-17] MEDS: ceFAZolin 1 GM in SODIUM CHLORIDE 0.9% IV 50 ML 100 ML IVPB (00:04)
[2025-02-17] MEDS: MULTIVITAMINS /C LUTEIN (CENTRUM SILVER) TABLET *BKC 1 TAB PO (09:00)
[2025-02-17] MEDS: SACUBITRIL/VALSARTAN 24-26 MG TABLET 1 TAB PO (09:00)
[2025-02-17] MEDS: DULoxetine HCL 60 MG CAPSULE.DR PO (09:00)
[2025-02-17] MEDS: EMPAGLIFLOZIN 10 MG TABLET PO (09:00)
[2025-02-17] MEDS: PANTOPRAZOLE 40 MG TABLET PO (09:00)
--- NOTE | 2025-02-17 11:27 | P.DS_ITS ---
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 For treatment of this pacemaker implantation has been recommended and was placed yesterday. * Pacemaker precautions reviewed * Follow-up chest x-ray with no pneumothorax * She will return to our office in 1 week for a pacemaker and incision check * Routine pacemaker checks in our device clinic (2) Pacemaker: Code(s): Z95.0 - Presence of cardiac pacemaker Status: Acute Assessment and Plan: As above. DS: Summary Hospital Course Hospital Course: Patient was admitted on 02/16/2025 for overnight observation following elective permanent pacemaker insertion for sick sinus syndrome. Her pacemaker procedure was uncomplicated. Her pacemaker check showed normal functioning pacemaker and subsequent chest x-rays were clear without any evidence of pneumothorax. She is feeling well and does not have any significant pain at the pacemaker insertion site. Plan for discharge today. Time Spent with Patient Time attestation: Total time spent providing and/or coordinating discharge services: Exam Const: General: comfortable, no acute distress, alert and awake Orientation/consciousness: patient oriented x3 HENMT: Head: normal to inspection Eyes: General: appearance normal, both eyes and all related structures Pupils: Equal, round and reactive pupils present Neck: Neck: normal visual inspection, supple and no JVD Carotids: normal carotid upstroke Resp: Effort & Inspection: normal respiratory effort Auscultation: clear to auscultation bilaterally Cardio: Rate: regular rate Rhythm: regular rhythm Heart sounds: S1 normal heart sound present, S2 normal heart sound present and no murmurs GI: Auscultation: normal bowel sounds Skin: General skin exam: normal color Other: Left pectoral incision covered with sterile dressing. No drainage, bleeding, or hematoma. Neuro: General: patient oriented x3 Cranial nerves: Yes Equal, round and reactive pupils present Extrem: General: normal to inspection Psych: Appearance: grossly normal Mental Status: mental status grossly normal Discharge Plan Discharge Patient Disposition: Home Discharge Instructions: [facility] [address] [place] [address] DISCHARGE INSTRUCTIONS - POST PACEMAKER Activity 1. No driving until you are seen in the office for your incision check. 2. No lifting, pushing or pulling more than 5 pounds with affected arm for 1 MONTH 3. No lifting affected arm above shoulder height for 1 MONTH 4. Wear immobilizer/sling only if you are unable to remember the above activity restrictions. Recommend that it be worn at night. 5. You may shower AFTER you are seen for incision check on 02/23 at 0930 but no tub baths, swimming pool or hot tub for 1 MONTH Wound Care 1. Do not attempt to remove the Aquacel dressing. Leave dressing undisturbed until incision check at the office visit. Keep dressing dry. 2. When you are able to shower AFTER you are seen for your incision check in the office do not rub or scrub the incision. Pat dry after shower. NO lotions, powders, creams or ointments are to be applied to the incision 3. A small amount of tenderness, puffiness and bruising around the site is normal. Call if any significant pain, drainage, swelling, or redness around the site 4. Wear a bra to support the breast tissue and avoid pulling on the incision. Pad the bra strap if necessary with soft smooth cloth. *For any other questions please call the office at [phone]. Office hours are 8AM 4:30PM Friday through Friday. Patient Instructions: Antibiotic Form, Moderate Sedation (DC), Pacemaker (DC) Patient Language: Colombian Stand Alone Forms: General Discharge Instructions Follow-up/Referrals: Mahin Pepper MD [Physician, Cardiology] Referral Note: 02/23 at 0930 Discharge Medications: Continued Centrum Adult 50 Fresh-Fruity 120 mcg tablet,chewable 1 tablet PO DAILY Jardiance 10 mg tablet 10 mg PO DAILY omeprazole 20 mg capsule,delayed release(DR/EC) 20 mg PO DAILY Qty: 90 1RF aspirin 81 mg Tablet 81 mg PO DAILY sacubitril-valsartan [Entresto] 24-26 mg Tablet 1 tablet PO BID Neuropaquell 800 mg PO DAILY Rx Instructions: 4 caps per day acetaminophen 500 mg tablet 1,000 mg PO TID PRN (Reason: Pain) meloxicam 15 mg tablet 15 mg PO HS Rx Instructions: DUE FOR APPOINTMENT IN [facility]IL duloxetine 60 mg capsule,delayed release(DR/EC) 60 mg PO BID Qty: 180 1RF (DME) Compression Wrap and Lymphedema pump See Rx Instructions .Route .MEDSUPPLY Qty: 1 0RF Rx Instructions: As directed atorvastatin 80 mg tablet 80 mg PO QHS Qty: 90 1RF Rx Instructions: DUE FOR APPOINTMENT IN [facility] ropinirole 1 mg tablet 2 mg PO BID PRN (Reason: Pain) Qty: 360 1RF Rx Instructions: restless legs
== END 2025-02-17 12:02 | disposition home or self-care (01) ==
LOC: ANHCATHLAB 10:51 → ANHIMU 12:49
PROVIDERS: PCP Family Medicine; Visit Provider Specialist
PROC: 0JH606Z Insertion of Pacemaker, Dual Chamber into Chest Subcutaneous Tissue and Fascia, Open Approach (ICD-10-PCS; CPT 33208; principal; 2025-02-16 08:30)
DX: I49.5 Sick sinus syndrome (principal); I25.10 Atherosclerotic heart disease of native coronary artery without angina pectoris; I47.10 Supraventricular tachycardia, unspecified; I45.10 Unspecified right bundle-branch block; I87.2 Venous insufficiency (chronic) (peripheral); I50.30 Unspecified diastolic (congestive) heart failure; E78.5 Hyperlipidemia, unspecified; E13.22 Other specified diabetes mellitus with diabetic chronic kidney disease; I12.9 Hypertensive chronic kidney disease with stage 1 through stage 4 chronic kidney disease, or unspecified chronic kidney disease; N18.30 Chronic kidney disease, stage 3 unspecified; K21.9 Gastro-esophageal reflux disease without esophagitis; G25.81 Restless legs syndrome; G60.9 Hereditary and idiopathic neuropathy, unspecified; F32.A Depression, unspecified; G89.29 Other chronic pain; M25.551 Pain in right hip; M25.562 Pain in left knee; M54.42 Lumbago with sciatica, left side; M17.12 Unilateral primary osteoarthritis, left knee; Z79.82 Long term (current) use of aspirin; Z79.84 Long term (current) use of oral hypoglycemic drugs; Z98.890 Other specified postprocedural states; Z96.82 Presence of neurostimulator; Z95.5 Presence of coronary angioplasty implant and graft; Z86.79 Personal history of other diseases of the circulatory system; Z86.0100 Personal history of colon polyps, unspecified; Z87.11 Personal history of peptic ulcer disease; Z82.49 Family history of ischemic heart disease and other diseases of the circulatory system
CPT/HCPCS: 33208; 36415; 71045; 71046; 80048; 85025; 93005; J0690; A9270; C1779; C1785; J2003; J2250; J3010; J7030; J7040